=== PATIENT | female | born 1950 | race Caucasian/White ===

== ENCOUNTER 2018-03-28 06:28 | Day surgery (SDC) | payer MEDICARE, BC ==
[2018-03-28] MEDS ORDERED: Bupivacaine 0.5% 50 ML MDV ONE (06:59)
[2018-03-28] MEDS ORDERED: ceFAZolin 2 GM in Premix Bag 1 BAG IV ONE (07:00)
[2018-03-28] MEDS ORDERED: Lactated Ringers 1,000 ML IV SCH (07:00)
[2018-03-28] MEDS ORDERED: Propofol 200 MG/20 ML SDV ONE (07:29)
[2018-03-28] MEDS ORDERED: Midazolam 1 MG/ML 2 ML SDV ONE (07:29)
[2018-03-28] MEDS ORDERED: fentaNYL 100 MCG/2 ML SDV ONE (07:29)
--- NOTE | 2018-04-04 09:56 | OR ---
DATE OF PROCEDURE: 03/28/2018 PREOPERATIVE DIAGNOSIS: Left carpal tunnel. POSTOPERATIVE DIAGNOSIS: Left carpal tunnel. PROCEDURE PERFORMED: Release of left transverse carpal ligament. ESTIMATED BLOOD LOSS: Minimum. COMPLICATIONS: No complication. INDICATIONS: Jordana is a 67-year-old. This was diagnosed in 2014, she had moderate to severe bilateral carpal tunnel. She waited, but this got worse for the last year, quite significant in the last 6 months, tingling, burning sensation daily basis, not only at nighttime, but in the daytime seems to alter significantly her daily activities. We decided initially to proceed with a left carpal tunnel. We had discussed bilateral carpal tunnel release, but during surgery in the morning she said she would like to start with the left side, but I believe, this is a respectable demand. I have discussed with the patient the possible risks, benefits, alternatives, and complications of surgery. The nature of the surgery was explained. All questions were answered and I had informed consent. DESCRIPTION OF PROCEDURE: The patient was taken to the OR. I did my markings at the left wrist. She did receive antibiotics preop. The BRAIDING OPERATOR proceeded with slight IV sedation. The patient was put on her back and tourniquet was applied on the left upper extremity in proximity. Sterile prep and dressing were done in the usual manner on the left wrist. Time- out was taken to identify the correct surgical site to make sure all instrumentation were present in the room. I did local block Marcaine 0.25 plain subcutaneous tissue down to the transverse carpal ligament of her left wrist. The arm was elevated, tourniquet was raised to 250 mmHg. An incision was done with the scalpel starting at the wrist crease going ulnar to the thenar muscle belly about 3 cm and dissection was carried down to the subcutaneous tissue down to the transverse carpal ligament. A slight opening is done proximally with Kathy scissors, making sure not to violate the deep structures and a groove adapter was passed underneath the transverse carpal ligament and a gradual release is done. The nerve shows slight inflammation but was intact. After the surgery was done, the site was washed with saline. The skin was closed with nylon 3-0 simple sutures and compressing dressing was applied. Tourniquet was released. Blood loss was minimum. There was no complication. The patient tolerated well the operation and she was sent to recovery room in good condition. Jean-Claude Smith MD /[id number]
== END 2018-03-28 09:40 | disposition home or self-care (01) ==
LOC: JP.SDS 06:28
PROVIDERS: ATTEND Orthopaedic Surgery
DX: G56.03 Carpal tunnel syndrome, bilateral upper limbs (principal); E03.9 Hypothyroidism, unspecified; I10 Essential (primary) hypertension; E66.9 Obesity, unspecified; Z68.43 Body mass index [BMI] 50.0-59.9, adult; Z79.2 Long term (current) use of antibiotics; Z79.899 Other long term (current) drug therapy; Z88.8 Allergy status to other drugs, medicaments and biological substances
CPT/HCPCS: 64721; J0690; J2250; J2704; J3010; J7120

== ENCOUNTER 2018-08-01 06:00 | Day surgery (SDC) | payer MEDICARE, BC ==
[2018-08-01] MEDS ORDERED: ceFAZolin 2 GM in Sodium Chloride 0.9% 50 ML IV ONE (06:30)
[2018-08-01] MEDS ORDERED: Lactated Ringers 1,000 ML IV SCH (06:30)
[2018-08-01] MEDS ORDERED: Bupivacaine 0.5% 30 ML SDV ONE (07:09)
[2018-08-01] MEDS ORDERED: Propofol 200 MG/20 ML SDV ONE (07:19)
[2018-08-01] MEDS ORDERED: fentaNYL 100 MCG/2 ML SDV ONE (07:19)
[2018-08-01] MEDS ORDERED: Midazolam 1 MG/ML 2 ML SDV ONE (07:19)
[2018-08-01] MEDS ORDERED: Ketorolac 60 MG/2 ML SDV ONE (08:12)
--- NOTE | 2018-08-01 09:27 | OR ---
DATE OF PROCEDURE: 08/01/2018 PREOPERATIVE DIAGNOSIS: Right carpal tunnel. POSTOPERATIVE DIAGNOSIS: Right carpal tunnel. PROCEDURE PERFORMED: Release of right transverse carpal ligament. BLOOD LOSS: Minimal. COMPLICATIONS: No complication. INDICATIONS: Jordana has been having some numbness and tingling sensation just for the last few years. She had an EMG done in 2014 showing [id number] carpal tunnel. Since it was persisting quite significantly for the last six months to nine months, it was decided to proceed with surgery starting on the right side. I had discussed with the patient the possible risks, benefits, alternatives, and complications of surgery. The nature of the surgery was explained, all questions were answered, and I had informed consent. DESCRIPTION OF PROCEDURE: The patient was taken into the OR. I did my markings beforehand at the right wrist, and she did receive antibiotics preoperatively. The DOORMAKER proceeded with slight IV sedation. The patient was put on her back. A tourniquet was applied at the right upper extremity proximity. Sterile prep and dressing was done in the usual manner on the right wrist. Time-out was taken to identify the correct surgical site and to make sure all instrumentation were present in the room. I did a local block of Marcaine 0.25% plain to the subcutaneous tissue of the right wrist. The arm was elevated. Tourniquet was raised to 250 mmHg. An incision was done starting at the wrist crease with the scalpel and going ulnar to the thenar muscle belly about 3 cm. Dissection was carried down to the subcutaneous tissue and down to the transverse carpal ligament. A slight opening was done proximal with [place] scissors, making sure not to violate the deep structures. A groove adapter was passed and a complete release was done. The ligament was quite thick. There was some inflammation of the nerve, but the nerve was intact. The whole site was washed with saline. The skin was closed with nylon 3-0 simple sutures. A compressing dressing was applied. Tourniquet was released. Blood loss was minimal. There was no complication. The patient tolerated well the operation. She was sent to the recovery room in a good condition. Jean-Claude Smith MD /[id number]
== END 2018-08-01 09:10 | disposition home or self-care (01) ==
LOC: JP.SDS 06:00
PROVIDERS: ATTEND Orthopaedic Surgery
DX: G56.01 Carpal tunnel syndrome, right upper limb (principal); E03.9 Hypothyroidism, unspecified; M17.10 Unilateral primary osteoarthritis, unspecified knee; E66.9 Obesity, unspecified; Z68.43 Body mass index [BMI] 50.0-59.9, adult; Z79.899 Other long term (current) drug therapy; Z88.8 Allergy status to other drugs, medicaments and biological substances
CPT/HCPCS: 64721; J0690; J1885; J2250; J2704; J3010; J3490; J7050; J7120

== ENCOUNTER 2019-02-26 00:29 | Inpatient (IN) | payer BC, MEDICARE ==
--- NOTE | 2019-02-26 01:12 | EDM.PDOC ---
ED HPI GENERAL MEDICAL PROBLEM - General Chief Complaint: Gastrointestinal Problem Stated Complaint: ABD PAIN Time Seen by Provider: 02/26/19 01:05 Source of Information: Reports: Patient History Limitations: Reports: No Limitations - History of Present Illness INITIAL COMMENTS - FREE TEXT/NARRATIVE: 68-year-old female with lower abdominal pain for the past 3 days. She thought was getting slightly better this afternoon but it's worse tonight. Some chills, bowels are slower but she did have a small bowel movement this evening. No urinary symptoms. No previous similar pain, she has had an appendectomy and ovarian cyst procedure years ago. Denies nausea or vomiting. Onset: Gradual Duration: Day(s): (3 days) Associated Symptoms: Reports: Fever/Chills, Loss of Appetite, Malaise Lower Abdominal Pain Score (Numeric/FACES): 8 - Related Data Allergies Allergy/AdvReac Type Severity Reaction Status Date / Time lisinopril AdvReac Cough Verified 02/26/19 03:40 Home Meds: Home Meds Acetaminophen [Tylenol Arthritis] 650 mg PO TID PRN 03/27/18 [History] Allopurinol [Zyloprim] 300 mg PO DAILY 03/27/18 [History] Amoxicillin 2,000 mg PO ONETIME 03/27/18 [History] Cholecalciferol (Vitamin D3) [D3 Dots] 2,000 unit PO DAILY 03/27/18 [History] Furosemide 40 mg PO DAILY 03/27/18 [History] Levothyroxine Sodium [Synthroid] 25 mcg PO ASDIRECTED 03/27/18 [History] Losartan Potassium [Cozaar] 100 mg PO DAILY 03/27/18 [History] Magnesium Oxide [Magnesium] 500 mg PO DAILY 03/27/18 [History] [place]-3/DHA/Epa/Fish Oil [[place]-3 Fish Oil 1,000 MG Sfgl] 1 cap PO DAILY [History] Past Medical History HEENT History: Reports: None, Impaired Vision Cardiovascular History: Reports: High Cholesterol, Hypertension TAILMAN History: Reports: , Spontaneous Musculoskeletal History: Reports: Arthritis, Back Pain, Chronic Neurological History: Reports: None Endocrine/Metabolic History: Reports: Hypothyroidism, Obesity/BMI 30+, Vitamin D Deficiency, Other (See Below) Other Endocrine/Metabolic History: para thyroid removed - Infectious Disease History Infectious Disease History: Reports: Chicken Pox, Measles - Past Surgical History Cardiovascular Surgical History: Reports: None GI Surgical History: Reports: Appendectomy, Colonoscopy Female Surgical History: Reports: Section Endocrine Surgical History: Reports: None Neurological Surgical History: Reports: Other (See Below) Other Neurological Surgeries/Procedures: back surgery for spinal stenosis Musculoskeletal Surgical History: Reports: Hip Replacement Social & Family History - Family History Family Medical History: Noncontributory - Tobacco Use Smoking Status *Q: Never Smoker - Caffeine Use Caffeine Use: Reports: Coffee - Recreational Drug Use Recreational Drug Use: No ED ROS GENERAL - Review of Systems Review Of Systems: See Below Constitutional: Reports: Chills, Malaise HEENT: Reports: No Symptoms Respiratory: Reports: No Symptoms Cardiovascular: Reports: No Symptoms GI/Abdominal: Reports: Abdominal Pain : Reports: No Symptoms Skin: Reports: No Symptoms Neurological: Reports: No Symptoms ED EXAM, GI/ABD - Physical Exam Exam: See Below Exam Limited By: No Limitations General Appearance: Alert, No Apparent Distress Eyes: Bilateral: Normal Appearance (No jaundice) Respiratory/Chest: No Respiratory Distress, Lungs Clear Cardiovascular: Regular Rate, Rhythm GI/Abdominal Exam: Normal Bowel Sounds, Soft, Tender (Very tender with rebound tenderness in the suprapubic and left abdomen ) Extremities: Pedal Edema (Symmetric significant pedal edema) Neurological: Alert, Oriented Psychiatric: Normal Affect, Normal Mood Course - Vital Signs Last Recorded V/S: Last Vital Signs Temp 98.8 F 02/26/19 03:29 Pulse 70 02/26/19 04:22 Resp 18 02/26/19 04:22 BP 179/82 H 02/26/19 03:29 Pulse Ox 89 L 02/26/19 04:22 - Orders/Labs/Meds Orders: Active Orders 24 hr Category Date Time Status CULTURE URINE [RM] Stat Lab 02/26/19 02:44 Received Medication Orders Acetaminophen (Tylenol) 650 mg PO Q4H PRN PRN Reason: Pain (Mild 1-3)/fever Albuterol (Proventil Neb Soln) 2.5 mg NEB Q4H PRN PRN Reason: Shortness Of Breath/wheezing Allopurinol (Zyloprim) 300 mg PO DAILY VIJAY Bisacodyl (Dulcolax) 5 mg PO DAILY PRN PRN Reason: Constipation Docusate Sodium (Colace) 100 mg PO BID PRN PRN Reason: Constipation Furosemide (Lasix) 40 mg PO DAILY [facility] Ampicillin Sodium/Sulbactam (Sodium 3 gm/ Sodium Chloride) 100 mls @ 200 mls/ hr IV Q6H [facility] Sodium Chloride (Normal Saline) 1,000 mls @ 125 mls/hr IV ASDIRECTED VIJAY Last Admin: 02/26/19 04:09 Dose: 125 mls/hr Levothyroxine Sodium (Levothyroxine) 25 mcg PO ACBREAKFAST [facility] Losartan Potassium (Cozaar) 100 mg PO DAILY [facility] Melatonin (Melatonin) 6 mg PO BEDTIME PRN PRN Reason: Insomnia Ondansetron HCl (Zofran Odt) 4 mg PO Q6H PRN PRN Reason: Nausea able to take PO Ondansetron HCl (Zofran) 4 mg IV Q4H PRN PRN Reason: Nausea/Vomiting Oxycodone HCl (Oxycodone) 5 mg PO Q4H PRN PRN Reason: Pain (moderate 4-6) Last Admin: 02/26/19 04:26 Dose: 5 mg Pantoprazole Sodium (Protonix Iv) 40 mg IVPUSH ACBREAKFAST [facility] Labs: Laboratory Tests 02/26/19 02/26/19 02/26/19 Range/Units 01:09 01:23 01:23 WBC 25.1 H (4.5-11.0) K/uL RBC 5.48 (3.30-5.50) M/uL Hgb 16.1 H (12.0-15.0) g/dL Hct 49.5 H (36.0-48.0) % MCV 90 (80-98) fL MCH 29 (27-31) pg MCHC 33 (32-36) % Plt Count 218 (150-400) K/uL Neut % (Auto) 83 H (36-66) % Lymph % (Auto) 8 L (24-44) % Cloud % (Auto) 9 H (2-6) % Eos % (Auto) 0 L (2-4) % Baso % (Auto) 0 (0-1) % Sodium 133 L (140-148) mmol/L Potassium 4.0 (3.6-5.2) mmol/L Chloride 97 L (100-108) mmol/L Carbon Dioxide 27 (21-32) mmol/L Anion Gap 13.0 (5.0-14.0) mmol/L BUN 28 H (7-18) mg/dL Creatinine 1.0 (0.6-1.0) mg/dL Est Cr Clr Drug Dosing 39.50 mL/min Estimated GFR (MDRD) 55 L (>60) Glucose 139 H (74-106) mg/dL Calcium 9.2 (8.5-10.1) mg/dL AST (15-37) U/L ALT (12-78) U/L Alkaline Phosphatase (46-116) U/L Amylase (25-115) U/L Lipase (73-393) U/L Urine Color Yellow Urine Appearance Cloudy Urine pH 5.0 (4.5-8.0) Ur Specific [place] 1.025 (1.008-1.030) Urine Protein 30 H (NEGATIVE) mg/dL Urine Glucose (UA) Normal (NEGATIVE) mg/dL Urine Ketones 50 H (NEGATIVE) mg/dL Urine Occult Blood Moderate (NEGATIVE) Urine Nitrite Negative (NEGATIVE) Urine Bilirubin Negative (NEGATIVE) Urine Urobilinogen Normal (NORMAL) mg/dL Ur Leukocyte Esterase Large (NEGATIVE) Urine RBC 5-10 H (0-5) Urine WBC 20-30 H (0-5) Ur Epithelial Cells Many Amorphous Sediment Moderate Urine Bacteria Many Urine Mucus Not seen 02/26/19 02/26/19 Range/Units 02:07 02:09 WBC (4.5-11.0) K/uL RBC (3.30-5.50) M/uL Hgb (12.0-15.0) g/dL Hct (36.0-48.0) % MCV (80-98) fL MCH (27-31) pg MCHC (32-36) % Plt Count (150-400) K/uL Neut % (Auto) (36-66) % Lymph % (Auto) (24-44) % Cloud % (Auto) (2-6) % Eos % (Auto) (2-4) % Baso % (Auto) (0-1) % Sodium (140-148) mmol/L Potassium (3.6-5.2) mmol/L Chloride (100-108) mmol/L Carbon Dioxide (21-32) mmol/L Anion Gap (5.0-14.0) mmol/L BUN (7-18) mg/dL Creatinine (0.6-1.0) mg/dL Est Cr Clr Drug Dosing mL/min Estimated GFR (MDRD) (>60) Glucose (74-106) mg/dL Calcium (8.5-10.1) mg/dL AST 17 (15-37) U/L ALT 25 (12-78) U/L Alkaline Phosphatase 100 (46-116) U/L Amylase 110 (25-115) U/L Lipase 293 (73-393) U/L Urine Color Urine Appearance Urine pH (4.5-8.0) Ur Specific [place] (1.008-1.030) Urine Protein (NEGATIVE) mg/dL Urine Glucose (UA) (NEGATIVE) mg/dL Urine Ketones (NEGATIVE) mg/dL Urine Occult Blood (NEGATIVE) Urine Nitrite (NEGATIVE) Urine Bilirubin (NEGATIVE) Urine Urobilinogen (NORMAL) mg/dL Ur Leukocyte Esterase (NEGATIVE) Urine RBC (0-5) Urine WBC (0-5) Ur Epithelial Cells Amorphous Sediment Urine Bacteria Urine Mucus Meds: Medications Generic Name Dose Route Start Last Admin Trade Name Freq PRN Reason Stop Dose Admin Acetaminophen 650 mg 02/26/19 03:29 Tylenol PO Q4H PRN Pain (Mild 1-3)/fever Albuterol 2.5 mg 02/26/19 03:29 Proventil Neb Soln NEB Q4H PRN Shortness Of Breath/wheezing Allopurinol 300 mg 02/26/19 09:00 Zyloprim PO DAILY [facility] Bisacodyl 5 mg 02/26/19 03:29 Dulcolax PO DAILY PRN Constipation Docusate Sodium 100 mg 02/26/19 03:29 Colace PO BID PRN Constipation Furosemide 40 mg 02/26/19 09:00 Lasix PO DAILY [facility] Ampicillin Sodium/Sulbactam 100 mls @ 200 mls/hr 02/26/19 08:00 Sodium 3 gm/ Sodium Chloride IV Q6H [facility] Sodium Chloride 1,000 mls @ 125 mls/hr 02/26/19 03:29 02/26/19 04:09 Normal Saline IV 125 mls/hr ASDIRECTED VIJAY Administration Levothyroxine Sodium 25 mcg 02/26/19 07:30 Levothyroxine PO ACBREAKFAST [facility] Losartan Potassium 100 mg 02/26/19 09:00 Cozaar PO DAILY [facility] Melatonin 6 mg 02/26/19 03:29 Melatonin PO BEDTIME PRN Insomnia Ondansetron HCl 4 mg 02/26/19 03:29 Zofran Odt PO Q6H PRN Nausea able to take PO Ondansetron HCl 4 mg 02/26/19 03:29 Zofran IV Q4H PRN Nausea/Vomiting Oxycodone HCl 5 mg 02/26/19 03:29 02/26/19 04:26 Oxycodone PO 5 mg Q4H PRN Administration Pain (moderate 4-6) Pantoprazole Sodium 40 mg 02/26/19 07:30 Protonix Iv IVPUSH ACBREAKFAST VIJAY Discontinued Medications Generic Name Dose Route Start Last Admin Trade Name Freq PRN Reason Stop Dose Admin Fentanyl 50 mcg 02/26/19 02:25 02/26/19 02:33 Sublimaze IVPUSH 02/26/19 02:26 50 mcg ONETIME ONE Administration Ampicillin Sodium/Sulbactam 100 mls @ 200 mls/hr 02/26/19 01:37 02/26/19 01: 53 Sodium 3 gm/ Sodium Chloride IV 02/26/19 02:06 200 mls/hr ONETIME ONE Administration Sodium Chloride 1,000 mls @ 1,000 mls/hr 02/26/19 01:45 02/26/19 01:53 Normal Saline IV 1,000 mls/hr ASDIRECTED VIJAY Administration Levothyroxine Sodium 25,000 mcg 02/26/19 03:29 Levothyroxine PO ASDIRECTED VIJAY Ondansetron HCl 4 mg 02/26/19 02:25 02/26/19 02:30 Zofran IVPUSH 02/26/19 02:26 4 mg ONETIME ONE Administration - Re-Assessments/Exams Free Text/Narrative Re-Assessment/Exam: 02/26/19 01:12 CBC and BMP were obtained as well as a UA by clean catch. CT the abdomen and pelvis without contrast was ordered. Diverticulitis is expected. 02/26/19 02:08 White count returned just 25,000, CT scan shows inflammation around the pancreatic head. Amylase and lipase were added. 02/26/19 02:20 Amylase and lipase are normal. 3 g of Unasyn was given if this may be inflammation from diverticulitis of the transverse colon. Patient will need admission for hydration, pain control, and possibly gallbladder ultrasound or other further evaluation in the morning. Departure - Departure Time of Disposition: 03:35 Disposition: Admitted As Inpatient 64 Condition: Fair Clinical Impression: Abdominal pain - Discharge Information
[2019-02-26] MEDS ORDERED: Ampicillin/Sulbactam Na 3 GM in Sodium Chloride 0.9% 100 ML IV ONE (01:37)
[2019-02-26] MEDS ORDERED: Sodium Chloride 0.9% 1,000 ML IV SCH (01:45)
--- NOTE | 2019-02-26 02:04 | CRLCT ---
INDICATION: Lower abdominal pain. TECHNIQUE: 3 mm noncontrast axial imaging has been performed through the abdomen and pelvis. Sagittal and coronal reconstructions have been obtained. FINDINGS: The lung bases are free of infiltrate. The noncontrast liver is unremarkable. The gallbladder is mildly prominent. Gallstone is noted. Abnormal inflammatory change within the head of the pancreas is identified most compatible with acute pancreatitis. Some stranding of the fat is noted. This is adjacent to the duodenum. No significant peripancreatic fluid is seen. The body and tail demonstrate no significant inflammatory change. No obvious common bile duct stone is seen. No significant dilatation of common bile duct is seen. The noncontrast spleen and bilateral adrenal glands are within normal limits. The kidneys demonstrate no hydronephrosis bilaterally. No significant retroperitoneal lymphadenopathy is seen. The uterus is in the midline. There is some beam hardening artifact due to a right hip arthroplasty. No evidence for bowel obstruction. Retained fluid within the right colon is noted. Some scattered fluid and gas within nondistended small bowel loops are noted. No free air is seen. No intra-abdominal or pelvic abscess is seen. IMPRESSION: 1. Inflammatory changes centered over the head of the pancreas most compatible with acute pancreatitis. No significant fluid is seen. 2. There is a small gallstone identified. No inflammatory change of the gallbladder is seen. 3. Fluid and gas-filled small and large bowel is identified. This is greatest in the right colon. No evidence for high-grade bowel obstruction. Dictated by Noe Degroot MD @ 02/26/2019 2:03:34 AM Please note that all CT scans at this facility use dose modulation, iterative reconstruction, and/or weight-based dosing when appropriate to reduce radiation dose to as low as reasonably achievable. Dictated by: Noe Degroot MD @ 02/26/2019 02:03:43 (Electronically Signed)
[2019-02-26] MEDS ORDERED: fentaNYL 100 MCG/2 ML SDV IVPUSH ONE (02:25)
[2019-02-26] MEDS ORDERED: Ondansetron 4 MG/2 ML SDV IVPUSH ONE (02:25)
--- NOTE | 2019-02-26 03:17 | PCM.HP ---
H&P History of Present Illness - General Date of Service: 02/26/19 Admit Problem/Dx: Admission Diagnosis/Problem Admission Diagnosis/Problem Abdominal pain Source of Information: Patient, Family (Guerita) History Limitations: Reports: No Limitations - History of Present Illness Initial Comments - Free Text/Narative: Chief Complaint: Abdominal pain for 3 days - History of Present Illness 68-year-old female with lower abdominal pain for the past 3 days. She thought was getting slightly better this afternoon but it's worse tonight. Some chills, bowels are slower but she did have a small bowel movement this evening. No urinary symptoms. No previous similar pain, she has had an appendectomy and ovarian cyst procedure years ago. Denies nausea or vomiting. Onset: Gradual Duration: Day(s): (3 days) Associated Symptoms: Reports: Fever/Chills, Loss of Appetite, Malaise Pain Score: 8 ER Evaluation CBC and BMP were obtained as well as a UA by clean catch. CT the abdomen and pelvis without contrast was ordered. Diverticulitis is expected. 02/26/19 02:08 White count returned just 25,000, CT scan shows inflammation around the pancreatic head. Amylase and lipase were added. single gallstone noted 02/26/19 02:20 Amylase and lipase are normal. 3 g of Unasyn was given if this may be inflammation from diverticulitis of the transverse colon. Patient will need admission for hydration, pain control, and possibly gallbladder ultrasound or other further evaluation in the morning. Onset of Symptoms: Reports: Gradual Symptom Onset Date: 02/23/19 Duration of Symptoms: Reports: Day(s): Location: Reports: Abdomen Quality: Reports: Sharp, Stabbing Severity: Mild (rate pain at 8) Worsens with: Reports: None Associated Symptoms: Reports: Fever/Chills, Loss of Appetite, Nausea/Vomiting ( dry heaves all day on Tuesday), Weakness Lower Abdominal Pain Score (Numeric/FACES): 8 - Related Data Allergies/Adverse Reactions: Allergies Allergy/AdvReac Type Severity Reaction Status Date / Time lisinopril AdvReac Cough Verified 02/26/19 03:40 Home Medications: Home Meds Acetaminophen [Tylenol Arthritis] 650 mg PO TID PRN 03/27/18 [History] Allopurinol [Zyloprim] 300 mg PO DAILY 03/27/18 [History] Amoxicillin 2,000 mg PO ONETIME 03/27/18 [History] Cholecalciferol (Vitamin D3) [D3 Dots] 2,000 unit PO DAILY 03/27/18 [History] Furosemide 40 mg PO DAILY 03/27/18 [History] Levothyroxine Sodium [Synthroid] 25 mg PO ASDIRECTED 03/27/18 [History] Losartan Potassium [Cozaar] 100 mg PO DAILY 03/27/18 [History] Magnesium Oxide [Magnesium] 500 mg PO DAILY 03/27/18 [History] [place]-3/DHA/Epa/Fish Oil [[place]-3 Fish Oil 1,000 MG Sfgl] 1 cap PO DAILY [History] Past Medical History HEENT History: Reports: None, Impaired Vision Cardiovascular History: Reports: High Cholesterol, Hypertension TIRE MAN History: Reports: , Spontaneous Musculoskeletal History: Reports: Arthritis, Back Pain, Chronic Neurological History: Reports: None Endocrine/Metabolic History: Reports: Hypothyroidism, Obesity/BMI 30+, Vitamin D Deficiency, Other (See Below) Other Endocrine/Metabolic History: para thyroid removed - Infectious Disease History Infectious Disease History: Reports: Chicken Pox, Measles - Past Surgical History Cardiovascular Surgical History: Reports: None GI Surgical History: Reports: Appendectomy, Colonoscopy Female Surgical History: Reports: Section Endocrine Surgical History: Reports: None Neurological Surgical History: Reports: Other (See Below) Other Neurological Surgeries/Procedures: back surgery for spinal stenosis Musculoskeletal Surgical History: Reports: Hip Replacement Social & Family History - Family History Family Medical History: Noncontributory - Tobacco Use Smoking Status *Q: Never Smoker - Caffeine Use Caffeine Use: Reports: Coffee - Recreational Drug Use Recreational Drug Use: No - Living Situation & Occupation Living situation: Reports: , with Family (retired [employer] 20 years, [place] 47 years to [place], 9 children, lives in [place], [place].) Occupation: Retired H&P Review of Systems - Review of Systems: Review Of Systems: See Below General: Reports: Fever, Chills, Malaise, Weakness, Decreased Appetite HEENT: Reports: No Symptoms Pulmonary: Reports: No Symptoms Cardiovascular: Reports: No Symptoms Gastrointestinal: Reports: Abdominal Pain, Decreased Appetite, Nausea, Vomiting (dry heaves) Genitourinary: Reports: No Symptoms Musculoskeletal: Reports: Other (severe bilateral leg edema. evaluated at [facility], no intervention) Skin: Reports: No Symptoms Psychiatric: Reports: No Symptoms Neurological: Reports: No Symptoms Hematologic/Lymphatic: Reports: No Symptoms Immunologic: Reports: No Symptoms Exam - Exam Exam: See Below - Vital Signs Vital Signs: Last Vital Signs Temp 37.5 C 02/26/19 01:56 Pulse 70 02/26/19 02:41 Resp 18 02/26/19 02:41 BP 167/74 H 02/26/19 02:41 Pulse Ox 93 L 02/26/19 02:41 Weight: 123.7 kg - Exam Quality Assessment: Supplemental Oxygen General: Alert, Oriented, 4 HEENT: PERRLA, Conjunctiva Clear, EACs Clear, EOMI, Hearing Intact, Mucosa Moist & [place], Nares Patent, Normal Nasal Septum, Posterior Pharynx Clear, TMs Clear, Other (natural teeth) Neck: Supple, Trachea Midline, 2 Lungs: Clear to Auscultation, Normal Respiratory Effort Cardiovascular: Regular Rate, Regular Rhythm GI/Abdominal Exam: Normal Bowel Sounds, Tender (generalized, increase pain RUQ, Epigastric and low pelvis.) (Female) Exam: Deferred Rectal (Female) Exam: Deferred Back Exam: Normal Inspection Extremities: Other (bilateral lymphedema 4+ chronic) Skin: Warm, Dry, Intact Neurological: Strength Equal Bilateral, Normal Speech Neuro Extensive - Mental Status: Alert, Oriented x3, Normal Mood/Affect, Normal Cognition Neuro Extensive - Motor, Sensory, Reflexes: CN II-XII Intact Psychiatric: Alert, Normal Affect, Normal Mood - Patient Data Lab Results Last 24 hrs: Laboratory Results - last 24 hr 02/26/19 02/26/19 02/26/19 Range/Units 01:09 01:23 01:23 WBC 25.1 H (4.5-11.0) K/uL RBC 5.48 (3.30-5.50) M/uL Hgb 16.1 H (12.0-15.0) g/dL Hct 49.5 H (36.0-48.0) % MCV 90 (80-98) fL MCH 29 (27-31) pg MCHC 33 (32-36) % Plt Count 218 (150-400) K/uL Neut % (Auto) 83 H (36-66) % Lymph % (Auto) 8 L (24-44) % [place] % (Auto) 9 H (2-6) % Eos % (Auto) 0 L (2-4) % Baso % (Auto) 0 (0-1) % Sodium 133 L (140-148) mmol/L Potassium 4.0 (3.6-5.2) mmol/L Chloride 97 L (100-108) mmol/L Carbon Dioxide 27 (21-32) mmol/L Anion Gap 13.0 (5.0-14.0) mmol/L BUN 28 H (7-18) mg/dL Creatinine 1.0 (0.6-1.0) mg/dL Est Cr Clr Drug Dosing 39.50 mL/min Estimated GFR (MDRD) 55 L (>60) Glucose 139 H (74-106) mg/dL Calcium 9.2 (8.5-10.1) mg/dL AST (15-37) U/L ALT (12-78) U/L Alkaline Phosphatase (46-116) U/L Amylase (25-115) U/L Lipase (73-393) U/L Urine Color Yellow Urine Appearance Cloudy Urine pH 5.0 (4.5-8.0) Ur Specific [place] 1.025 (1.008-1.030) Urine Protein 30 H (NEGATIVE) mg/dL Urine Glucose (UA) Normal (NEGATIVE) mg/dL Urine Ketones 50 H (NEGATIVE) mg/dL Urine Occult Blood Moderate (NEGATIVE) Urine Nitrite Negative (NEGATIVE) Urine Bilirubin Negative (NEGATIVE) Urine Urobilinogen Normal (NORMAL) mg/dL Ur Leukocyte Esterase Large (NEGATIVE) Urine RBC 5-10 H (0-5) Urine WBC 20-30 H (0-5) Ur Epithelial Cells Many Amorphous Sediment Moderate Urine Bacteria Many Urine Mucus Not seen 02/26/19 02/26/19 Range/Units 02:07 02:09 WBC (4.5-11.0) K/uL RBC (3.30-5.50) M/uL Hgb (12.0-15.0) g/dL Hct (36.0-48.0) % MCV (80-98) fL MCH (27-31) pg MCHC (32-36) % Plt Count (150-400) K/uL Neut % (Auto) (36-66) % Lymph % (Auto) (24-44) % [place] % (Auto) (2-6) % Eos % (Auto) (2-4) % Baso % (Auto) (0-1) % Sodium (140-148) mmol/L Potassium (3.6-5.2) mmol/L Chloride (100-108) mmol/L Carbon Dioxide (21-32) mmol/L Anion Gap (5.0-14.0) mmol/L BUN (7-18) mg/dL Creatinine (0.6-1.0) mg/dL Est Cr Clr Drug Dosing mL/min Estimated GFR (MDRD) (>60) Glucose (74-106) mg/dL Calcium (8.5-10.1) mg/dL AST 17 (15-37) U/L ALT 25 (12-78) U/L Alkaline Phosphatase 100 (46-116) U/L Amylase 110 (25-115) U/L Lipase 293 (73-393) U/L Urine Color Urine Appearance Urine pH (4.5-8.0) Ur Specific [place] (1.008-1.030) Urine Protein (NEGATIVE) mg/dL Urine Glucose (UA) (NEGATIVE) mg/dL Urine Ketones (NEGATIVE) mg/dL Urine Occult Blood (NEGATIVE) Urine Nitrite (NEGATIVE) Urine Bilirubin (NEGATIVE) Urine Urobilinogen (NORMAL) mg/dL Ur Leukocyte Esterase (NEGATIVE) Urine RBC (0-5) Urine WBC (0-5) Ur Epithelial Cells Amorphous Sediment Urine Bacteria Urine Mucus Result Diagrams: 02/26/19 01:23 02/26/19 01:23 - Problem List (1) Abdominal pain SNOMED Code(s): 36289123 ICD Code: R10.9 - UNSPECIFIED ABDOMINAL PAIN Status: Acute Priority: High Current Visit: Yes (2) Gallstone SNOMED Code(s): 021094946 ICD Code: K80.20 - CALCULUS OF GALLBLADDER W/O CHOLECYSTITIS W/O OBSTRUCTION Status: Acute Priority: High Current Visit: Yes Qualifiers: Biliary obstruction: without biliary obstruction (3) Hypertension SNOMED Code(s): 23384291 ICD Code: I10 - ESSENTIAL (PRIMARY) HYPERTENSION Status: Acute Priority: Low Current Visit: Yes Qualifiers: Hypertension type: unspecified Qualified Code(s): I10 - Essential (primary ) hypertension Problem List Initiated/Reviewed/Updated: Yes Orders Last 24hrs: Active Orders 24 hr Category Date Time Status Patient Status Manage Transfer [TRANSFER] Routine ADT 02/26/19 02:55 Active CULTURE URINE [RM] Stat Lab 02/26/19 02:44 Received Sodium Chloride 0.9% [Normal Saline] 1,000 ml Med 02/26/19 01:45 Active IV ASDIRECTED Resuscitation Status Routine Resus Stat 02/26/19 02:57 Ordered Medication Orders Sodium Chloride (Normal Saline) 1,000 mls @ 1,000 mls/hr IV ASDIRECTED VIJAY Last Admin: 02/26/19 01:53 Dose: 1,000 mls/hr Assessment/Plan Comment:: ASSESSMENT AND PLAN - History of Present Illness 68-year-old female with lower abdominal pain for the past 3 days. She thought was getting slightly better this afternoon but it's worse tonight. Some chills, bowels are slower but she did have a small bowel movement this evening. No urinary symptoms. No previous similar pain, she has had an appendectomy and ovarian cyst procedure years ago. Denies nausea or vomiting. Also has severe bilateral leg lymphedema, which has been evaluated by [facility], no treatment recommended. ER Evaluation CBC and BMP were obtained as well as a UA by clean catch. CT the abdomen and pelvis without contrast was ordered. Diverticulitis is expected. 02/26/19 02:08 White count returned just 25,000, CT scan shows inflammation around the pancreatic head. Amylase and lipase were added. single gallstone noted 02/26/19 02:20 Amylase and lipase are normal. 3 g of Unasyn was given if this may be inflammation from diverticulitis of the transverse colon. Patient will need admission for hydration, pain control, and possibly gallbladder ultrasound or other further evaluation in the morning. Abdominal pain -CT reports acute pancreatitis,with a normal lipase and amylase, likely secondary to diverticulitis, although this was not described on CT scan report. White blood cell count is elevated 25.1. -Nothing by mouth -IV fluids for hydration Normal Saline rate to 125 mL/h -Pain and nausea medication as needed -IV Unasyn 3 gram every 6 hours, first dose given in ER. -Ultrasound Abdominal complete in a.m. Hypertension -continue home medications MAINTENANCE ISSUES -DVT prophylaxis; SCD -GI prophylaxis; IV Protonix -Chavarria catheter; not indicated -Nutrition; nothing by mouth -Nicotine dependence; not required -consult to Spiritual for daily prayers CODE STATUS-FULL CODE ADMISSION STATUS-patient will be admitted to inpatient status, expect at least a 2 night hospital stay for evaluation and management of problems as outlined above. At the time of this admission I do not reasonably expected evaluation and management of this problem will require more than a 96 hour hospital stay. DISPOSITION-anticipate discharge to home after the hospital stay. PRIMARY CARE PROVIDER-Dr. Arana HOSPITALIST: Dr. Jamison Ibanez
[2019-02-26] MEDS ORDERED: Albuterol 0.083% 2.5 MG/3 ML Neb Soln NEB PRN (03:29)
[2019-02-26] MEDS ORDERED: Levothyroxine 25 MCG Tab PO SCH (03:29)
[2019-02-26] MEDS ORDERED: Ondansetron 4 MG/2 ML SDV IV PRN (03:29)
[2019-02-26] MEDS ORDERED: Docusate Sodium 100 MG Cap PO PRN (03:29)
[2019-02-26] MEDS ORDERED: Bisacodyl 5 MG Tab PO PRN (03:29)
[2019-02-26] MEDS: Sodium Chloride 0.9% 1,000 ML IV SCH ×2 (04:09→14:07)
[2019-02-26] MEDS: oxyCODONE 5 MG Tab PO PRN ×2 (04:26→13:56)
[2019-02-26] MEDS: Acetaminophen 325 MG Tab PO PRN (07:22)
[2019-02-26] MEDS ORDERED: Ampicillin/Sulbactam Na 3 GM in Sodium Chloride 0.9% 100 ML IV SCH (08:00)
--- NOTE | 2019-02-26 08:14 | CRLUS ---
INDICATION: Abdominal pain. CT exam demonstrated pancreatic inflammation COMPARISON: CT abdomen pelvis dated 02/26/2019 TECHNIQUE: 2D silva-scale imaging and color Doppler analysis was performed of the abdomen. FINDINGS: The patient`s liver is of normal size and has uniform echogenicity. The pancreatic body appears normal. The pancreatic head and tail were obscured. There is no evidence of ascites. There is a normal appearance of the hepatic IVC and proximal abdominal aorta. Small stones and sludge are noted within the gallbladder lumen. The reel winder stated the patient was not focally tender over the gallbladder during the exam. There is no evidence of edema within the gallbladder wall or pericholecystic fluid. The gallbladder wall measures 3 mm in thickness. The common bile duct is of normal size and measures 5.7 mm in diameter at the level of the faheem hepatis. The right kidney measures 11.2 cm in length and the left kidney measures 11 cm. There is no evidence of a calculus or hydronephrosis within either kidney. IMPRESSION: Cholelithiasis and biliary sludge. No evidence of acute inflammation within the gallbladder wall or bile duct obstruction. Dictated by Dada Owens MD @ 02/26/2019 8:12:22 AM Read by: Dada Owens MD @ 02/26/2019 08:12:28 RD/Dictated by: Dada Owens MD @ 02/27/2019 3:14:00 PM (Electronically Signed)
[2019-02-26] MEDS: Pantoprazole 40 MG Vial IVPUSH SCH (08:29)
[2019-02-26] MEDS: Levothyroxine 25 MCG Tab PO SCH (08:41)
[2019-02-26] MEDS: Losartan 50 MG Tab PO SCH (08:53)
[2019-02-26] MEDS: Furosemide 40 MG Tab PO SCH (08:54)
[2019-02-26] MEDS: Allopurinol 300 MG Tab PO SCH (08:55)
[2019-02-26] MEDS: Ampicillin/Sulbactam Na 3 GM in Sodium Chloride 0.9% 100 ML IV SCH ×3 (09:14→20:29)
--- NOTE | 2019-02-26 10:47 | PCM.PN ---
- General Info Date of Service: 02/26/19 Subjective Update: Ms. Hood is a 68-year-old woman admitted through the emergency department early this morning with abdominal pain, nausea and vomiting. Pain and been present for a period of about 3 days, very intense and associated with nausea and vomiting. Pain mainly located in the cosmo-umbilical area, with some radiation to the back. CT scan of abdomen and pelvis showing evidence of inflammation at the head of the pancreas, lipase and amylase levels were within normal range. Follow-up labs this morning show improvement in white blood cell count 22,000, lipase level remains normal, bilirubin mildly elevated at 1.5. Abdominal ultrasound obtained this morning shows sludge and stones within the gallbladder but no evidence of bladder wall thickening or ductal dilatation. Pain has improved since admission, but not totally resolved. Functional Status: Reports: Pain Controlled, Urinating - Review of Systems General: Reports: Weakness. Denies: Fever, Chills Pulmonary: Reports: No Symptoms Cardiovascular: Reports: No Symptoms Gastrointestinal: Reports: Abdominal Pain, Nausea, Vomiting. Denies: Diarrhea, Difficulty Swallowing, Hematochezia, Melena - Patient Data Vitals - Most Recent: Last Vital Signs Temp 98.4 F 02/26/19 08:00 Pulse 73 02/26/19 08:00 Resp 20 02/26/19 08:00 BP 143/58 H 02/26/19 08:53 Pulse Ox 93 L 02/26/19 08:00 Weight - Most Recent: 272 lb 11.389 oz I&O - Last 24 Hours: Intake & Output 02/25/19 02/26/19 02/26/19 22:59 06:59 14:59 Intake Total 328 100 Output Total 125 200 Balance 203 -100 Lab Results Last 24 Hours: Laboratory Results - last 24 hr 02/26/19 02/26/19 02/26/19 Range/Units 01:09 01:23 01:23 WBC 25.1 H (4.5-11.0) K/uL RBC 5.48 (3.30-5.50) M/uL Hgb 16.1 H (12.0-15.0) g/dL Hct 49.5 H (36.0-48.0) % MCV 90 (80-98) fL MCH 29 (27-31) pg MCHC 33 (32-36) % Plt Count 218 (150-400) K/uL Neut % (Auto) 83 H (36-66) % Lymph % (Auto) 8 L (24-44) % [place] % (Auto) 9 H (2-6) % Eos % (Auto) 0 L (2-4) % Baso % (Auto) 0 (0-1) % Sodium 133 L (140-148) mmol/L Potassium 4.0 (3.6-5.2) mmol/L Chloride 97 L (100-108) mmol/L Carbon Dioxide 27 (21-32) mmol/L Anion Gap 13.0 (5.0-14.0) mmol/L BUN 28 H (7-18) mg/dL Creatinine 1.0 (0.6-1.0) mg/dL Est Cr Clr Drug Dosing 39.50 mL/min Estimated GFR (MDRD) 55 L (>60) Glucose 139 H (74-106) mg/dL Calcium 9.2 (8.5-10.1) mg/dL Total Bilirubin (0.2-1.0) mg/dL AST (15-37) U/L ALT (12-78) U/L Alkaline Phosphatase (46-116) U/L Total Protein (6.4-8.2) g/dL Albumin (3.4-5.0) g/dL Globulin (2.3-3.5) g/dL Albumin/Globulin Ratio (1.2-2.2) Amylase (25-115) U/L Lipase (73-393) U/L Urine Color Yellow Urine Appearance Cloudy Urine pH 5.0 (4.5-8.0) Ur Specific [place] 1.025 (1.008-1.030) Urine Protein 30 H (NEGATIVE) mg/dL Urine Glucose (UA) Normal (NEGATIVE) mg/dL Urine Ketones 50 H (NEGATIVE) mg/dL Urine Occult Blood Moderate (NEGATIVE) Urine Nitrite Negative (NEGATIVE) Urine Bilirubin Negative (NEGATIVE) Urine Urobilinogen Normal (NORMAL) mg/dL Ur Leukocyte Esterase Large (NEGATIVE) Urine RBC 5-10 H (0-5) Urine WBC 20-30 H (0-5) Ur Epithelial Cells Many Amorphous Sediment Moderate Urine Bacteria Many Urine Mucus Not seen 02/26/19 02/26/19 02/26/19 Range/Units 02:07 02:09 09:30 WBC (4.5-11.0) K/uL RBC (3.30-5.50) M/uL Hgb (12.0-15.0) g/dL Hct (36.0-48.0) % MCV (80-98) fL MCH (27-31) pg MCHC (32-36) % Plt Count (150-400) K/uL Neut % (Auto) (36-66) % Lymph % (Auto) (24-44) % [place] % (Auto) (2-6) % Eos % (Auto) (2-4) % Baso % (Auto) (0-1) % Sodium (140-148) mmol/L Potassium (3.6-5.2) mmol/L Chloride (100-108) mmol/L Carbon Dioxide (21-32) mmol/L Anion Gap (5.0-14.0) mmol/L BUN (7-18) mg/dL Creatinine (0.6-1.0) mg/dL Est Cr Clr Drug Dosing mL/min Estimated GFR (MDRD) (>60) Glucose (74-106) mg/dL Calcium (8.5-10.1) mg/dL Total Bilirubin (0.2-1.0) mg/dL AST 17 (15-37) U/L ALT 25 (12-78) U/L Alkaline Phosphatase 100 (46-116) U/L Total Protein (6.4-8.2) g/dL Albumin (3.4-5.0) g/dL Globulin (2.3-3.5) g/dL Albumin/Globulin Ratio (1.2-2.2) Amylase 110 (25-115) U/L Lipase 293 197 (73-393) U/L Urine Color Urine Appearance Urine pH (4.5-8.0) Ur Specific [place] (1.008-1.030) Urine Protein (NEGATIVE) mg/dL Urine Glucose (UA) (NEGATIVE) mg/dL Urine Ketones (NEGATIVE) mg/dL Urine Occult Blood (NEGATIVE) Urine Nitrite (NEGATIVE) Urine Bilirubin (NEGATIVE) Urine Urobilinogen (NORMAL) mg/dL Ur Leukocyte Esterase (NEGATIVE) Urine RBC (0-5) Urine WBC (0-5) Ur Epithelial Cells Amorphous Sediment Urine Bacteria Urine Mucus 02/26/19 02/26/19 Range/Units 09:30 09:30 WBC 22.7 H (4.5-11.0) K/uL RBC 4.88 (3.30-5.50) M/uL Hgb 14.5 (12.0-15.0) g/dL Hct 44.6 (36.0-48.0) % MCV 91 (80-98) fL MCH 30 (27-31) pg MCHC 33 (32-36) % Plt Count 176 (150-400) K/uL Neut % (Auto) 83 H (36-66) % Lymph % (Auto) 7 L (24-44) % [place] % (Auto) 10 H (2-6) % Eos % (Auto) 0 L (2-4) % Baso % (Auto) 0 (0-1) % Sodium 135 L (140-148) mmol/L Potassium 3.9 (3.6-5.2) mmol/L Chloride 102 (100-108) mmol/L Carbon Dioxide 28 (21-32) mmol/L Anion Gap 8.9 (5.0-14.0) mmol/L BUN 20 H (7-18) mg/dL Creatinine 0.8 (0.6-1.0) mg/dL Est Cr Clr Drug Dosing 51.30 mL/min Estimated GFR (MDRD) > 60 (>60) Glucose 109 H (74-106) mg/dL Calcium 8.9 (8.5-10.1) mg/dL Total Bilirubin 1.6 H (0.2-1.0) mg/dL AST 14 L (15-37) U/L ALT 19 (12-78) U/L Alkaline Phosphatase 85 (46-116) U/L Total Protein 6.0 L (6.4-8.2) g/dL Albumin 2.6 L (3.4-5.0) g/dL Globulin 3.4 (2.3-3.5) g/dL Albumin/Globulin Ratio 0.8 L (1.2-2.2) Amylase (25-115) U/L Lipase (73-393) U/L Urine Color Urine Appearance Urine pH (4.5-8.0) Ur Specific [place] (1.008-1.030) Urine Protein (NEGATIVE) mg/dL Urine Glucose (UA) (NEGATIVE) mg/dL Urine Ketones (NEGATIVE) mg/dL Urine Occult Blood (NEGATIVE) Urine Nitrite (NEGATIVE) Urine Bilirubin (NEGATIVE) Urine Urobilinogen (NORMAL) mg/dL Ur Leukocyte Esterase (NEGATIVE) Urine RBC (0-5) Urine WBC (0-5) Ur Epithelial Cells Amorphous Sediment Urine Bacteria Urine Mucus Med Orders - Current: Current Medications Acetaminophen (Tylenol) 650 mg PO Q4H PRN PRN Reason: Pain (Mild 1-3)/fever Last Admin: 02/26/19 07:22 Dose: 650 mg Albuterol (Proventil Neb Soln) 2.5 mg NEB Q4H PRN PRN Reason: Shortness Of Breath/wheezing Allopurinol (Zyloprim) 300 mg PO DAILY [facility] Last Admin: 02/26/19 08:55 Dose: 300 mg Bisacodyl (Dulcolax) 5 mg PO DAILY PRN PRN Reason: Constipation Docusate Sodium (Colace) 100 mg PO BID PRN PRN Reason: Constipation Furosemide (Lasix) 40 mg PO DAILY [facility] Last Admin: 02/26/19 08:54 Dose: 40 mg Sodium Chloride (Normal Saline) 1,000 mls @ 125 mls/hr IV ASDIRECTED [facility] Last Admin: 02/26/19 04:09 Dose: 125 mls/hr Ampicillin Sodium/Sulbactam (Sodium 3 gm/ Sodium Chloride) 100 mls @ 200 mls/ hr IV Q6H [facility] Last Admin: 02/26/19 09:14 Dose: 200 mls/hr Levothyroxine Sodium (Levothyroxine) 25 mcg PO ACBREAKFAST [facility] Last Admin: 02/26/19 08:41 Dose: 25 mcg Losartan Potassium (Cozaar) 100 mg PO DAILY [facility] Last Admin: 02/26/19 08:53 Dose: 100 mg Melatonin (Melatonin) 6 mg PO BEDTIME PRN PRN Reason: Insomnia Ondansetron HCl (Zofran Odt) 4 mg PO Q6H PRN PRN Reason: Nausea able to take PO Ondansetron HCl (Zofran) 4 mg IV Q4H PRN PRN Reason: Nausea/Vomiting Oxycodone HCl (Oxycodone) 5 mg PO Q4H PRN PRN Reason: Pain (moderate 4-6) Last Admin: 02/26/19 04:26 Dose: 5 mg Pantoprazole Sodium (Protonix Iv) 40 mg IVPUSH ACBREAKFAST [facility] Last Admin: 02/26/19 08:29 Dose: 40 mg Discontinued Medications Fentanyl (Sublimaze) 50 mcg IVPUSH ONETIME ONE Stop: 02/26/19 02:26 Last Admin: 02/26/19 02:33 Dose: 50 mcg Ampicillin Sodium/Sulbactam (Sodium 3 gm/ Sodium Chloride) 100 mls @ 200 mls/ hr IV ONETIME ONE Stop: 02/26/19 02:06 Last Admin: 02/26/19 01:53 Dose: 200 mls/hr Sodium Chloride (Normal Saline) 1,000 mls @ 1,000 mls/hr IV ASDIRECTED [facility] Last Admin: 02/26/19 01:53 Dose: 1,000 mls/hr Levothyroxine Sodium (Levothyroxine) 25,000 mcg PO ASDIRECTED [facility] Ondansetron HCl (Zofran) 4 mg IVPUSH ONETIME ONE Stop: 02/26/19 02:26 Last Admin: 02/26/19 02:30 Dose: 4 mg - Exam Quality Assessment: DVT Prophylaxis General: Alert, Oriented, Cooperative, Mild Distress Lungs: Clear to Auscultation, Normal Respiratory Effort Cardiovascular: Regular Rate, Regular Rhythm, No Murmurs GI/Abdominal Exam: Soft, No Organomegaly, Tender. No: Distended, Guarding, Rigid, Rebound Extremities: Non-Tender, No Pedal Edema - Problem List Review Problem List Initiated/Reviewed/Updated: Yes - My Orders Last 24 Hours: My Active Orders 02/26/19 10:17 Cholangiopancreatography [MR] Stat 02/27/19 05:00 CBC WITH AUTO DIFF [HEME] Timed COMPREHENSIVE METABOLIC PN,CMP [CHEM] Timed LIPASE [CHEM] Timed - Plan Plan:: ASSESSMENT AND PLAN Abdominal pain -CT reports acute pancreatitis,with a normal lipase and amylase, ultrasound shows sludge within the gallbladder as well as stones, no evidence of gallbladder wall thickening. Bilirubin mildly elevated, lipase level remains within normal range. An improved since admission but not totally resolved. -Nothing by mouth -IV fluids for hydration Normal Saline rate to 125 mL/h -Pain and nausea medication as needed -IV Unasyn 3 gram every 6 hours, first dose given in ER. -MRCP today -Consider HIDA study on Tuesday if MRCP is unremarkable Hypertension -continue home medications MAINTENANCE ISSUES -DVT prophylaxis; SCD -GI prophylaxis; IV Protonix -Chavarria catheter; not indicated -Nutrition; nothing by mouth -Nicotine dependence; not required CODE STATUS-FULL CODE ADMISSION STATUS-patient will be admitted to inpatient status, expect at least a 2 night hospital stay for evaluation and management of problems as outlined above. At the time of this admission I do not reasonably expected evaluation and management of this problem will require more than a 96 hour hospital stay. DISPOSITION-anticipate discharge to home after the hospital stay. PRIMARY CARE PROVIDER-Dr. Arana
--- NOTE | 2019-02-26 13:44 | CRLMR ---
INDICATION: Pancreatitis. COMPARISON: CT scan of the abdomen and pelvis and abdominal ultrasound dated 26 February 2019. TECHNIQUE: MRCP with heavily T2 weighted 2D and 3D MRCP images. Axial T1 in- and out of phase and T2 weighted images also performed. No gadolinium administered. FINDINGS: No significant fatty infiltration of the liver. No focal abnormalities identified in the visualized portions of the liver, spleen, adrenal glands, and kidneys. No hydronephrosis. Mild edema around the head of the pancreas. Fatty infiltration of the pancreas. The pancreas is otherwise unremarkable. No intra or extrahepatic bile duct dilation with the common bile duct measuring 5 mm. No filling defects in the biliary system. Normal size of the main pancreatic duct. IMPRESSION: 1. No bile duct dilation. No choledocholithiasis. Normal size of the main pancreatic duct. 2. Mild edema around the head of the pancreas likely representing acute pancreatitis. Dictated by Peng Oneal MD @ 02/26/2019 1:42:13 PM Dictated by: Peng Oenal MD @ 02/26/2019 13:42:24 (Electronically Signed)
[2019-02-26] MEDS: Ondansetron 4 MG Tab.DIS PO PRN (20:34)
[2019-02-26] MEDS: Melatonin 3 MG Tab PO PRN (21:49)
[2019-02-27] MEDS: Ampicillin/Sulbactam Na 3 GM in Sodium Chloride 0.9% 100 ML IV SCH ×4 (02:41→21:15)
[2019-02-27] MEDS: Levothyroxine 25 MCG Tab PO SCH (07:37)
[2019-02-27] MEDS: Pantoprazole 40 MG Vial IVPUSH SCH (07:38)
[2019-02-27] MEDS: Ondansetron 4 MG Tab.DIS PO PRN (07:42)
[2019-02-27] MEDS: Losartan 50 MG Tab PO SCH (08:37)
[2019-02-27] MEDS: Allopurinol 300 MG Tab PO SCH (08:38)
[2019-02-27] MEDS: Furosemide 40 MG Tab PO SCH (08:38)
--- NOTE | 2019-02-27 09:51 | PCM.PN ---
- General Info Date of Service: 02/27/19 Subjective Update: Ms. Hood is felt improved since yesterday, abdominal pain has resolved, she continues to experience intermittent episodes of nausea. MRCP showed inflammation of the pancreas but no evidence of ductal stones or obstruction. Vital signs have been stable and she has remained afebrile, white blood cell count remained significantly elevated. Functional Status: Reports: Pain Controlled, Tolerating Diet, Ambulating, Urinating - Review of Systems General: Reports: Weakness. Denies: Fever, Chills Pulmonary: Reports: No Symptoms Cardiovascular: Reports: No Symptoms Gastrointestinal: Reports: Nausea. Denies: Abdominal Pain, Constipation, Diarrhea, Difficulty Swallowing, Hematochezia, Melena, Vomiting Genitourinary: Reports: No Symptoms - Patient Data Vitals - Most Recent: Last Vital Signs Temp 98.6 F 02/27/19 08:00 Pulse 82 02/27/19 08:00 Resp 18 02/27/19 08:00 BP 141/61 H 02/27/19 08:37 Pulse Ox 92 L 02/27/19 04:00 Weight - Most Recent: 272 lb 11.389 oz I&O - Last 24 Hours: Intake & Output 02/26/19 02/27/19 02/27/19 22:59 06:59 14:59 Intake Total 1253 360 Output Total 200 150 Balance 1053 -150 360 Lab Results Last 24 Hours: Laboratory Results - last 24 hr 02/26/19 02/26/19 02/27/19 Range/Units 09:30 09:30 04:45 WBC 19.1 H (4.5-11.0) K/uL RBC 4.62 (3.30-5.50) M/uL Hgb 13.7 (12.0-15.0) g/dL Hct 43.2 (36.0-48.0) % MCV 94 (80-98) fL MCH 30 (27-31) pg MCHC 32 (32-36) % Plt Count 142 L (150-400) K/uL Neut % (Auto) 83 H (36-66) % Lymph % (Auto) 8 L (24-44) % [place] % (Auto) 8 H (2-6) % Eos % (Auto) 1 L (2-4) % Baso % (Auto) 0 (0-1) % Sodium 135 L (140-148) mmol/L Potassium 3.9 (3.6-5.2) mmol/L Chloride 102 (100-108) mmol/L Carbon Dioxide 28 (21-32) mmol/L Anion Gap 8.9 (5.0-14.0) mmol/L BUN 20 H (7-18) mg/dL Creatinine 0.8 (0.6-1.0) mg/dL Est Cr Clr Drug Dosing 51.30 mL/min Estimated GFR (MDRD) > 60 (>60) Glucose 109 H (74-106) mg/dL Calcium 8.9 (8.5-10.1) mg/dL Total Bilirubin 1.6 H (0.2-1.0) mg/dL AST 14 L (15-37) U/L ALT 19 (12-78) U/L Alkaline Phosphatase 85 (46-116) U/L Total Protein 6.0 L (6.4-8.2) g/dL Albumin 2.6 L (3.4-5.0) g/dL Globulin 3.4 (2.3-3.5) g/dL Albumin/Globulin Ratio 0.8 L (1.2-2.2) Lipase 197 (73-393) U/L 02/27/19 Range/Units 04:45 WBC (4.5-11.0) K/uL RBC (3.30-5.50) M/uL Hgb (12.0-15.0) g/dL Hct (36.0-48.0) % MCV (80-98) fL MCH (27-31) pg MCHC (32-36) % Plt Count (150-400) K/uL Neut % (Auto) (36-66) % Lymph % (Auto) (24-44) % [place] % (Auto) (2-6) % Eos % (Auto) (2-4) % Baso % (Auto) (0-1) % Sodium 138 L (140-148) mmol/L Potassium 4.0 (3.6-5.2) mmol/L Chloride 103 (100-108) mmol/L Carbon Dioxide 31 (21-32) mmol/L Anion Gap 8.0 (5.0-14.0) mmol/L BUN 16 (7-18) mg/dL Creatinine 0.9 (0.6-1.0) mg/dL Est Cr Clr Drug Dosing 45.60 mL/min Estimated GFR (MDRD) > 60 (>60) Glucose 107 H (74-106) mg/dL Calcium 8.8 (8.5-10.1) mg/dL Total Bilirubin 1.2 H (0.2-1.0) mg/dL AST 14 L (15-37) U/L ALT 20 (12-78) U/L Alkaline Phosphatase 90 (46-116) U/L Total Protein 5.9 L (6.4-8.2) g/dL Albumin 2.3 L (3.4-5.0) g/dL Globulin 3.6 H (2.3-3.5) g/dL Albumin/Globulin Ratio 0.6 L (1.2-2.2) Lipase 111 (73-393) U/L Jono Results Last 24 Hours: Microbiology 02/26/19 02:44 Urine Culture - Preliminary Urine, Clean Catch MIXED PACHECO DAY 1 Med Orders - Current: Current Medications Acetaminophen (Tylenol) 650 mg PO Q4H PRN PRN Reason: Pain (Mild 1-3)/fever Last Admin: 02/26/19 07:22 Dose: 650 mg Albuterol (Proventil Neb Soln) 2.5 mg NEB Q4H PRN PRN Reason: Shortness Of Breath/wheezing Allopurinol (Zyloprim) 300 mg PO DAILY [facility] Last Admin: 02/27/19 08:38 Dose: 300 mg Bisacodyl (Dulcolax) 5 mg PO DAILY PRN PRN Reason: Constipation Docusate Sodium (Colace) 100 mg PO BID PRN PRN Reason: Constipation Furosemide (Lasix) 40 mg PO DAILY [facility] Last Admin: 02/27/19 08:38 Dose: 40 mg Ampicillin Sodium/Sulbactam (Sodium 3 gm/ Sodium Chloride) 100 mls @ 200 mls/ hr IV Q6H [facility] Last Admin: 02/27/19 08:38 Dose: 200 mls/hr Levothyroxine Sodium (Levothyroxine) 25 mcg PO ACBREAKFAST [facility] Last Admin: 02/27/19 07:37 Dose: 25 mcg Losartan Potassium (Cozaar) 100 mg PO DAILY [facility] Last Admin: 02/27/19 08:37 Dose: 100 mg Melatonin (Melatonin) 6 mg PO BEDTIME PRN PRN Reason: Insomnia Last Admin: 02/26/19 21:49 Dose: 6 mg Ondansetron HCl (Zofran Odt) 4 mg PO Q6H PRN PRN Reason: Nausea able to take PO Last Admin: 02/27/19 07:42 Dose: 4 mg Ondansetron HCl (Zofran) 4 mg IV Q4H PRN PRN Reason: Nausea/Vomiting Oxycodone HCl (Oxycodone) 5 mg PO Q4H PRN PRN Reason: Pain (moderate 4-6) Last Admin: 02/26/19 13:56 Dose: 5 mg Pantoprazole Sodium (Protonix Iv) 40 mg IVPUSH ACBREAKFAST [facility] Last Admin: 02/27/19 07:38 Dose: 40 mg Discontinued Medications Fentanyl (Sublimaze) 50 mcg IVPUSH ONETIME ONE Stop: 02/26/19 02:26 Last Admin: 02/26/19 02:33 Dose: 50 mcg Ampicillin Sodium/Sulbactam (Sodium 3 gm/ Sodium Chloride) 100 mls @ 200 mls/ hr IV ONETIME ONE Stop: 02/26/19 02:06 Last Admin: 02/26/19 01:53 Dose: 200 mls/hr Sodium Chloride (Normal Saline) 1,000 mls @ 1,000 mls/hr IV ASDIRECTED [facility] Last Admin: 02/26/19 01:53 Dose: 1,000 mls/hr Sodium Chloride (Normal Saline) 1,000 mls @ 125 mls/hr IV ASDIRECTED [facility] Last Admin: 02/26/19 14:07 Dose: 125 mls/hr Levothyroxine Sodium (Levothyroxine) 25,000 mcg PO ASDIRECTED [facility] Ondansetron HCl (Zofran) 4 mg IVPUSH ONETIME ONE Stop: 02/26/19 02:26 Last Admin: 02/26/19 02:30 Dose: 4 mg - Exam General: Alert, Oriented, Cooperative, Mild Distress Lungs: Clear to Auscultation, Normal Respiratory Effort Cardiovascular: Regular Rate, Regular Rhythm, No Murmurs GI/Abdominal Exam: Soft, No Organomegaly, No Distention, Tender. No: Guarding, Rigid, Rebound Extremities: Non-Tender, No Pedal Edema - Problem List Review Problem List Initiated/Reviewed/Updated: Yes - My Orders Last 24 Hours: My Active Orders 02/26/19 Lunch Clear Liquid Diet [DIET] 02/28/19 05:00 CBC WITH AUTO DIFF [HEME] Timed COMPREHENSIVE METABOLIC PN,CMP [CHEM] Timed 02/28/19 08:00 Cholescintigraphy w Pharm Int [NM] Routine - Plan Plan:: ASSESSMENT AND PLAN Abdominal pain -CT reports acute pancreatitis,with a normal lipase and amylase, ultrasound shows sludge within the gallbladder as well as stones, no evidence of gallbladder wall thickening. Bilirubin improved but still modestly elevated, lipase still normal, white blood cell count improved but still elevated. Tolerated a clear liquid diet throughout the day yesterday. MRCP showed inflammation at the head of the pancreas but no other significant abnormalities. -Regular diet -Saline lock -Pain and nausea medication as needed -IV Unasyn 3 gram every 6 hours, first dose given in ER. -CCK stimulated HIDA scan in a.m. Hypertension -continue home medications MAINTENANCE ISSUES -DVT prophylaxis; SCD -GI prophylaxis; IV Protonix -Chavarria catheter; not indicated -Nutrition; nothing by mouth -Nicotine dependence; not required CODE STATUS-FULL CODE ADMISSION STATUS-patient will be admitted to inpatient status, expect at least a 2 night hospital stay for evaluation and management of problems as outlined above. At the time of this admission I do not reasonably expected evaluation and management of this problem will require more than a 96 hour hospital stay. DISPOSITION-anticipate discharge to home after the hospital stay. PRIMARY CARE PROVIDER-Dr. Arana
[2019-02-27] MEDS: Melatonin 3 MG Tab PO PRN (21:17)
[2019-02-28] MEDS: Ampicillin/Sulbactam Na 3 GM in Sodium Chloride 0.9% 100 ML IV SCH ×4 (03:35→20:52)
[2019-02-28] MEDS: Levothyroxine 25 MCG Tab PO SCH (07:22)
[2019-02-28] MEDS: Pantoprazole 40 MG Vial IVPUSH SCH (07:22)
--- NOTE | 2019-02-28 10:01 | CRLNM ---
INDICATION: Abdominal pain, elevated bilirubin level. TECHNIQUE: 5.5 millicuries of technetium-99m labeled Mebrofenin has been given intravenously. Images have been performed to approximately 20 minutes. Patient received 2.5 mcg of IV Kinevac and 30 minutes of additional imaging have been performed. FINDINGS: Uptake by the liver is normal. The extrahepatic bile duct is identified at 15 minutes and small bowel activity identified at 19 minutes. The gallbladder begins to fill at approximately 20 minutes. Patient has been given CCK and there is a good response. The calculated gallbladder ejection fraction is 72 percent. Increasing small bowel activity is noted after CCK. IMPRESSION: Hepatobiliary scan is within normal limits. The cystic and common bile ducts are patent. Uptake by liver is normal. The calculated gallbladder ejection fraction is normal at 72 percent. Dictated by Noe Degroot MD @ Feb 28 2019 9:55AM Signed by Dr. Noe Degroot @ Feb 28 2019 10:00AM
[2019-02-28] MEDS: Allopurinol 300 MG Tab PO SCH (10:04)
[2019-02-28] MEDS: Furosemide 40 MG Tab PO SCH (10:04)
[2019-02-28] MEDS: Losartan 50 MG Tab PO SCH (10:04)
--- NOTE | 2019-02-28 10:40 | PCM.PN ---
- General Info Date of Service: 02/28/19 Subjective Update: Ms. Hood has been stable since yesterday, abdominal pain has essentially resolved , she continues to experience intermittent nausea with decreased appetite. Blood cell count is improved definitely to 12,400. CCK stimulated HIDA obtained this morning is within normal range, ejection fraction of 72% and no symptoms with use of CCK. Functional Status: Reports: Pain Controlled, Urinating - Review of Systems General: Reports: No Symptoms Pulmonary: Reports: No Symptoms Cardiovascular: Reports: No Symptoms Gastrointestinal: Reports: Nausea. Denies: Abdominal Pain, Difficulty Swallowing, Hematochezia, Melena, Vomiting - Patient Data Vitals - Most Recent: Last Vital Signs Temp 97.3 F 02/28/19 06:59 Pulse 71 02/28/19 06:59 Resp 18 02/28/19 06:59 BP 147/86 H 02/28/19 10:04 Pulse Ox 94 L 02/28/19 06:59 Weight - Most Recent: 272 lb 11.389 oz I&O - Last 24 Hours: Intake & Output 02/27/19 02/28/19 02/28/19 22:59 06:59 14:59 Intake Total 740 340 Output Total 700 225 300 Balance 40 115 -300 Lab Results Last 24 Hours: Laboratory Results - last 24 hr 02/28/19 02/28/19 Range/Units 04:42 04:42 WBC 12.4 H (4.5-11.0) K/uL RBC 4.51 (3.30-5.50) M/uL Hgb 13.5 (12.0-15.0) g/dL Hct 42.3 (36.0-48.0) % MCV 94 (80-98) fL MCH 30 (27-31) pg MCHC 32 (32-36) % Plt Count 158 (150-400) K/uL Neut % (Auto) 76 H (36-66) % Lymph % (Auto) 13 L (24-44) % [place] % (Auto) 10 H (2-6) % Eos % (Auto) 1 L (2-4) % Baso % (Auto) 0 (0-1) % Sodium 140 (140-148) mmol/L Potassium 3.8 (3.6-5.2) mmol/L Chloride 102 (100-108) mmol/L Carbon Dioxide 29 (21-32) mmol/L Anion Gap 9.0 (5.0-14.0) mmol/L BUN 30 H D (7-18) mg/dL Creatinine 1.1 H (0.6-1.0) mg/dL Est Cr Clr Drug Dosing 37.31 mL/min Estimated GFR (MDRD) 49 L (>60) Glucose 108 H (74-106) mg/dL Calcium 8.6 (8.5-10.1) mg/dL Total Bilirubin 0.7 (0.2-1.0) mg/dL AST 32 D (15-37) U/L ALT 43 D (12-78) U/L Alkaline Phosphatase 115 (46-116) U/L Total Protein 5.9 L (6.4-8.2) g/dL Albumin 2.3 L (3.4-5.0) g/dL Globulin 3.6 H (2.3-3.5) g/dL Albumin/Globulin Ratio 0.6 L (1.2-2.2) Jono Results Last 24 Hours: Microbiology 02/26/19 02:44 Urine Culture - Final Urine, Clean Catch MIXED PACHECO DAY 2 Med Orders - Current: Current Medications Acetaminophen (Tylenol) 650 mg PO Q4H PRN PRN Reason: Pain (Mild 1-3)/fever Last Admin: 02/26/19 07:22 Dose: 650 mg Albuterol (Proventil Neb Soln) 2.5 mg NEB Q4H PRN PRN Reason: Shortness Of Breath/wheezing Allopurinol (Zyloprim) 300 mg PO DAILY [facility] Last Admin: 02/28/19 10:04 Dose: 300 mg Bisacodyl (Dulcolax) 5 mg PO DAILY PRN PRN Reason: Constipation Docusate Sodium (Colace) 100 mg PO BID PRN PRN Reason: Constipation Last Admin: 02/27/19 21:16 Dose: 100 mg Furosemide (Lasix) 40 mg PO DAILY [facility] Last Admin: 02/28/19 10:04 Dose: 40 mg Ampicillin Sodium/Sulbactam (Sodium 3 gm/ Sodium Chloride) 100 mls @ 200 mls/ hr IV Q6H [facility] Last Admin: 02/28/19 10:10 Dose: 200 mls/hr Lactobacillus Rhamnosus (Culturelle) 1 cap PO BID [facility] Levothyroxine Sodium (Levothyroxine) 25 mcg PO ACBREAKFAST [facility] Last Admin: 02/28/19 07:22 Dose: 25 mcg Losartan Potassium (Cozaar) 100 mg PO DAILY [facility] Last Admin: 02/28/19 10:04 Dose: 100 mg Melatonin (Melatonin) 6 mg PO BEDTIME PRN PRN Reason: Insomnia Last Admin: 02/27/19 21:17 Dose: 6 mg Ondansetron HCl (Zofran Odt) 4 mg PO Q6H PRN PRN Reason: Nausea able to take PO Last Admin: 02/27/19 07:42 Dose: 4 mg Ondansetron HCl (Zofran) 4 mg IV Q4H PRN PRN Reason: Nausea/Vomiting Oxycodone HCl (Oxycodone) 5 mg PO Q4H PRN PRN Reason: Pain (moderate 4-6) Last Admin: 02/26/19 13:56 Dose: 5 mg Pantoprazole Sodium (Protonix Iv) 40 mg IVPUSH ACBREAKFAST [facility] Last Admin: 02/28/19 07:22 Dose: 40 mg Discontinued Medications Fentanyl (Sublimaze) 50 mcg IVPUSH ONETIME ONE Stop: 02/26/19 02:26 Last Admin: 02/26/19 02:33 Dose: 50 mcg Ampicillin Sodium/Sulbactam (Sodium 3 gm/ Sodium Chloride) 100 mls @ 200 mls/ hr IV ONETIME ONE Stop: 02/26/19 02:06 Last Admin: 02/26/19 01:53 Dose: 200 mls/hr Sodium Chloride (Normal Saline) 1,000 mls @ 1,000 mls/hr IV ASDIRECTED [facility] Last Admin: 02/26/19 01:53 Dose: 1,000 mls/hr Sodium Chloride (Normal Saline) 1,000 mls @ 125 mls/hr IV ASDIRECTED [facility] Last Admin: 02/26/19 14:07 Dose: 125 mls/hr Levothyroxine Sodium (Levothyroxine) 25,000 mcg PO ASDIRECTED [facility] Ondansetron HCl (Zofran) 4 mg IVPUSH ONETIME ONE Stop: 02/26/19 02:26 Last Admin: 02/26/19 02:30 Dose: 4 mg - Exam General: Alert, Oriented, Cooperative, Mild Distress Lungs: Clear to Auscultation, Normal Respiratory Effort Cardiovascular: Regular Rate, Regular Rhythm, No Murmurs GI/Abdominal Exam: Soft, Non-Tender, No Organomegaly, No Distention Extremities: Non-Tender, No Pedal Edema - Problem List Review Problem List Initiated/Reviewed/Updated: Yes - My Orders Last 24 Hours: My Active Orders 02/27/19 10:32 Patient Status [ADT] Routine 02/28/19 10:00 Lactobacillus Rhamnosus GG [Culturelle] 1 cap PO BID 02/28/19 Breakfast Regular Diet [DIET] 03/01/19 05:00 BASIC METABOLIC PANEL,BMP [CHEM] Timed CBC WITH AUTO DIFF [HEME] Timed - Plan Plan:: ASSESSMENT AND PLAN Acute pancreatitis -likely secondary to a passed common duct stone. CCK stimulated HIDA scan unremarkable -Regular diet -Saline lock -Pain and nausea medication as needed -IV Unasyn 3 gram every 6 hours, first dose given in ER. -CCK stimulated HIDA scan in a.m. Hypertension -continue home medications MAINTENANCE ISSUES -DVT prophylaxis; SCD -GI prophylaxis; not indicated -Chavarria catheter; not indicated -Nutrition; nothing by mouth -Nicotine dependence; not required CODE STATUS-FULL CODE ADMISSION STATUS-patient will be admitted to inpatient status, expect at least a 2 night hospital stay for evaluation and management of problems as outlined above. At the time of this admission I do not reasonably expected evaluation and management of this problem will require more than a 96 hour hospital stay. DISPOSITION-anticipate discharge to home tomorrow PRIMARY CARE PROVIDER-Dr. Arana
[2019-02-28] MEDS: Lactobacillus Rhamnosus GG (Probiotic) Cap PO SCH ×2 (12:37→20:52)
[2019-03-01] MEDS: Ampicillin/Sulbactam Na 3 GM in Sodium Chloride 0.9% 100 ML IV SCH ×2 (02:40→08:31)
[2019-03-01] MEDS: Levothyroxine 25 MCG Tab PO SCH (07:32)
[2019-03-01] MEDS: Furosemide 40 MG Tab PO SCH (08:23)
[2019-03-01] MEDS: Lactobacillus Rhamnosus GG (Probiotic) Cap PO SCH ×2 (08:23→21:47)
[2019-03-01] MEDS: Allopurinol 300 MG Tab PO SCH (08:23)
[2019-03-01] MEDS: Losartan 50 MG Tab PO SCH (08:24)
[2019-03-01] MEDS ORDERED: Potassium Chloride 20 MEQ Tab.ER PO ONE (09:00)
[2019-03-01] MEDS ORDERED: Ondansetron 4 MG Tab.DIS PO PRN (10:46)
--- NOTE | 2019-03-01 10:51 | PCM.PN ---
- General Info Date of Service: 03/01/19 Subjective Update: Ms. Hood is not feeling as well this morning, mild to moderate epigastric pain and nausea. Vital signs have been stable and she has remained afebrile. White blood cell count has normalized. Appetite modestly improved and there have been no associated symptoms with eating. Functional Status: Reports: Tolerating Diet, Ambulating, Urinating - Review of Systems General: Reports: Weakness. Denies: Fever, Chills Pulmonary: Reports: No Symptoms Cardiovascular: Reports: No Symptoms Gastrointestinal: Reports: Abdominal Pain, Decreased Appetite, Diarrhea, Nausea , Vomiting. Denies: Constipation, Difficulty Swallowing - Patient Data Vitals - Most Recent: Last Vital Signs Temp 97.4 F 03/01/19 07:00 Pulse 53 L 03/01/19 07:00 Resp 16 03/01/19 07:00 BP 158/87 H 03/01/19 08:24 Pulse Ox 94 L 03/01/19 07:00 Weight - Most Recent: 272 lb 11.389 oz I&O - Last 24 Hours: Intake & Output 02/28/19 03/01/19 03/01/19 22:59 06:59 14:59 Intake Total 300 100 840 Output Total 600 300 400 Balance -300 -200 440 Lab Results Last 24 Hours: Laboratory Results - last 24 hr 03/01/19 03/01/19 Range/Units 05:00 05:00 WBC 9.6 (4.5-11.0) K/uL RBC 4.58 (3.30-5.50) M/uL Hgb 13.6 (12.0-15.0) g/dL Hct 42.9 (36.0-48.0) % MCV 94 (80-98) fL MCH 30 (27-31) pg MCHC 32 (32-36) % Plt Count 165 (150-400) K/uL Neut % (Auto) 71 H (36-66) % Lymph % (Auto) 18 L (24-44) % [place] % (Auto) 9 H (2-6) % Eos % (Auto) 2 (2-4) % Baso % (Auto) 0 (0-1) % Sodium 142 (140-148) mmol/L Potassium 3.5 L (3.6-5.2) mmol/L Chloride 105 (100-108) mmol/L Carbon Dioxide 29 (21-32) mmol/L Anion Gap 11.5 (5.0-14.0) mmol/L BUN 26 H (7-18) mg/dL Creatinine 0.9 (0.6-1.0) mg/dL Est Cr Clr Drug Dosing 45.60 mL/min Estimated GFR (MDRD) > 60 (>60) Glucose 104 (74-106) mg/dL Calcium 8.6 (8.5-10.1) mg/dL Med Orders - Current: Current Medications Acetaminophen (Tylenol) 650 mg PO Q4H PRN PRN Reason: Pain (Mild 1-3)/fever Last Admin: 02/26/19 07:22 Dose: 650 mg Albuterol (Proventil Neb Soln) 2.5 mg NEB Q4H PRN PRN Reason: Shortness Of Breath/wheezing Allopurinol (Zyloprim) 300 mg PO DAILY [facility] Last Admin: 03/01/19 08:23 Dose: 300 mg Amoxicillin/Clavulanate Potassium (Augmentin 875 Mg/125 Mg) 1 tab PO Q12HR [facility] Bisacodyl (Dulcolax) 5 mg PO DAILY PRN PRN Reason: Constipation Docusate Sodium (Colace) 100 mg PO BID PRN PRN Reason: Constipation Last Admin: 02/27/19 21:16 Dose: 100 mg Furosemide (Lasix) 40 mg PO DAILY [facility] Last Admin: 03/01/19 08:23 Dose: 40 mg Lactobacillus Rhamnosus (Culturelle) 1 cap PO BID [facility] Last Admin: 03/01/19 08:23 Dose: 1 cap Levothyroxine Sodium (Levothyroxine) 25 mcg PO ACBREAKFAST [facility] Last Admin: 03/01/19 07:32 Dose: 25 mcg Losartan Potassium (Cozaar) 100 mg PO DAILY [facility] Last Admin: 03/01/19 08:24 Dose: 100 mg Melatonin (Melatonin) 6 mg PO BEDTIME PRN PRN Reason: Insomnia Last Admin: 02/27/19 21:17 Dose: 6 mg Ondansetron HCl (Zofran Odt) 4 mg PO Q6H PRN PRN Reason: Nausea able to take PO Last Admin: 02/27/19 07:42 Dose: 4 mg Ondansetron HCl (Zofran Odt) 4 mg PO Q4H PRN PRN Reason: Nausea/Vomiting Oxycodone HCl (Oxycodone) 5 mg PO Q4H PRN PRN Reason: Pain (moderate 4-6) Last Admin: 02/26/19 13:56 Dose: 5 mg Pantoprazole Sodium (Protonix) 40 mg PO BIDAC [facility] Discontinued Medications Fentanyl (Sublimaze) 50 mcg IVPUSH ONETIME ONE Stop: 02/26/19 02:26 Last Admin: 02/26/19 02:33 Dose: 50 mcg Ampicillin Sodium/Sulbactam (Sodium 3 gm/ Sodium Chloride) 100 mls @ 200 mls/ hr IV ONETIME ONE Stop: 02/26/19 02:06 Last Admin: 02/26/19 01:53 Dose: 200 mls/hr Sodium Chloride (Normal Saline) 1,000 mls @ 1,000 mls/hr IV ASDIRECTED ON [facility] Last Admin: 02/26/19 01:53 Dose: 1,000 mls/hr Sodium Chloride (Normal Saline) 1,000 mls @ 125 mls/hr IV ASDIRECTED [facility] Last Admin: 02/26/19 14:07 Dose: 125 mls/hr Ampicillin Sodium/Sulbactam (Sodium 3 gm/ Sodium Chloride) 100 mls @ 200 mls/ hr IV Q6H [facility] Last Admin: 03/01/19 08:31 Dose: 200 mls/hr Levothyroxine Sodium (Levothyroxine) 25,000 mcg PO ASDIRECTED ON [facility] Ondansetron HCl (Zofran) 4 mg IVPUSH ONETIME ONE Stop: 02/26/19 02:26 Last Admin: 02/26/19 02:30 Dose: 4 mg Ondansetron HCl (Zofran) 4 mg IV Q4H PRN PRN Reason: Nausea/Vomiting Last Admin: 03/01/19 08:30 Dose: 4 mg Pantoprazole Sodium (Protonix Iv) 40 mg IVPUSH ACBREAKFAST ON [facility] Last Admin: 02/28/19 07:22 Dose: 40 mg Potassium Chloride (Klor-Con M20) 40 meq PO ONETIME ONE Stop: 03/01/19 09:01 Last Admin: 03/01/19 09:00 Dose: 40 meq - Exam Quality Assessment: DVT Prophylaxis General: Alert, Oriented, Cooperative, Mild Distress Lungs: Clear to Auscultation, Normal Respiratory Effort Cardiovascular: Regular Rate, Regular Rhythm, No Murmurs GI/Abdominal Exam: Soft, No Organomegaly, Tender. No: Distended, Guarding, Rigid, Rebound Extremities: Non-Tender, No Pedal Edema - Problem List Review Problem List Initiated/Reviewed/Updated: Yes - My Orders Last 24 Hours: My Active Orders 02/28/19 10:00 Lactobacillus Rhamnosus GG [Culturelle] 1 cap PO BID 03/01/19 10:45 POTASSIUM,K [CHEM] Timed 03/01/19 10:46 Ondansetron [Zofran ODT] 4 mg PO Q4H PRN Pantoprazole [ProTONIX] 40 mg PO BIDAC 03/01/19 11:00 Amoxicillin/Clavulanate K [Augmentin 875 MG/125 MG] 1 tab PO Q12HR - Plan Plan:: ASSESSMENT AND PLAN Acute pancreatitis -likely secondary to a passed common duct stone. Evaluation has otherwise been unremarkable, white blood cell count now normalized. She has experienced some recurrent epigastric pain this morning associated with nausea -Regular diet -Saline lock -Pain and nausea medication as needed -Augmentin 875 mg by mouth every 12 hours -Protonix 40 mg by mouth twice a day -Zofran ODT 4 mg every 4 hours as needed for nausea Hypertension -continue home medications MAINTENANCE ISSUES -DVT prophylaxis; SCD -GI prophylaxis; not indicated -Chavarria catheter; not indicated -Nutrition; nothing by mouth -Nicotine dependence; not required CODE STATUS-FULL CODE ADMISSION STATUS-patient will be admitted to inpatient status, expect at least a 2 night hospital stay for evaluation and management of problems as outlined above. At the time of this admission I do not reasonably expected evaluation and management of this problem will require more than a 96 hour hospital stay. DISPOSITION-anticipate discharge to home tomorrow PRIMARY CARE PROVIDER-Dr. Arana
[2019-03-01] MEDS: Pantoprazole 40 MG Tab.CR PO SCH ×2 (12:10→16:19)
[2019-03-01] MEDS: Amoxicillin/Clavulanate K 875-125 MG Tab PO SCH ×2 (12:10→21:47)
[2019-03-01] MEDS: Acetaminophen 325 MG Tab PO PRN (12:15)
[2019-03-02] MEDS: Levothyroxine 25 MCG Tab PO SCH (07:44)
[2019-03-02] MEDS: Pantoprazole 40 MG Tab.CR PO SCH (07:44)
[2019-03-02] MEDS: Allopurinol 300 MG Tab PO SCH (09:59)
[2019-03-02] MEDS: Losartan 50 MG Tab PO SCH (09:59)
[2019-03-02] MEDS: Lactobacillus Rhamnosus GG (Probiotic) Cap PO SCH (09:59)
[2019-03-02] MEDS: Furosemide 40 MG Tab PO SCH (09:59)
[2019-03-02] MEDS: Amoxicillin/Clavulanate K 875-125 MG Tab PO SCH (10:03)
--- NOTE | 2019-03-02 12:34 | PCM.DCSUM1 ---
Discharge Summary - Hospital Course Brief History: Ms. Hood is a 68-year-old woman who is admitted through the emergency department with abdominal pain, nausea, vomiting secondary to pancreatitis. - Discharge Data Discharge Date: 03/02/19 Discharge Disposition: Home, Self-Care 01 Condition: Fair - Discharge Diagnosis/Problem(s) (1) Pancreatitis due to common bile duct stone SNOMED Code(s): 02413948 ICD Code: K85.90 - ACUTE PANCREATITIS WITHOUT NECROSIS OR INFECTION, UNSP; K80.50 - CALCULUS OF BILE DUCT W/O CHOLANGITIS OR CHOLECYST W/O OBST Status: Acute Current Visit: Yes (2) Abdominal pain SNOMED Code(s): 74218546 ICD Code: R10.9 - UNSPECIFIED ABDOMINAL PAIN Status: Acute Priority: High Current Visit: Yes (3) Hypertension SNOMED Code(s): 95971388 ICD Code: I10 - ESSENTIAL (PRIMARY) HYPERTENSION Status: Chronic Priority : Low Current Visit: No Qualifiers: Hypertension type: unspecified Qualified Code(s): I10 - Essential (primary ) hypertension - Patient Summary/Data Consults: Consultations 02/26/19 03:29 Spiritual Care Follow Up [CONS] Routine Hospital Course: Ms. Hood is a 68-year-old female with lower abdominal pain for 3 days prior to admission. She thought was getting slightly better this afternoon but it became worse on the evening of admission. Some chills, bowels are slower but she did have a small bowel movement this evening. No urinary symptoms. No previous similar pain, she has had an appendectomy and ovarian cyst procedure years ago. Denies nausea or vomiting. Evaluation in the emergency department included elevation in white blood cell count, normal lipase level. CT scan of the abdomen and pelvis showed evidence of inflammation around the head of the pancreas. On admission she was given IV fluids for hydration as well as medication as needed for pain and nausea. Because of temperature elevation and elevation white blood cell count she was started on IV antibiotic therapy with Unasyn. Following morning ultrasound was obtained which showed sludge and stones within the gallbladder but no evidence of gallbladder wall thickening or ductal dilatation. Liver tests were repeated, bilirubin was found to be elevated at 1.6. MRCP was obtained and again showed evidence of inflammation at the head of the pancreas but no evidence of ductal dilatation or obstruction. Following day a CCK stimulated HIDA scan was obtained and showed normal gallbladder function with an ejection fraction about 70%. There was no reproduction of symptoms with use of cholecystokinin. White blood cell count gradually normalized and her symptoms gradually improved. At the time of discharge she was no longer experiencing abdominal pain nausea or vomiting. Was felt likely that she had passed a common duct stone that was responsible for the elevated bilirubin level as well as pancreatitis. Activity will be as tolerated and she will remain on a soft low residue diet over the next week. Follow-up appointment will be scheduled with her primary care provider within one week. - Patient Instructions Diet: GI Soft/Low Residue/Low Fiber Activity: As Tolerated - Discharge Plan *PRESCRIPTION DRUG MONITORING PROGRAM REVIEWED*: Not Applicable *COPY OF PRESCRIPTION DRUG MONITORING REPORT IN PATIENT WILLIE: Not Applicable Prescriptions/Med Rec: Amoxicillin/Clavulanate K [Augmentin 875-125 MG] 1 tab PO BID #10 tablet Lactobacillus Rhamnosus GG [Culturelle] 1 cap PO BID #60 cap Pantoprazole [ProTONIX] 40 mg PO DAILY #30 tab.cr Home Medications: Home Meds Acetaminophen [Tylenol Arthritis] 650 mg PO TID PRN 03/27/18 [History] Allopurinol [Zyloprim] 300 mg PO DAILY 03/27/18 [History] Amoxicillin 2,000 mg PO ONETIME 03/27/18 [History] Cholecalciferol (Vitamin D3) [D3 Dots] 2,000 unit PO DAILY 03/27/18 [History] Furosemide 40 mg PO DAILY 03/27/18 [History] Levothyroxine Sodium [Synthroid] 25 mcg PO ASDIRECTED 03/27/18 [History] Losartan Potassium [Cozaar] 100 mg PO DAILY 03/27/18 [History] Magnesium Oxide [Magnesium] 500 mg PO DAILY 03/27/18 [History] [place]-3/DHA/Epa/Fish Oil [[place]-3 Fish Oil 1,000 MG Sfgl] 1 cap PO DAILY [History] Amoxicillin/Clavulanate K [Augmentin 875-125 MG] 1 tab PO BID #10 tablet [Rx] Lactobacillus Rhamnosus GG [Culturelle] 1 cap PO BID #60 cap 03/02/19 [Rx] Pantoprazole [ProTONIX] 40 mg PO DAILY #30 tab.cr 03/02/19 [Rx] Referrals: Mery Arana PA [Primary Care Provider] - 03/12/19 11:30 am (Please arrive 15 minutes early to register for appointment.) - Discharge Summary/Plan Comment DC Time >30 min.: No - Patient Data Vitals - Most Recent: Last Vital Signs Temp 97.4 F 03/02/19 09:48 Pulse 50 L 03/02/19 03:00 Resp 16 03/02/19 09:48 BP 136/59 L 03/02/19 09:59 Pulse Ox 96 03/02/19 09:48 Weight - Most Recent: 272 lb 11.389 oz I&O - Last 24 hours: Intake & Output 03/01/19 03/02/19 03/02/19 22:59 06:59 14:59 Intake Total 600 300 Output Total 950 0 Balance -350 300 Med Orders - Current: Current Medications Acetaminophen (Tylenol) 650 mg PO Q4H PRN PRN Reason: Pain (Mild 1-3)/fever Last Admin: 03/01/19 12:15 Dose: 650 mg Albuterol (Proventil Neb Soln) 2.5 mg NEB Q4H PRN PRN Reason: Shortness Of Breath/wheezing Allopurinol (Zyloprim) 300 mg PO DAILY [facility] Last Admin: 03/02/19 09:59 Dose: 300 mg Amoxicillin/Clavulanate Potassium (Augmentin 875 Mg/125 Mg) 1 tab PO BID [facility] Last Admin: 03/02/19 10:03 Dose: 1 tab Bisacodyl (Dulcolax) 5 mg PO DAILY PRN PRN Reason: Constipation Docusate Sodium (Colace) 100 mg PO BID PRN PRN Reason: Constipation Last Admin: 02/27/19 21:16 Dose: 100 mg Furosemide (Lasix) 40 mg PO DAILY [facility] Last Admin: 03/02/19 09:59 Dose: 40 mg Lactobacillus Rhamnosus (Culturelle) 1 cap PO BID [facility] Last Admin: 03/02/19 09:59 Dose: 1 cap Levothyroxine Sodium (Levothyroxine) 25 mcg PO ACBREAKFAST [facility] Last Admin: 03/02/19 07:44 Dose: 25 mcg Losartan Potassium (Cozaar) 100 mg PO DAILY [facility] Last Admin: 03/02/19 09:59 Dose: 100 mg Melatonin (Melatonin) 6 mg PO BEDTIME PRN PRN Reason: Insomnia Last Admin: 02/27/19 21:17 Dose: 6 mg Ondansetron HCl (Zofran Odt) 4 mg PO Q4H PRN PRN Reason: Nausea/Vomiting Oxycodone HCl (Oxycodone) 5 mg PO Q4H PRN PRN Reason: Pain (moderate 4-6) Last Admin: 02/26/19 13:56 Dose: 5 mg Pantoprazole Sodium (Protonix) 40 mg PO BIDAC [facility] Last Admin: 03/02/19 07:44 Dose: 40 mg Discontinued Medications Fentanyl (Sublimaze) 50 mcg IVPUSH ONETIME ONE Stop: 02/26/19 02:26 Last Admin: 02/26/19 02:33 Dose: 50 mcg Ampicillin Sodium/Sulbactam (Sodium 3 gm/ Sodium Chloride) 100 mls @ 200 mls/ hr IV ONETIME ONE Stop: 02/26/19 02:06 Last Admin: 02/26/19 01:53 Dose: 200 mls/hr Sodium Chloride (Normal Saline) 1,000 mls @ 1,000 [facility]ls[facility] Last Admin: 02/26/19 01:53 Dose: 1,000 mls/hr Sodium Chloride (Normal Saline) 1,000 mls @ 125 mls/hr [facility] Last Admin: 02/26/19 14:07 Dose: 125 mls/hr Ampicillin Sodium/Sulbactam (Sodium 3 gm/ Sodium Chloride) 100 mls @ 200 mls/ hr IV Q6H [facility] Last Admin: 03/01/19 08:31 Dose: 200 mls/hr Levothyroxine Sodium (Levothyroxine) 25,000 mcg [facility] Ondansetron HCl (Zofran) 4 mg IVPUSH ONETIME ONE Stop: 02/26/19 02:26 Last Admin: 02/26/19 02:30 Dose: 4 mg Ondansetron HCl (Zofran Odt) 4 mg PO Q6H PRN PRN Reason: Nausea able to take PO Last Admin: 02/27/19 07:42 Dose: 4 mg Ondansetron HCl (Zofran) 4 mg IV Q4H PRN PRN Reason: Nausea/Vomiting Last Admin: 03/01/19 08:30 Dose: 4 mg Pantoprazole Sodium (Protonix Iv) 40 mg IVPUSH ACBREAKFAST [facility] Last Admin: 02/28/19 07:22 Dose: 40 mg Potassium Chloride (Klor-Con M20) 40 meq PO ONETIME ONE Stop: 03/01/19 09:01 Last Admin: 03/01/19 09:00 Dose: 40 meq - Exam General: Reports: Alert, Oriented, Cooperative, No Acute Distress Lungs: Reports: Clear to Auscultation, Normal Respiratory Effort Cardiovascular: Reports: Regular Rate, Regular Rhythm, No Murmurs GI/Abdominal Exam: Soft, Non-Tender, No Organomegaly, No Distention
== END 2019-03-02 13:53 | disposition home or self-care (01) | DRG 440 ==
LOC: JP.ED 00:29 → JP.ICU 02:55 → JP.MS 02-27 10:30
PROVIDERS: ADMIT Internal Medicine; ATTEND Hospitalist
DX: K85.90 Acute pancreatitis without necrosis or infection, unspecified (principal); K80.50 Calculus of bile duct without cholangitis or cholecystitis without obstruction; I10 Essential (primary) hypertension; E03.9 Hypothyroidism, unspecified; I89.0 Lymphedema, not elsewhere classified; R10.30 Lower abdominal pain, unspecified; E78.00 Pure hypercholesterolemia, unspecified; M19.90 Unspecified osteoarthritis, unspecified site; M54.9 Dorsalgia, unspecified; G89.29 Other chronic pain; E55.9 Vitamin D deficiency, unspecified; H54.7 Unspecified visual loss; Z88.8 Allergy status to other drugs, medicaments and biological substances; Z96.649 Presence of unspecified artificial hip joint
CPT/HCPCS: 36415; 74176; 80048; 81001; 82150; 83690; 84075; 84450; 84460; 85025; 87086; 96365; 96375; 99285; J0295; J2405; J3010; J7030 ×2; 74181; 76700; 78227; 80053; 84132; 96376; A9270-GY; C9113

== ENCOUNTER 2019-04-01 18:37 | Inpatient (IN) | payer MEDICARE ==
[2019-04-01] MEDS ORDERED: fentaNYL 100 MCG/2 ML SDV IVPUSH ONE ×2 (19:24→21:42)
[2019-04-01] MEDS: Lactated Ringers 1,000 ML IV SCH ×3 (19:58→23:29)
--- NOTE | 2019-04-01 20:11 | EDM.PDOC ---
ED HPI GENERAL MEDICAL PROBLEM - General Chief Complaint: Abdominal Pain Stated Complaint: ABN PAIN Time Seen by Provider: 04/01/19 19:30 Source of Information: Reports: Patient History Limitations: Reports: No Limitations - History of Present Illness INITIAL COMMENTS - FREE TEXT/NARRATIVE: 68-year-old female with upper abdominal pain, nausea and vomiting for the past 2 days very similar to symptoms she had a month ago when she was hospitalized for 5 days with pancreatitis. A very thorough evaluation was done at that time, and despite having normal levels of amylase and lipase she had CT evidence of pancreatitis, a normal HIDA scan, and a normal MRCP. She had been feeling better except for some mild pain with eating but over the last 2 days the pain has been significant. No fevers or chills. Very little radiation of pain to her back. She has been on antibiotics for C. difficile, has 2 doses of metronidazole left. Onset: Gradual (worse over the past 2 days) Location: Reports: Abdomen (upper abdomen/epigastric area) Associated Symptoms: Reports: Loss of Appetite, Malaise, Nausea/Vomiting. Denies: Chest Pain, Shortness of Breath mid line abdomen Pain Score (Numeric/FACES): 3 - Related Data Allergies Allergy/AdvReac Type Severity Reaction Status Date / Time lisinopril AdvReac Cough Verified 04/01/19 19:04 Home Meds: Home Meds Acetaminophen [Tylenol Arthritis] 650 mg PO TID PRN 03/27/18 [History] Allopurinol [Zyloprim] 300 mg PO DAILY 03/27/18 [History] Cholecalciferol (Vitamin D3) [D3 Dots] 2,000 unit PO DAILY 03/27/18 [History] Furosemide 40 mg PO DAILY 03/27/18 [History] Levothyroxine Sodium [Synthroid] 25 mcg PO ASDIRECTED 03/27/18 [History] Losartan Potassium [Cozaar] 100 mg PO DAILY 03/27/18 [History] [place]-3/DHA/Epa/Fish Oil [[place]-3 Fish Oil 1,000 MG Sfgl] 1 cap PO DAILY [History] Lactobacillus Rhamnosus GG [Culturelle] 1 cap PO BID #60 cap 03/02/19 [Rx] metroNIDAZOLE [Metronidazole] 1 tab PO DAILY 04/01/19 [History] Levothyroxine Sodium [Synthroid] 37.5 mcg PO ASDIRECTED 04/02/19 [History] Past Medical History HEENT History: Reports: None, Impaired Vision Cardiovascular History: Reports: High Cholesterol, Hypertension Gastrointestinal History: Reports: Pancreatitis GAME MANAGER History: Reports: , Spontaneous Musculoskeletal History: Reports: Arthritis, Back Pain, Chronic Neurological History: Reports: None Endocrine/Metabolic History: Reports: Hypothyroidism, Obesity/BMI 30+, Vitamin D Deficiency, Other (See Below) Other Endocrine/Metabolic History: para thyroid removed - Infectious Disease History Infectious Disease History: Reports: Chicken Pox, Measles - Past Surgical History Cardiovascular Surgical History: Reports: None GI Surgical History: Reports: Appendectomy, Colonoscopy Female Surgical History: Reports: Section Endocrine Surgical History: Reports: None Neurological Surgical History: Reports: Other (See Below) Other Neurological Surgeries/Procedures: back surgery for spinal stenosis Musculoskeletal Surgical History: Reports: Hip Replacement Social & Family History - Family History Family Medical History: Noncontributory - Tobacco Use Smoking Status *Q: Never Smoker - Caffeine Use Caffeine Use: Reports: Coffee Other Caffeine Use: 1 cup day - Living Situation & Occupation Living situation: Reports: , with Family (retired Home [employer] 20 years, [employer] 47 years to [place], 9 children, lives in [place], [place].) Occupation: Retired ED ROS GENERAL - Review of Systems Review Of Systems: See Below Constitutional: Reports: Chills, Malaise. Denies: Fever HEENT: Reports: No Symptoms Respiratory: Denies: Shortness of Breath Cardiovascular: Denies: Chest Pain GI/Abdominal: Reports: Abdominal Pain, Diarrhea (diarrhea is improving, being treated for C. difficile), Nausea, Vomiting : Reports: No Symptoms Skin: Reports: No Symptoms Neurological: Denies: Headache Psychiatric: Reports: No Symptoms ED EXAM, GI/ABD - Physical Exam Exam: See Below Exam Limited By: No Limitations General Appearance: Alert, No Apparent Distress (looks uncomfortable but not distressed) Eyes: Bilateral: Normal Appearance (no jaundice) Head: Atraumatic Respiratory/Chest: No Respiratory Distress, Lungs Clear Cardiovascular: Regular Rate, Rhythm GI/Abdominal Exam: Soft, Tender (tender over the epigastric area with mild guarding, some tenderness to palpation in the left and right upper quadrant as well) Neurological: Alert, Oriented Psychiatric: Normal Affect, Normal Mood Skin Exam: Warm, Dry Course - Vital Signs Last Recorded V/S: Last Vital Signs Temp 98.9 F 04/02/19 15:00 Pulse 63 04/02/19 15:00 Resp 18 04/02/19 15:00 BP 157/69 H 04/02/19 15:00 Pulse Ox 98 04/02/19 15:00 - Orders/Labs/Meds Orders: Medication Orders Acetaminophen (Tylenol) 650 mg PO Q4H PRN PRN Reason: Pain/Fever Albuterol (Proventil Neb Soln) 2.5 mg NEB Q4H PRN PRN Reason: Shortness Of Breath/wheezing Allopurinol (Zyloprim) 300 mg PO DAILY [facility] Last Admin: 04/02/19 08:26 Dose: 300 mg Ropivacaine 60 ml/Dexamethasone 8 mg/Epinephrine HCl 0.4 mg/ Sodium Chloride 17.6 ml 0 ml NERVRT ASDIRECTED [facility] Furosemide (Lasix) 40 mg PO DAILY [facility] Last Admin: 04/02/19 08:25 Dose: 40 mg Hydromorphone HCl (Dilaudid Materials Technician 15 Mg In Ns 30 Ml) 0 mg IV ASDIRECTED PRN; Protocol PRN Reason: Pain Last Admin: 04/01/19 23:26 Dose: 15 mg Cefoxitin Sodium 2 gm/ Sodium (Chloride) 50 mls @ 100 mls/hr IV ONCALL ONE Stop: 04/03/19 08:59 Lactobacillus Rhamnosus (Culturelle) 1 cap PO BID [facility] Last Admin: 04/02/19 08:26 Dose: 1 cap Levothyroxine Sodium (Levothyroxine) 25 mcg PO [id number] [facility] Last Admin: 04/02/19 08:25 Dose: 25 mcg Levothyroxine Sodium (Levothyroxine) 37.5 mcg PO [id number] [facility] Losartan Potassium (Cozaar) 100 mg PO DAILY [facility] Last Admin: 04/02/19 08:26 Dose: 100 mg Naloxone HCl (Narcan) 0.4 mg IVPUSH Q2M PRN PRN Reason: Respiratory Distress Ondansetron HCl (Zofran) 4 mg IV Q4H PRN PRN Reason: Nausea/Vomiting Oxycodone HCl (Oxycodone) 5 mg PO Q4H PRN PRN Reason: Pain (moderate 4-6) Last Admin: 04/02/19 14:00 Dose: 5 mg Pantoprazole Sodium (Protonix Iv) 40 mg IVPUSH DAILY [facility] Last Admin: 04/02/19 08:27 Dose: 40 mg Labs: Laboratory Tests 04/01/19 04/01/19 Range/Units 19:39 19:39 WBC 15.2 H (4.5-11.0) K/uL RBC 4.59 (3.30-5.50) M/uL Hgb 13.8 (12.0-15.0) g/dL Hct 42.0 (36.0-48.0) % MCV 92 (80-98) fL MCH 30 (27-31) pg MCHC 33 (32-36) % Plt Count 158 (150-400) K/uL Neut % (Auto) 80 H (36-66) % Lymph % (Auto) 10 L (24-44) % [place] % (Auto) 9 H (2-6) % Eos % (Auto) 1 L (2-4) % Baso % (Auto) 0 (0-1) % Sodium 141 (140-148) mmol/L Potassium 4.5 (3.6-5.2) mmol/L Chloride 103 (100-108) mmol/L Carbon Dioxide 28 (21-32) mmol/L Anion Gap 10.2 (5.0-14.0) mmol/L BUN 17 (7-18) mg/dL Creatinine 0.8 (0.6-1.0) mg/dL Est Cr Clr Drug Dosing 50.56 mL/min Estimated GFR (MDRD) > 60 (>60) Glucose 123 H (74-106) mg/dL Calcium 9.0 (8.5-10.1) mg/dL Total Bilirubin 1.0 (0.2-1.0) mg/dL AST 22 (15-37) U/L ALT 27 (12-78) U/L Alkaline Phosphatase 85 (46-116) U/L Total Protein 6.5 (6.4-8.2) g/dL Albumin 3.2 L (3.4-5.0) g/dL Globulin 3.3 (2.3-3.5) g/dL Albumin/Globulin Ratio 1.0 L (1.2-2.2) Amylase 53 D (25-115) U/L Lipase 216 (73-393) U/L Meds: Medications Generic Name Dose Route Start Last Admin Trade Name Freq PRN Reason Stop Dose Admin Acetaminophen 650 mg 04/02/19 10:55 Tylenol PO Q4H PRN Pain/Fever Albuterol 2.5 mg 04/01/19 23:14 Proventil Neb Soln NEB Q4H PRN Shortness Of Breath/wheezing Allopurinol 300 mg 04/02/19 09:00 04/02/19 08:26 Zyloprim PO 300 mg DAILY [facility] Administration Ropivacaine 60 ml/ 0 ml 04/03/19 08:30 Dexamethasone 8 mg/ NERVRT Epinephrine HCl 0.4 mg/ Sodium ASDIRECTED [facility] Chloride 17.6 ml Furosemide 40 mg 04/02/19 09:00 04/02/19 08:25 Lasix PO 40 mg DAILY [facility] Administration Hydromorphone HCl 0 mg 04/01/19 23:14 04/01/19 23:26 Dilaudid Materials Technician 15 Mg In Ns 30 Ml IV 15 mg ASDIRECTED PRN Administration Pain Protocol Cefoxitin Sodium 2 gm/ Sodium 50 mls @ 100 mls/hr 04/03/19 08:30 Chloride IV 04/03/19 08:59 ONCALL ONE Lactobacillus Rhamnosus 1 cap 04/02/19 09:00 04/02/19 08:26 Culturelle PO 1 cap BID [facility] Administration Levothyroxine Sodium 25 mcg 04/02/19 07:30 04/02/19 08:25 Levothyroxine PO 25 mcg MoWeFr@0730 [facility] Administration Levothyroxine Sodium 37.5 mcg 04/03/19 07:30 Levothyroxine PO [id number] [facility] Losartan Potassium 100 mg 04/02/19 09:00 04/02/19 08:26 Cozaar PO 100 mg DAILY [facility] Administration Naloxone HCl 0.4 mg 04/01/19 23:14 Narcan IVPUSH Q2M PRN Respiratory Distress Ondansetron HCl 4 mg 04/01/19 23:14 Zofran IV Q4H PRN Nausea/Vomiting Oxycodone HCl 5 mg 04/02/19 10:55 04/02/19 14:00 Oxycodone PO 5 mg Q4H PRN Administration Pain (moderate 4-6) Pantoprazole Sodium 40 mg 04/02/19 09:00 04/02/19 08:27 Protonix Iv IVPUSH 40 mg DAILY [facility] Administration Discontinued Medications Generic Name Dose Route Start Last Admin Trade Name [place] PRN Reason Stop Dose Admin Acetaminophen 1,000 mg 04/02/19 07:30 04/02/19 14:50 Tylenol Extra Strength PO 04/02/19 07:31 Not Given PREPRO ONE Fentanyl 50 mcg 04/01/19 19:24 04/01/19 19:59 Sublimaze IVPUSH 04/01/19 19:25 50 mcg ONETIME ONE Administration Fentanyl 50 mcg 04/01/19 21:42 04/01/19 21:49 Sublimaze IVPUSH 04/01/19 21:43 50 mcg ONETIME ONE Administration Lactated Ringer's 1,000 mls @ 1,000 mls/hr 04/01/19 19:30 04/01/19 20:58 Ringers, Lactated IV Infused ASDIRECTED [facility] Infusion Sodium Chloride 100 mls @ 3.5 mls/sec 04/01/19 20:33 04/01/19 20:45 Normal Saline IV 04/01/19 20:34 3.5 mls/sec ONETIME ONE Administration Lactated Ringer's 1,000 mls @ 125 mls/hr 04/01/19 23:14 04/02/19 07:19 Ringers, Lactated IV 125 mls/hr ASDIRECTED [facility]AY Administration Iopamidol 150 ml 04/01/19 20:45 04/01/19 20:45 Isovue-300 (61%) IV 150 ml . DIRECTED VIJAY Administration Sodium Chloride 10 ml 04/01/19 20:33 04/01/19 20:45 Saline Flush FLUSH 04/01/19 20:34 10 ml ONETIME ONE Administration - Re-Assessments/Exams Free Text/Narrative Re-Assessment/Exam: 04/01/19 20:18 An IV was started, the patient was hydrated with lactated Ringer's and given 50 g of IV fentanyl. This did help her pain. CBC, CMP, amylase and lipase were obtained which were all normal except for a white count of 15,000. Her records were reviewed including her normal appearing workup from one month ago. Her only positive finding on her last hospitalization was inflammatory changes around the pancreas on CT, I decided to repeat this with IV contrast today. This was ordered. 04/01/19 21:45 CT scan again showed inflammatory changes around the pancreatic head. It actually appears improved over previous levels. Her pain was consistent enough however needing another dose of IV fentanyl. I discussed her situation with the hospitalist service, it was recommended she be admitted for pain control and hydration tonight and further evaluation with a gallbladder ultrasound and discussion with surgery tomorrow. Patient was agreeable with this plan. Departure - Departure Time of Disposition: 23:11 Disposition: Admitted As Inpatient 64 Condition: Fair Clinical Impression: Pancreatitis, acute Qualifiers: Pancreatitis type: idiopathic Acute pancreatitis complication: no infection or necrosis Qualified Code(s): K85.00 - Idiopathic acute pancreatitis without necrosis or infection Abdominal pain Qualifiers: Abdominal location: upper abdomen, unspecified Qualified Code(s): R10.10 - Upper abdominal pain, unspecified - Discharge Information
[2019-04-01] MEDS ORDERED: Sodium Chloride 0.9% 10 ML Syringe FLUSH ONE (20:33)
[2019-04-01] MEDS ORDERED: Sodium Chloride 0.9% 100 ML IV ONE (20:33)
[2019-04-01] MEDS ORDERED: Iopamidol 612 MG/ML 150 ML Bottle IV SCH (20:45)
--- NOTE | 2019-04-01 21:28 | CRLCT ---
HISTORY: Upper abdominal pain. COMPARISON: 02/26/2018. FINDINGS: Mild interstitial thickening in the lung bases. The liver, spleen, adrenal glands and kidneys are within normal. Probable tiny renal cysts. Mild fat stranding and edema about the head of the pancreas which appears slightly edematous, appears improved from the previous study. No evidence for pseudocyst. No biliary dilation. The bowel is normal in caliber. No lymphadenopathy or ascites. Right hip arthroplasty. Degenerative changes in the spine. IMPRESSION: Changes of mild pancreatitis of the head of the pancreas appear improved. Please note that all CT scans at this facility use dose modulation, iterative reconstruction, and/or weight-based dosing when appropriate to reduce radiation dose to as low as reasonably achievable. Dictated by Eboni Mooney MD @ Apr 01 2019 9:23PM Signed by Dr. Eboni Mooney @ Apr 01 2019 9:28PM
--- NOTE | 2019-04-01 23:01 | PCM.HP ---
H&P History of Present Illness - General Date of Service: 04/01/19 Admit Problem/Dx: Admission Diagnosis/Problem Admission Diagnosis/Problem Abdominal pain Source of Information: Patient History Limitations: Reports: No Limitations - History of Present Illness Onset of Symptoms: Reports: Today, Gradual (intermittent abdominal since February) Location: Reports: Abdomen (epigastric radiates to right upper quadrant) Quality: Reports: Same as Previous Episode Severity: Severe (rates pain at 8 or 9) Improves with: Reports: None Worsens with: Reports: Eating Associated Symptoms: Reports: Fever/Chills (felt chills, no fever), Loss of Appetite (ate yogart and broth today, which caused abdominal pain, nausea and vomiting.), Nausea/Vomiting - Related Data Allergies/Adverse Reactions: Allergies Allergy/AdvReac Type Severity Reaction Status Date / Time lisinopril AdvReac Cough Verified 04/01/19 19:04 Home Medications: Home Meds Acetaminophen [Tylenol Arthritis] 650 mg PO TID PRN 03/27/18 [History] Allopurinol [Zyloprim] 300 mg PO DAILY 03/27/18 [History] Cholecalciferol (Vitamin D3) [D3 Dots] 2,000 unit PO DAILY 03/27/18 [History] Furosemide 40 mg PO DAILY 03/27/18 [History] Levothyroxine Sodium [Synthroid] 25 mcg PO ASDIRECTED 03/27/18 [History] Losartan Potassium [Cozaar] 100 mg PO DAILY 03/27/18 [History] Vale-3/DHA/Epa/Fish Oil [Vale-3 Fish Oil 1,000 MG Sfgl] 1 cap PO DAILY [History] Lactobacillus Rhamnosus GG [Culturelle] 1 cap PO BID #60 cap 03/02/19 [Rx] metroNIDAZOLE [Metronidazole] 1 tab PO DAILY 04/01/19 [History] Past Medical History HEENT History: Reports: None, Impaired Vision Cardiovascular History: Reports: High Cholesterol, Hypertension Gastrointestinal History: Reports: Pancreatitis [employer]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: , Spontaneous Musculoskeletal History: Reports: Arthritis, Back Pain, Chronic Neurological History: Reports: None Endocrine/Metabolic History: Reports: Hypothyroidism, Obesity/BMI 30+, Vitamin D Deficiency, Other (See Below) Other Endocrine/Metabolic History: para thyroid removed - Infectious Disease History Infectious Disease History: Reports: Chicken Pox, Measles - Past Surgical History Cardiovascular Surgical History: Reports: None GI Surgical History: Reports: Appendectomy, Colonoscopy Female Surgical History: Reports: Section Endocrine Surgical History: Reports: None Neurological Surgical History: Reports: Other (See Below) Other Neurological Surgeries/Procedures: back surgery for spinal stenosis Musculoskeletal Surgical History: Reports: Hip Replacement Social & Family History - Family History Family Medical History: Noncontributory - Tobacco Use Smoking Status *Q: Never Smoker - Caffeine Use Caffeine Use: Reports: Coffee Other Caffeine Use: 1 cup day - Living Situation & Occupation Living situation: Reports: , with Family (retired [employer] [address], [place] [employer] 47 years to Catrachita, 9 children, lives in [place], [place].) Occupation: Retired H&P Review of Systems - Review of Systems: Review Of Systems: See Below General: Reports: Chills, Malaise, Weight Gain (8 pound 7 ounce wt gain since 02/26/2019) HEENT: Reports: Glasses Pulmonary: Reports: No Symptoms Cardiovascular: Reports: No Symptoms, Edema (severe bilateral leg edema. has been evaluated by [facility] for this.) Gastrointestinal: Reports: Abdominal Pain, Decreased Appetite, Nausea, Vomiting , Other (recent C Diff. had 2 pills left. diarrhea has resolved. 2 soft formed stool today.) Genitourinary: Reports: No Symptoms Musculoskeletal: Reports: Other (arthritis in legs, generalized aches and pains in joints) Skin: Reports: Dryness, Bruising Psychiatric: Reports: No Symptoms Neurological: Reports: No Symptoms Hematologic/Lymphatic: Reports: No Symptoms Immunologic: Reports: No Symptoms Exam - Exam Exam: See Below - Vital Signs Vital Signs: Last Vital Signs Temp 37.4 C 04/01/19 18:56 Pulse 73 04/01/19 21:56 Resp 16 04/01/19 21:56 BP 182/84 H 04/01/19 21:56 Pulse Ox 92 L 04/01/19 21:56 Weight: 128.094 kg - Exam Quality Assessment: DVT Prophylaxis General: Alert, Oriented, 4 HEENT: PERRLA, Hearing Intact, Mucosa Moist & [place], Nares Patent, Normal Nasal Septum, Posterior Pharynx Clear, Conjunctiva Clear, EOMI, EACs Clear, TMs Clear Neck: Supple, Trachea Midline, 2 Lungs: Clear to Auscultation Cardiovascular: Regular Rate, Regular Rhythm GI/Abdominal Exam: Normal Bowel Sounds, Tender (epigastric radiates to right upper quadrant) (Female) Exam: Deferred Rectal (Female) Exam: Deferred Extremities: Slow Capillary Refill, Other (severe lymphedema from groin to toes. ) Skin: Warm, Dry, Intact Neurological: Strength Equal Bilateral Neuro Extensive - Mental Status: Alert, Oriented x3, Normal Mood/Affect Psychiatric: Alert, Normal Affect, Normal Mood - Patient Data Lab Results Last 24 hrs: Laboratory Results - last 24 hr 04/01/19 04/01/19 Range/Units 19:39 19:39 WBC 15.2 H (4.5-11.0) K/uL RBC 4.59 (3.30-5.50) M/uL Hgb 13.8 (12.0-15.0) g/dL Hct 42.0 (36.0-48.0) % MCV 92 (80-98) fL MCH 30 (27-31) pg MCHC 33 (32-36) % Plt Count 158 (150-400) K/uL Neut % (Auto) 80 H (36-66) % Lymph % (Auto) 10 L (24-44) % [place] % (Auto) 9 H (2-6) % Eos % (Auto) 1 L (2-4) % Baso % (Auto) 0 (0-1) % Sodium 141 (140-148) mmol/L Potassium 4.5 (3.6-5.2) mmol/L Chloride 103 (100-108) mmol/L Carbon Dioxide 28 (21-32) mmol/L Anion Gap 10.2 (5.0-14.0) mmol/L BUN 17 (7-18) mg/dL Creatinine 0.8 (0.6-1.0) mg/dL Est Cr Clr Drug Dosing 50.56 mL/min Estimated GFR (MDRD) > 60 (>60) Glucose 123 H (74-106) mg/dL Calcium 9.0 (8.5-10.1) mg/dL Total Bilirubin 1.0 (0.2-1.0) mg/dL AST 22 (15-37) U/L ALT 27 (12-78) U/L Alkaline Phosphatase 85 (46-116) U/L Total Protein 6.5 (6.4-8.2) g/dL Albumin 3.2 L (3.4-5.0) g/dL Globulin 3.3 (2.3-3.5) g/dL Albumin/Globulin Ratio 1.0 L (1.2-2.2) Amylase 53 D (25-115) U/L Lipase 216 (73-393) U/L Result Diagrams: 04/01/19 19:39 04/01/19 19:39 - Problem List (1) Abdominal pain SNOMED Code(s): 31421544 ICD Code: R10.9 - UNSPECIFIED ABDOMINAL PAIN Status: Acute Current Visit : Yes Qualifiers: Abdominal location: upper abdomen, unspecified Qualified Code(s): R10.10 - Upper abdominal pain, unspecified (2) Lymphedema of both lower extremities SNOMED Code(s): 51761469335677268 ICD Code: I89.0 - LYMPHEDEMA, NOT ELSEWHERE CLASSIFIED Status: Acute Priority: High Current Visit: Yes (3) Hypertension SNOMED Code(s): 73948779 ICD Code: I10 - ESSENTIAL (PRIMARY) HYPERTENSION Status: Chronic Priority : Medium Current Visit: No Qualifiers: Hypertension type: essential hypertension Qualified Code(s): I10 - Essential (primary) hypertension Problem List Initiated/Reviewed/Updated: Yes Orders Last 24hrs: Active Orders 24 hr Category Date Time Status Patient Status Manage Transfer [TRANSFER] Routine ADT 04/01/19 22:23 Ordered Lactated Ringers [Ringers, Lactated] 1,000 ml Med 04/01/19 19:30 Active IV ASDIRECTED Resuscitation Status Routine Resus Stat 04/01/19 22:24 Ordered Medication Orders Lactated Ringer's (Ringers, Lactated) 1,000 mls @ 1,000 mls/hr IV ASDIRECTED VIJAY Last Admin: 04/01/19 19:58 Dose: 1,000 mls/hr Assessment/Plan Comment:: ASSESSMENT / PLAN This lady arrived by EMS complaining of upper abdominal pain for 48 hours, today she was having nausea with dry heaves. She describes the pain as severe epigastric pain rates at 8 or 9 on scale of 10. One month ago was admitted to hospital for pancreatitis. She has intermittent abdominal pain since last admission. She had MRCP, gallbladder ultrasound, H. scan with last admission. ER evaluation; CBC WBC 15.2 chemistries. Lipase 216, Amylase 53. Abdomen pelvis CT show changes of mild pancreatitis of the head of the pancreas appear improved. We'll plan to admit to hospital for further care and evaluation. Abdominal Pain, history of pancreatitis -Nothing by mouth -IV fluids Lactated Ringers 125 mL per hour for hydration -Anti-medic therapy as needed -Dilaudid DRAPERY HANGER for pain control -abdominal U/S limited; gallbladder in am -Repeat lipase level in a.m., cbc Lymphedema of lower legs -SCD -referral to OT HTN -continue medication advise to notify nurses of any chest pain or other symptoms Maintenance issues -Orders home meds: hold -Nutrition: Nothing by mouth -Chavarria catheter not indicated at this time -DVT: SCD -PPI: IV Protonix 40mg once a day -consult Spiritual CODE STATUS: FULL CODE Admission status: Admit to [address] [place] [address] Admission justification. This patient will be admitted for inpatient services and is medically appropriate meeting medical necessity for inpatient admission as outlined in my documentation. I reasonably expect the patient will require inpatient services that span. Time over 2 midnights. I reasonably expect this patient to be discharged or transferred within 96 hours after admission to the critical access hospital. Disposition; home Primary care provider: Hospitalist: Dr. Sommers
[2019-04-01] MEDS ORDERED: Ondansetron 4 MG/2 ML SDV IV PRN (23:14)
[2019-04-01] MEDS ORDERED: Albuterol 0.083% 2.5 MG/3 ML Neb Soln NEB PRN (23:14)
[2019-04-01] MEDS ORDERED: Naloxone 0.4 MG/ML SDV IVPUSH PRN (23:14)
[2019-04-01] MEDS ORDERED: HYDROmorphone/Normal Saline 15 MG/30 ML PCA IV PRN (23:14)
[2019-04-01] MEDS ORDERED: Levothyroxine 25 MCG Tab PO SCH (23:14)
[2019-04-02] MEDS: Lactated Ringers 1,000 ML IV SCH (07:19)
[2019-04-02] MEDS ORDERED: Acetaminophen 500 MG Tab PO ONE (07:30)
--- NOTE | 2019-04-02 08:13 | CRLUS ---
INDICATION: ABD PAIN , GALLBLADDER HISTORY: Abdominal pain. COMPARISON: CT of the abdomen and pelvis 04/01/2019. Ultrasound of the abdomen 02/26/2019. CT of the abdomen and pelvis 02/26/2019. TECHNIQUE: Ultrasound of the abdomen limited. FINDINGS: No peripancreatic fluid collections or mass by ultrasound. No pancreatic duct dilation. The abdominal aorta is normal in caliber. There is no solid hepatic mass. No dilation of intrahepatic biliary radicals. No perihepatic ascites. The liver measures 15.6 cm in length. Echogenic foci in the gallbladder lumen are likely related to calculi. No secondary signs for cholecystitis. Cholesterol polyps are a less likely consideration. The right kidney measures 10.9 cm in length. No hydronephrosis or solid mass. Main portal vein is patent, with normal flow direction into the liver. Common bile duct measures up to 5 mm at the faheem hepatis. There is no abdominal ascites. IMPRESSION: 1. Cholelithiasis without evidence for cholecystitis. 2. No sonographic Guillen sign. 3. Normal caliber biliary tree. Dictated by Robi Grullon MD @ 04/02/2019 8:12:54 AM Dictated by: Robi Grullon MD @ 04/02/2019 08:12:59 (Electronically Signed)
[2019-04-02] MEDS: Furosemide 40 MG Tab PO SCH (08:25)
[2019-04-02] MEDS: Levothyroxine 25 MCG Tab PO SCH (08:25)
[2019-04-02] MEDS: Losartan 50 MG Tab PO SCH (08:26)
[2019-04-02] MEDS: Allopurinol 300 MG Tab PO SCH (08:26)
[2019-04-02] MEDS: Lactobacillus Rhamnosus GG (Probiotic) Cap PO SCH ×2 (08:26→21:46)
[2019-04-02] MEDS: Pantoprazole 40 MG Vial IVPUSH SCH (08:27)
[2019-04-02] MEDS ORDERED: Acetaminophen 325 MG Tab PO PRN (10:55)
--- NOTE | 2019-04-02 10:56 | PCM.PN ---
- General Info Date of Service: 04/02/19 Subjective Update: there were no acute events overnight following admission. She continues to report mild pain in the upper abdomen that radiates to the right shoulder blade and back area. She did not have any fevers overnight. No complaints of nausea today. Ultrasound of the right upper quadrant showed cholelithiasis and sludge but no acute cholecystitis. Lipase level has remained normal. Functional Status: Reports: Pain Controlled - Review of Systems General: Denies: Fever Gastrointestinal: Reports: Abdominal Pain - Patient Data Vitals - Most Recent: Last Vital Signs Temp 37.4 C 04/02/19 10:22 Pulse 61 04/02/19 10:22 Resp 16 04/02/19 10:22 BP 155/67 H 04/02/19 10:22 Pulse Ox 95 04/02/19 10:22 Weight - Most Recent: 129.274 kg I&O - Last 24 Hours: Intake & Output 04/01/19 04/02/19 04/02/19 22:59 06:59 14:59 Intake Total 779 Output Total 475 675 Balance 304 -675 Lab Results Last 24 Hours: Laboratory Results - last 24 hr 04/01/19 04/01/19 04/02/19 Range/Units 19:39 19:39 04:30 WBC 15.2 H 12.6 H (4.5-11.0) K/uL RBC 4.59 4.04 (3.30-5.50) M/uL Hgb 13.8 12.5 (12.0-15.0) g/dL Hct 42.0 36.7 (36.0-48.0) % MCV 92 91 (80-98) fL MCH 30 31 (27-31) pg MCHC 33 34 (32-36) % Plt Count 158 (150-400) K/uL Neut % (Auto) 80 H 76 H (36-66) % Lymph % (Auto) 10 L 14 L (24-44) % [place] % (Auto) 9 H 9 H (2-6) % Eos % (Auto) 1 L 1 L (2-4) % Baso % (Auto) 0 1 (0-1) % Sodium 141 (140-148) mmol/L Potassium 4.5 (3.6-5.2) mmol/L Chloride 103 (100-108) mmol/L Carbon Dioxide 28 (21-32) mmol/L Anion Gap 10.2 (5.0-14.0) mmol/L BUN 17 (7-18) mg/dL Creatinine 0.8 (0.6-1.0) mg/dL Est Cr Clr Drug Dosing 50.56 mL/min Estimated GFR (MDRD) > 60 (>60) Glucose 123 H (74-106) mg/dL Calcium 9.0 (8.5-10.1) mg/dL Total Bilirubin 1.0 (0.2-1.0) mg/dL AST 22 (15-37) U/L ALT 27 (12-78) U/L Alkaline Phosphatase 85 (46-116) U/L Total Protein 6.5 (6.4-8.2) g/dL Albumin 3.2 L (3.4-5.0) g/dL Globulin 3.3 (2.3-3.5) g/dL Albumin/Globulin Ratio 1.0 L (1.2-2.2) Amylase 53 D (25-115) U/L Lipase 216 (73-393) U/L 04/02/19 Range/Units 04:30 WBC (4.5-11.0) K/uL RBC (3.30-5.50) M/uL Hgb (12.0-15.0) g/dL Hct (36.0-48.0) % MCV (80-98) fL MCH (27-31) pg MCHC (32-36) % Plt Count (150-400) K/uL Neut % (Auto) (36-66) % Lymph % (Auto) (24-44) % [place] % (Auto) (2-6) % Eos % (Auto) (2-4) % Baso % (Auto) (0-1) % Sodium 140 (140-148) mmol/L Potassium 4.3 (3.6-5.2) mmol/L Chloride 104 (100-108) mmol/L Carbon Dioxide 25 (21-32) mmol/L Anion Gap 10.8 (5.0-14.0) mmol/L BUN 13 (7-18) mg/dL Creatinine 0.6 (0.6-1.0) mg/dL Est Cr Clr Drug Dosing 67.42 mL/min Estimated GFR (MDRD) > 60 (>60) Glucose 110 H (74-106) mg/dL Calcium 8.6 (8.5-10.1) mg/dL Total Bilirubin (0.2-1.0) mg/dL AST (15-37) U/L ALT (12-78) U/L Alkaline Phosphatase (46-116) U/L Total Protein (6.4-8.2) g/dL Albumin (3.4-5.0) g/dL Globulin (2.3-3.5) g/dL Albumin/Globulin Ratio (1.2-2.2) Amylase (25-115) U/L Lipase 111 (73-393) U/L Med Orders - Current: Current Medications Albuterol (Proventil Neb Soln) 2.5 mg NEB Q4H PRN PRN Reason: Shortness Of Breath/wheezing Allopurinol (Zyloprim) 300 mg PO DAILY [facility] Last Admin: 04/02/19 08:26 Dose: 300 mg Furosemide (Lasix) 40 mg PO DAILY [facility] Last Admin: 04/02/19 08:25 Dose: 40 mg Hydromorphone HCl (Dilaudid Care Services Manager 15 Mg In Ns 30 Ml) 0 mg IV ASDIRECTED PRN; Protocol PRN Reason: Pain Last Admin: 04/01/19 23:26 Dose: 15 mg Lactobacillus Rhamnosus (Culturelle) 1 cap PO BID [facility] Last Admin: 04/02/19 08:26 Dose: 1 cap Levothyroxine Sodium (Levothyroxine) 25 mcg PO MoWeFr@0730 [facility] Last Admin: 04/02/19 08:25 Dose: 25 mcg Levothyroxine Sodium (Levothyroxine) 37.5 mcg PO SuTuThSa@0730 [facility] Losartan Potassium (Cozaar) 100 mg PO DAILY [facility] Last Admin: 04/02/19 08:26 Dose: 100 mg Naloxone HCl (Narcan) 0.4 mg IVPUSH Q2M PRN PRN Reason: Respiratory Distress Ondansetron HCl (Zofran) 4 mg IV Q4H PRN PRN Reason: Nausea/Vomiting Pantoprazole Sodium (Protonix Iv) 40 mg IVPUSH DAILY [facility] Last Admin: 04/02/19 08:27 Dose: 40 mg Discontinued Medications Fentanyl (Sublimaze) 50 mcg IVPUSH ONETIME ONE Stop: 04/01/19 19:25 Last Admin: 04/01/19 19:59 Dose: 50 mcg Fentanyl (Sublimaze) 50 mcg IVPUSH ONETIME ONE Stop: 04/01/19 21:43 Last Admin: 04/01/19 21:49 Dose: 50 mcg Lactated Ringer's (Ringers, Lactated) 1,000 mls @ 1,000 mls/hr IV ASDIRECTED [facility] Last Infusion: 04/01/19 20:58 Dose: Infused Sodium Chloride (Normal Saline) 100 mls @ 3.5 mls/sec IV ONETIME ONE Stop: 04/01/19 20:34 Last Admin: 04/01/19 20:45 Dose: 3.5 mls/sec Lactated Ringer's (Ringers, Lactated) 1,000 mls @ 125 mls/hr IV ASDIRECTED [facility] Last Admin: 04/02/19 07:19 Dose: 125 mls/hr Iopamidol (Isovue-300 (61%)) 150 ml IV . DIRECTED [facility] Last Admin: 04/01/19 20:45 Dose: 150 ml Sodium Chloride (Saline Flush) 10 ml FLUSH ONETIME ONE Stop: 04/01/19 20:34 Last Admin: 04/01/19 20:45 Dose: 10 ml - Exam Quality Assessment: No: Supplemental Oxygen General: Alert, Oriented, Cooperative, No Acute Distress Lungs: Normal Respiratory Effort GI/Abdominal Exam: Soft, No Distention Skin: Warm, Dry Psy/Mental Status: Alert, Normal Affect - Problem List Review Problem List Initiated/Reviewed/Updated: Yes - My Orders Last 24 Hours: My Active Orders 04/02/19 10:54 Notify Provider Consults [RC] ASDIRECTED Consult to Physician [CONS] Routine 04/02/19 10:55 Acetaminophen [Tylenol] 650 mg PO Q4H PRN oxyCODONE 5 mg PO Q4H PRN 04/02/19 Dinner NPO After Midnight [Nothing per Oral After Midnight Diet] [DIET] 04/02/19 Lunch Clear Liquid Diet [DIET] 04/03/19 05:00 CBC W/O DIFF,HEMOGRAM [HEME] Timed (1) COMPREHENSIVE METABOLIC PN,CMP [CHEM] Timed - Plan Plan:: ASSESSMENT / PLAN Biliary colic - suspected source for recurrent and somewhat persistent pain. She does have cholelithiasis as well as sludge. No other obvious explanation for her pain. Lipase level is normal. Hepatic enzymes were normal yesterday. CT scan showed only very mild swelling of the head of the pancreas. -clear liquids -saline lock IV -pain control -repeat labs in the morning -Surgical consultation to consider cholecystectomy Lymphedema of lower legs - chronic and stable -SCD -referral to OT HTN -continue medication Maintenance issues -Nutrition: clear liquids today, nothing by mouth after midnight -Chavarria catheter not indicated at this time -DVT: SCD -PPI: IV Protonix 40mg once a day -consult Spiritual Disposition - I would anticipate discharge home after the hospital stay Jamison Ibanez M.D.
[2019-04-02] MEDS: oxyCODONE 5 MG Tab PO PRN ×2 (14:00→21:46)
[2019-04-03] MEDS ORDERED: Potassium Chloride 20 MEQ in Premix Bag 1 BAG IV ONE (06:43)
[2019-04-03] MEDS ORDERED: Bupivacaine 0.5%/EPINEPHrine 1:200,000 50 ML MDV ONE (06:58)
[2019-04-03] MEDS ORDERED: fentaNYL 250 MCG/5 ML SDV ONE (07:12)
[2019-04-03] MEDS ORDERED: Dexamethasone 4 MG/ML SDV ONE (07:12)
[2019-04-03] MEDS ORDERED: Succinylcholine 200 MG/10 ML MDV ONE (07:12)
[2019-04-03] MEDS ORDERED: Neostigmine Methylsulfate 1 MG/ML 5 ML Syringe ONE (07:12)
[2019-04-03] MEDS ORDERED: Ondansetron 4 MG/2 ML SDV ONE (07:12)
[2019-04-03] MEDS ORDERED: Rocuronium 50 MG/5 ML Vial ONE (07:12)
[2019-04-03] MEDS ORDERED: Propofol 200 MG/20 ML SDV ONE (07:12)
[2019-04-03] MEDS ORDERED: Glycopyrrolate 0.2 MG/ML 5 ML MDV ONE (07:12)
[2019-04-03] MEDS ORDERED: Levothyroxine 25 MCG Tab PO SCH (07:30)
--- NOTE | 2019-04-03 07:34 | PCM.PN ---
- General Info Date of Service: 04/03/19 Admission Dx/Problem (Free Text): Jordana Hood is a 68 year old female who was admitted to the hospital on 04/01/19 for abdominal pain. She will be having a cholecystectomy today, 04/03/2019, by Redd White MD for probable subacute cholecystitis. She reports last night was good and her pain was well controlled. She denies any current abdominal pain. Functional Status: Reports: Pain Controlled - Review of Systems General: Reports: No Symptoms HEENT: Reports: No Symptoms Pulmonary: Reports: No Symptoms Cardiovascular: Reports: No Symptoms Gastrointestinal: Reports: Other (mild abdominal pain last evening, but denies pain during the night) Genitourinary: Reports: No Symptoms Musculoskeletal: Reports: No Symptoms Skin: Reports: No Symptoms Neurological: Reports: No Symptoms Psychiatric: Reports: No Symptoms - Patient Data Vitals - Most Recent: Last Vital Signs Temp 36.6 C 04/03/19 03:00 Pulse 71 04/03/19 03:00 Resp 16 04/03/19 03:00 BP 141/63 H 04/03/19 03:00 Pulse Ox 91 L 04/03/19 03:00 Weight - Most Recent: 129.274 kg I&O - Last 24 Hours: Intake & Output 04/02/19 04/03/19 04/03/19 22:59 06:59 14:59 Intake Total 480 237 Output Total 350 800 Balance 130 -563 Lab Results Last 24 Hours: Laboratory Results - last 24 hr 04/03/19 04/03/19 Range/Units 06:07 06:07 WBC 9.9 (4.5-11.0) K/uL RBC 4.14 (3.30-5.50) M/uL Hgb 12.5 (12.0-15.0) g/dL Hct 38.5 (36.0-48.0) % MCV 93 (80-98) fL MCH 30 (27-31) pg MCHC 33 (32-36) % Plt Count 137 L (150-400) K/uL Sodium 140 (140-148) mmol/L Potassium 3.3 L (3.6-5.2) mmol/L Chloride 103 (100-108) mmol/L Carbon Dioxide 28 (21-32) mmol/L Anion Gap 12.3 (5.0-14.0) mmol/L BUN 8 (7-18) mg/dL Creatinine 0.7 (0.6-1.0) mg/dL Est Cr Clr Drug Dosing 57.56 mL/min Estimated GFR (MDRD) > 60 (>60) Glucose 94 (74-106) mg/dL Calcium 8.6 (8.5-10.1) mg/dL Total Bilirubin 1.2 H (0.2-1.0) mg/dL AST 16 (15-37) U/L ALT 19 (12-78) U/L Alkaline Phosphatase 67 (46-116) U/L Total Protein 5.8 L (6.4-8.2) g/dL Albumin 2.6 L (3.4-5.0) g/dL Globulin 3.2 (2.3-3.5) g/dL Albumin/Globulin Ratio 0.8 L (1.2-2.2) Med Orders - Current: Current Medications Acetaminophen (Tylenol) 650 mg PO Q4H PRN PRN Reason: Pain/Fever Albuterol (Proventil Neb Soln) 2.5 mg NEB Q4H PRN PRN Reason: Shortness Of Breath/wheezing Allopurinol (Zyloprim) 300 mg PO DAILY [facility] Last Admin: 04/02/19 08:26 Dose: 300 mg Ropivacaine 60 ml/Dexamethasone 8 mg/Epinephrine HCl 0.4 mg/ Sodium Chloride 17.6 ml 0 ml NERVRT ASDIRECTED [facility] Furosemide (Lasix) 40 mg PO DAILY [facility] Last Admin: 04/02/19 08:25 Dose: 40 mg Hydromorphone HCl (Dilaudid Lathe Set Up Person 15 Mg In Ns 30 Ml) 0 mg IV ASDIRECTED PRN; Protocol PRN Reason: Pain Last Admin: 04/01/19 23:26 Dose: 15 mg Cefoxitin Sodium 2 gm/ Sodium (Chloride) 50 mls @ 100 mls/hr IV ONCALL ONE Stop: 04/03/19 08:59 Potassium Chloride 20 meq/Lidocaine HCl 2 ml/ Sodium Chloride 112 mls @ 56 mls/ hr IV ONETIME ONE Stop: 04/03/19 09:44 Lactobacillus Rhamnosus (Culturelle) 1 cap PO BID [facility] Last Admin: 04/02/19 21:46 Dose: 1 cap Levothyroxine Sodium (Levothyroxine) 25 mcg PO MoWeFr@0730 [facility] Last Admin: 04/02/19 08:25 Dose: 25 mcg Levothyroxine Sodium (Levothyroxine) 37.5 mcg PO SuTuThSa@0730 [facility] Losartan Potassium (Cozaar) 100 mg PO DAILY [facility] Last Admin: 04/02/19 08:26 Dose: 100 mg Naloxone HCl (Narcan) 0.4 mg IVPUSH Q2M PRN PRN Reason: Respiratory Distress Ondansetron HCl (Zofran) 4 mg IV Q4H PRN PRN Reason: Nausea/Vomiting Oxycodone HCl (Oxycodone) 5 mg PO Q4H PRN PRN Reason: Pain (moderate 4-6) Last Admin: 04/02/19 21:46 Dose: 5 mg Pantoprazole Sodium (Protonix Iv) 40 mg IVPUSH DAILY [facility] Last Admin: 04/02/19 08:27 Dose: 40 mg Discontinued Medications Acetaminophen (Tylenol Extra Strength) 1,000 mg PO PREPRO ONE Stop: 04/02/19 07:31 Last Admin: 04/02/19 14:50 Dose: Not Given Bupivacaine HCl/Epinephrine Bitart (Marcaine 0.5%/Epinephrine 1:200,000) Confirm Administered Dose 50 ml .ROUTE .STK-MED ONE Stop: 04/03/19 06:59 Dexamethasone (Dexamethasone) Confirm Administered Dose 4 mg .ROUTE .STK-MED ONE Stop: 04/03/19 07:13 Fentanyl (Sublimaze) 50 mcg IVPUSH ONETIME ONE Stop: 04/01/19 19:25 Last Admin: 04/01/19 19:59 Dose: 50 mcg Fentanyl (Sublimaze) 50 mcg IVPUSH ONETIME ONE Stop: 04/01/19 21:43 Last Admin: 04/01/19 21:49 Dose: 50 mcg Fentanyl (Sublimaze) Confirm Administered Dose 250 mcg .ROUTE .STK-MED ONE Stop: 04/03/19 07:13 Glycopyrrolate (Robinul) Confirm Administered Dose 1 mg .ROUTE .STK-MED ONE Stop: 04/03/19 07:13 Lactated Ringer's (Ringers, Lactated) 1,000 mls @ 1,000 mls/hr IV ASDIRECTED [facility] Last Infusion: 04/01/19 20:58 Dose: Infused Sodium Chloride (Normal Saline) 100 mls @ 3.5 mls/sec IV ONETIME ONE Stop: 04/01/19 20:34 Last Admin: 04/01/19 20:45 Dose: 3.5 mls/sec Lactated Ringer's (Ringers, Lactated) 1,000 mls @ 125 mls/hr IV ASDIRECTED [facility] Last Admin: 04/02/19 07:19 Dose: 125 mls/hr Iopamidol (Isovue-300 (61%)) 150 ml IV . DIRECTED [facility] Last Admin: 04/01/19 20:45 Dose: 150 ml Neostigmine Methylsulfate (Neostigmine) Confirm Administered Dose 5 mg .ROUTE .STK-MED ONE Stop: 04/03/19 07:13 Ondansetron HCl (Zofran) Confirm Administered Dose 4 mg .ROUTE .STK-MED ONE Stop: 04/03/19 07:13 Propofol (Diprivan 20 Ml) Confirm Administered Dose 200 mg .ROUTE .STK-MED ONE Stop: 04/03/19 07:13 Rocuronium [place] (Zemuron) Confirm Administered Dose 50 mg .ROUTE .STK-MED ONE Stop: 04/03/19 07:13 Sodium Chloride (Saline Flush) 10 ml FLUSH ONETIME ONE Stop: 04/01/19 20:34 Last Admin: 04/01/19 20:45 Dose: 10 ml Succinylcholine Chloride (Quelicin) Confirm Administered Dose 200 mg .ROUTE .STK -MED ONE Stop: 04/03/19 07:13 - Exam General: Alert, Oriented Neck: Supple Lungs: Clear to Auscultation, Normal Respiratory Effort Cardiovascular: Regular Rate, Regular Rhythm GI/Abdominal Exam: Normal Bowel Sounds Skin: Warm, Dry, Intact Neurological: No New Focal Deficit Psy/Mental Status: Alert, Normal Affect - Problem List Review Problem List Initiated/Reviewed/Updated: Yes - Assessment Assessment:: 1. Subacute cholecystis with cholelithiasis 2. Laparoscopic cholecystectomy on 04/03/2019 by surgeon, Redd White MD 3. Hypokalemia - Plan Plan:: 1. Continue current orders 2. Administer Potassium Chloride, 20 milliequivalents now 3. Will recheck as needed 2. Laparoscopic cholecystectomy on 04/03/2019 by surgeon, Redd White MD
[2019-04-03] MEDS: Allopurinol 300 MG Tab PO SCH ×2 (07:43→09:21)
[2019-04-03] MEDS: Losartan 50 MG Tab PO SCH ×2 (07:43→09:21)
[2019-04-03] MEDS ORDERED: Potassium Chloride 20 MEQ, Lidocaine 1% 2 ML in Sodium Chloride 0.9% 100 ML IV ONE (07:45)
[2019-04-03] MEDS ORDERED: Acetaminophen 500 MG Tab PO ONE (08:15)
[2019-04-03] MEDS ORDERED: Ropivacaine 60 ML, Dexamethasone 8 MG, EPINEPHrine 0.4 MG, Sodium Chloride 0.9% 17.6 ML NERVRT SCH ×4 (08:30)
[2019-04-03] MEDS: cefOXitin 2 GM in Sodium Chloride 0.9% 50 ML IV ONE ×2 (08:59→11:57)
[2019-04-03] MEDS ORDERED: Lactated Ringers 1,000 ML ONE (09:32)
[2019-04-03] MEDS ORDERED: Albuterol 0.083% 2.5 MG/3 ML Neb Soln NEB PRN (11:52)
[2019-04-03] MEDS: Dextrose 5%-Lactated Ringers 1,000 ML IV SCH ×2 (11:56→23:09)
[2019-04-03] MEDS ORDERED: HYDROmorphone 1 MG/ML Syringe IV PRN (12:58)
[2019-04-03] MEDS ORDERED: HYDROmorphone 0.5 MG/0.5 ML Syringe IVPUSH PRN (12:58)
[2019-04-03] MEDS: Furosemide 40 MG Tab PO SCH (13:10)
[2019-04-03] MEDS: Pantoprazole 40 MG Vial IVPUSH SCH (13:10)
[2019-04-03] MEDS: Lactobacillus Rhamnosus GG (Probiotic) Cap PO SCH ×2 (14:07→20:49)
--- NOTE | 2019-04-03 14:27 | PCM.PN ---
- General Info Date of Service: 04/03/19 Subjective Update: There were no acute events overnight. She is now status post laparoscopic cholecystectomy and drainage of pericholecystic fluid as well as an incarcerated incisional hernia repair. Pain is well-controlled at this time. She did not have any fevers overnight. No nausea or vomiting. No shortness of breath. Functional Status: Reports: Pain Controlled - Patient Data Vitals - Most Recent: Last Vital Signs Temp 35.9 C 04/03/19 13:30 Pulse 60 04/03/19 13:30 Resp 18 04/03/19 13:30 BP 153/75 H 04/03/19 13:30 Pulse Ox 93 L 04/03/19 14:12 Weight - Most Recent: 129.274 kg I&O - Last 24 Hours: Intake & Output 04/02/19 04/03/19 04/03/19 22:59 06:59 14:59 Intake Total 480 237 550 Output Total 350 800 800 Balance 130 -563 -250 Lab Results Last 24 Hours: Laboratory Results - last 24 hr 04/03/19 04/03/19 Range/Units 06:07 06:07 WBC 9.9 (4.5-11.0) K/uL RBC 4.14 (3.30-5.50) M/uL Hgb 12.5 (12.0-15.0) g/dL Hct 38.5 (36.0-48.0) % MCV 93 (80-98) fL MCH 30 (27-31) pg MCHC 33 (32-36) % Plt Count 137 L (150-400) K/uL Sodium 140 (140-148) mmol/L Potassium 3.3 L (3.6-5.2) mmol/L Chloride 103 (100-108) mmol/L Carbon Dioxide 28 (21-32) mmol/L Anion Gap 12.3 (5.0-14.0) mmol/L BUN 8 (7-18) mg/dL Creatinine 0.7 (0.6-1.0) mg/dL Est Cr Clr Drug Dosing 57.56 mL/min Estimated GFR (MDRD) > 60 (>60) Glucose 94 (74-106) mg/dL Calcium 8.6 (8.5-10.1) mg/dL Total Bilirubin 1.2 H (0.2-1.0) mg/dL AST 16 (15-37) U/L ALT 19 (12-78) U/L Alkaline Phosphatase 67 (46-116) U/L Total Protein 5.8 L (6.4-8.2) g/dL Albumin 2.6 L (3.4-5.0) g/dL Globulin 3.2 (2.3-3.5) g/dL Albumin/Globulin Ratio 0.8 L (1.2-2.2) Jono Results Last 24 Hours: Microbiology 04/03/19 10:53 Gram Stain - Final Gallbladder Med Orders - Current: Current Medications Albuterol (Proventil Neb Soln) 2.5 mg NEB QIDRT VIJAY Albuterol (Proventil Neb Soln) 2.5 mg NEB ASDIRECTED PRN PRN Reason: Shortness of Breath Allopurinol (Zyloprim) 300 mg PO DAILY [facility] Last Admin: 04/03/19 09:21 Dose: Not Given Furosemide (Lasix) 40 mg PO DAILY [facility] Last Admin: 04/03/19 13:10 Dose: 40 mg Hydromorphone HCl (Dilaudid Cloud Administrator 15 Mg In Ns 30 Ml) 0 mg IV ASDIRECTED PRN; Protocol PRN Reason: Pain Last Admin: 04/01/19 23:26 Dose: 15 mg Hydromorphone HCl (Dilaudid) 0.5 mg IVPUSH Q2H PRN PRN Reason: MODERATE PAIN Hydromorphone HCl (Dilaudid) 1 mg IV Q2H PRN PRN Reason: SEVERE PAIN Dextrose/Lactated Ringer's (Dextrose 5%-Lactated Ringers) 1,000 mls @ 100 mls/ hr IV ASDIRECTED [facility] Last Admin: 04/03/19 11:56 Dose: 100 mls/hr Cefoxitin Sodium 2 gm/ Sodium (Chloride) 50 mls @ 100 mls/hr IV Q6H [facility] Lactobacillus Rhamnosus (Culturelle) 1 cap PO BID [facility] Levothyroxine Sodium (Levothyroxine) 25 mcg PO [email or web address] [facility] Last Admin: 04/02/19 08:25 Dose: 25 mcg Levothyroxine Sodium (Levothyroxine) 37.5 mcg PO [email or web address] [facility] Last Admin: 04/03/19 13:09 Dose: 37.5 mcg Losartan Potassium (Cozaar) 100 mg PO DAILY [facility] Last Admin: 04/03/19 09:21 Dose: Not Given Naloxone HCl (Narcan) 0.4 mg IVPUSH Q2M PRN PRN Reason: Respiratory Distress Ondansetron HCl (Zofran) 4 mg IV Q4H PRN PRN Reason: Nausea/Vomiting Oxycodone/Acetaminophen (Percocet 325-5 Mg) 1 tab PO Q3H PRN PRN Reason: PAIN Pantoprazole Sodium (Protonix Iv) 40 mg IVPUSH DAILY [facility] Last Admin: 04/03/19 13:10 Dose: 40 mg Discontinued Medications Acetaminophen (Tylenol) 650 mg PO Q4H PRN PRN Reason: Pain/Fever Acetaminophen (Tylenol Extra Strength) 1,000 mg PO PREPRO ONE Stop: 04/02/19 07:31 Last Admin: 04/02/19 14:50 Dose: Not Given Acetaminophen (Tylenol Extra Strength) 1,000 mg PO PREPRO ONE Stop: 04/03/19 08:16 Last Admin: 04/03/19 08:15 Dose: 1,000 mg Albuterol (Proventil Neb Soln) 2.5 mg NEB Q4H PRN PRN Reason: Shortness Of Breath/wheezing Bupivacaine HCl/Epinephrine Bitart (Marcaine 0.5%/Epinephrine 1:200,000) Confirm Administered Dose 50 ml .ROUTE .STK-MED ONE Stop: 04/03/19 06:59 Last Admin: 04/03/19 10:56 Dose: 20 ml Ropivacaine 60 ml/Dexamethasone 8 mg/Epinephrine HCl 0.4 mg/ Sodium Chloride 17.6 ml 0 ml NERVRT ASDIRECTED [facility] Last Admin: 04/03/19 09:00 Dose: 80 syringe Dexamethasone (Dexamethasone) Confirm Administered Dose 4 mg .ROUTE .STK-MED ONE Stop: 04/03/19 07:13 Fentanyl (Sublimaze) 50 mcg IVPUSH ONETIME ONE Stop: 04/01/19 19:25 Last Admin: 04/01/19 19:59 Dose: 50 mcg Fentanyl (Sublimaze) 50 mcg IVPUSH ONETIME ONE Stop: 04/01/19 21:43 Last Admin: 04/01/19 21:49 Dose: 50 mcg Fentanyl (Sublimaze) Confirm Administered Dose 250 mcg .ROUTE .STK-MED ONE Stop: 04/03/19 07:13 Glycopyrrolate (Robinul) Confirm Administered Dose 1 mg [facility] ONE Stop: 04/03/19 07:13 Lactated Ringer's (Ringers, Lactated) 1,000 mls @ 1,000 mls/hr IV ASDIRECTED [facility] Last Infusion: 04/01/19 20:58 Dose: Infused Sodium Chloride (Normal Saline) 100 mls @ 3.5 mls/sec IV ONETIME ONE Stop: 04/01/19 20:34 Last Admin: 04/01/19 20:45 Dose: 3.5 mls/sec Lactated Ringer's (Ringers, Lactated) 1,000 mls @ 125 mls/hr IV ASDIRECTED [facility] Last Admin: 04/02/19 07:19 Dose: 125 mls/hr Cefoxitin Sodium 2 gm/ Sodium (Chloride) 50 mls @ 100 mls/hr IV ONCALL ONE Stop: 04/03/19 08:59 Last Admin: 04/03/19 11:57 Dose: Not Given Potassium Chloride 20 meq/Lidocaine HCl 2 ml/ Sodium Chloride 112 mls @ 56 mls/ hr IV ONETIME ONE Stop: 04/03/19 09:44 Last Admin: 04/03/19 08:04 Dose: 56 mls/hr Lactated Ringer's (Ringers, Lactated) Confirm Administered Dose 1,000 mls @ as directed .ROUTE .[facility] ONE Stop: 04/03/19 09:33 Iopamidol (Isovue-300 (61%)) 150 ml IV . DIRECTED [facility] Last Admin: 04/01/19 20:45 Dose: 150 ml Lactobacillus Rhamnosus (Culturelle) 1 cap PO BID [facility] Last Admin: 04/03/19 14:07 Dose: Not Given Neostigmine Methylsulfate (Neostigmine) Confirm Administered Dose 5 mg .[facility]TE [facility] ONE Stop: 04/03/19 07:13 Ondansetron HCl (Zofran) Confirm Administered Dose 4 mg .[facility] ONE Stop: 04/03/19 07:13 Oxycodone HCl (Oxycodone) 5 mg PO Q4H PRN PRN Reason: Pain (moderate 4-6) Last Admin: 04/02/19 21:46 Dose: 5 mg Propofol (Diprivan 20 Ml) Confirm Administered Dose 200 mg .ROUTE .STK-MED ONE Stop: 04/03/19 07:13 Rocuronium [place] (Zemuron) Confirm Administered Dose 50 mg .ROUTE .STK-MED ONE Stop: 04/03/19 07:13 Sodium Chloride (Saline Flush) 10 ml FLUSH ONETIME ONE Stop: 04/01/19 20:34 Last Admin: 04/01/19 20:45 Dose: 10 ml Succinylcholine Chloride (Quelicin) Confirm Administered Dose 200 mg .ROUTE .STK -MED ONE Stop: 04/03/19 07:13 - Exam Quality Assessment: No: Supplemental Oxygen General: Alert, Oriented, Cooperative, No Acute Distress Lungs: Normal Respiratory Effort GI/Abdominal Exam: Soft, No Distention Psy/Mental Status: Alert, Normal Affect - Problem List Review Problem List Initiated/Reviewed/Updated: Yes - My Orders Last 24 Hours: My Active Orders 04/03/19 21:00 Lactobacillus Rhamnosus GG [Culturelle] 1 cap PO BID - Plan Plan:: ASSESSMENT AND PLAN - Subacute cholecystitis - status post laparoscopic cholecystectomy. There was some pericholecystic fluid that was drained. Pain well-controlled. Vital signs stable. -saline lock IV -pain control -repeat labs in the morning -Surgical consultation appreciated Lymphedema of lower legs - chronic and stable -SCD -referral to OT HTN -continue medication Maintenance issues -Nutrition - advance diet as tolerated -Chavarria catheter - not indicated at this time -DVT: SCD -GI - PPI -consult Spiritual Disposition - I would anticipate discharge home after the hospital stay Jamison Ibanez M.D.
[2019-04-03] MEDS: Albuterol 0.083% 2.5 MG/3 ML Neb Soln NEB SCH ×2 (14:44→20:50)
[2019-04-03] MEDS: cefOXitin 2 GM in Sodium Chloride 0.9% 50 ML IV SCH ×2 (15:45→20:52)
[2019-04-03] MEDS: Acetaminophen/oxyCODONE 325-5 MG Tab PO PRN (20:50)
[2019-04-04] MEDS: Acetaminophen/oxyCODONE 325-5 MG Tab PO PRN ×2 (01:02→09:51)
[2019-04-04] MEDS: cefOXitin 2 GM in Sodium Chloride 0.9% 50 ML IV SCH ×2 (03:56→08:34)
[2019-04-04] MEDS: Albuterol 0.083% 2.5 MG/3 ML Neb Soln NEB SCH ×2 (07:11→10:54)
[2019-04-04] MEDS: Levothyroxine 25 MCG Tab PO SCH (07:41)
[2019-04-04] MEDS: Furosemide 40 MG Tab PO SCH (08:23)
[2019-04-04] MEDS: Pantoprazole 40 MG Vial IVPUSH SCH (08:24)
[2019-04-04] MEDS: Allopurinol 300 MG Tab PO SCH (08:24)
[2019-04-04] MEDS: Losartan 50 MG Tab PO SCH (08:24)
[2019-04-04] MEDS: Lactobacillus Rhamnosus GG (Probiotic) Cap PO SCH (08:24)
[2019-04-05] MEDS ORDERED: Pantoprazole 40 MG Tab.CR PO SCH (07:30)
--- NOTE | 2019-04-05 07:51 | DISCH ---
ADMISSION DIAGNOSES: 1. Acute pancreatitis. 2. Hypothyroidism. 3. Lymphedema of both lower extremities. 4. Hypertension. 5. Peripheral artery disease. 6. Fibromyalgia. DISCHARGE DIAGNOSES: Diagnostic laparoscopy with cholecystectomy, drainage of pericholecystic abscess, and repair of incarcerated incisional hernia for subacute/chronic cholecystitis and cholelithiasis, incarcerated incisional hernia and pericholecystic abscess (infected versus sterile). Date of surgery: 04/03/2019. Surgeon: eRdd White MD. HISTORY: Jordana Hood is a 68-year-old female who was admitted on 04/01/2019, after being evaluated in the emergency room. She was diagnosed with pancreatitis, and ultrasound was done and showed cholelithiasis and sludge but no acute cholecystitis. On 04/03/2019, after preoperative evaluation and discussion of possible risks and possible complications, she wished to proceed with above surgical procedure. On 04/03/2019, Jordana had her diagnostic laparoscopy with cholecystectomy. She had no operative complications. On postoperative day #1, her vital signs were stable. Activity was good. Pain was well managed. She was able to be discharged to home. PHYSICAL EXAMINATION: GENERAL: Jordana Hood is a 68-year-old female. VITAL SIGNS: Height is 5 feet 1.42 inches, weight is 285 pounds, BMI is 53. TPR is 96.5, 70, 18, blood pressure 163/74. HEENT: Negative. NECK: Supple. HEART: Regular rate and rhythm. LUNGS: Clear. ABDOMEN: Dressings are dry and intact. 4x4 over MARTÍN drain site. Abdominal binder has been on. Trocar incisions, sutures intact. EXTREMITIES: Trace peripheral edema. DISPOSITION: Discharged to home. CONDITION: Stable and improving. FOLLOWUP APPOINTMENT: Carol Gonzales PA-C, on 04/12/2019 at 10 a.m. HOME MEDICATIONS: 1. Percocet 5/325 mg one tablet every 4 hours p.r.n. pain, #42. 2. She is to resume taking Tylenol 650 mg oral 3 times a day p.r.n. pain. 3. Zyloprim/allopurinol 300 mg oral daily. 4. Vitamin D3 2000 International Units daily. 5. Furosemide 40 mg oral daily. 6. Culturelle one capsule twice a day. 7. Levothyroxine/synthroid 25 mcg on Tuesday, Tuesday, Tuesday, then 37.5 mcg Tuesday, , Tuesday and Tuesday. 8. Losartan potassium 100 mg oral daily. 9. [place]-3 one capsule oral daily. 10.Metronidazole 1 tablet oral daily. DISCHARGE DIET: Usual diet as tolerated. Drink 8 to 10 glasses of water a day. Activity: No lifting over 10 pounds for 2 weeks. Other activity: Walk at least 6 times daily. Driving: Do not drive for 1 week and while on pain medication. Shower/bathing: May shower. DISCHARGE INSTRUCTIONS: Notify provider if any fever, increased pain, nausea, or vomiting. Keep site clean and dry. Wear abdominal binder for 2 weeks and then as tolerated. SPECIAL INSTRUCTIONS: Use incentive spirometer 10 times every hour while awake.
--- NOTE | 2019-04-08 13:42 | OR ---
DATE OF PROCEDURE: 04/03/2019 PREOPERATIVE DIAGNOSIS: Subacute on chronic cholecystitis and cholelithiasis. POSTOPERATIVE DIAGNOSES: 1. Subacute on chronic cholecystitis and cholelithiasis. 2. Pericholecystic abscess. 3. Incarcerated incisional hernia. OPERATIVE PROCEDURES: Diagnostic laparoscopy with: 1. Cholecystectomy (34046). 2. Drainage of pericholecystic abscess (51565). 3. Repair of incarcerated incisional hernia (00520). ANESTHESIA: General. ANTIQUE AUTOMOBILES REPAIRER: SANDI Allan. INDICATION FOR PROCEDURE: This is a 68-year-old admitted with some ongoing abdominal pain. She also recently had an episode of pancreatitis, which was felt to most likely be a gallstone pancreatitis. Workup at this time is consistent with smouldering cholecystitis with cholelithiasis. Plan is to proceed with a laparoscopic cholecystectomy and possible open approach if necessary. Potential risks of procedure including bleeding, infection, injury to underlying viscera, possible migration of stones into the common bile duct creating recurrent pancreatitis, or any additional procedures for correction were reviewed along with the remote possibility of cardiopulmonary, septic, or hemorrhagic complications leading to , and the patient wishes to proceed. DETAILS OF PROCEDURE: The patient was taken to the operating room and placed in a supine position. After general endotracheal anesthesia was induced, the abdomen was prepped and draped. A transverse epigastric incision was made, and the peritoneal cavity entered under direct vision with an Optiview trocar, inflated to 15 mmHg pressure with CO2. Laparoscope was then reinserted. No underlying trocar insertion site injuries were seen. Following this, bilateral subcostal transversus abdominis plane blocks were placed. As one looked down towards the umbilicus, the patient was noted to have an incisional hernia with incarcerated omentum within it. This was located in the upper-most aspect of the lower midline incision used for a previous section. A transverse infraumbilical incision was made and taken down through the skin and subcutaneous tissue. The underlying hernia contents were then excised along with some of the hernia sac. This then allowed placement of the camera port through that fascial defect, and 1 additional 5 mm trocar was then placed in the right subcostal area. With the camera down in the periumbilical area, the gallbladder was noted to be subacutely inflamed being quite edematous and distended, was silva in coloration, and retracted anteriorly. Posterior to this was a brown, some thinly purulent fluid collection with marked inflammatory response around it. This was evacuated. Cultures of this were obtained. This may or may not be infected, but certainly was associated with marked inflammation in that the pericholecystic abscess once was evacuated, the gallbladder was retracted anteriorly and laterally and dissection with Harmonic scalpel began on the gallbladder neck, continued around the gallbladder neck, continued to the gallbladder neck and cystic duct junction. Once that area was well identified along with the adjacent cystic artery, both structures were taken with a MADI bo load. There appeared to be some additional branch of the cystic artery, which was clipped also as we proceeded to dissect the gallbladder off the gallbladder bed, which was then delivered through the epigastric trocar site with this containing several small stones within it. The area of dissection was then inspected. No bleeding or bile leaks were seen. A Wolf-Anne drain was placed through the right lateral trocar site and positioned into the area of the gallbladder bed. Then, the camera port was then brought back up to the epigastric site and using laparoscopic suture passer, 0 Vicryl sutures were placed closing the incisional hernia with a transverse orientation. Once these sutures were in place, the remaining trocars were removed and peritoneal cavity deflated. The hernia sutures were tied, thus repairing the hernia. The epigastric trocar site also had a single 0 Vicryl stitch placed at the fascial level, and the skin at each incision was closed with some 4-0 Vicryl stitches. Dressing was applied. The patient was taken to the recovery room in satisfactory condition. There were no evident complications. Redd White MD /[id number]
== END 2019-04-04 11:19 | disposition home or self-care (01) | DRG 418 ==
LOC: JP.ED 18:37 → JP.MS 22:23
PROVIDERS: ADMIT Hospitalist; ATTEND Internal Medicine
PROC: 0FT44ZZ Resection of Gallbladder, Percutaneous Endoscopic Approach (ICD-10-PCS; principal; 2019-04-03)
PROC: 0WQF4ZZ Repair Abdominal Wall, Percutaneous Endoscopic Approach (ICD-10-PCS; 2019-04-03)
PROC: 0W9G4ZX Drainage of Peritoneal Cavity, Percutaneous Endoscopic Approach, Diagnostic (ICD-10-PCS; 2019-04-03)
DX: K85.00 Idiopathic acute pancreatitis without necrosis or infection (principal); R10.10 Upper abdominal pain, unspecified; K43.0 Incisional hernia with obstruction, without gangrene; K80.12 Calculus of gallbladder with acute and chronic cholecystitis without obstruction; Z68.43 Body mass index [BMI] 50.0-59.9, adult; E87.6 Hypokalemia; R11.2 Nausea with vomiting, unspecified; I10 Essential (primary) hypertension; E03.9 Hypothyroidism, unspecified; I89.0 Lymphedema, not elsewhere classified; E78.00 Pure hypercholesterolemia, unspecified; M19.90 Unspecified osteoarthritis, unspecified site; M54.9 Dorsalgia, unspecified; G89.29 Other chronic pain; E66.9 Obesity, unspecified; E55.9 Vitamin D deficiency, unspecified; I73.9 Peripheral vascular disease, unspecified; M79.7 Fibromyalgia; H54.7 Unspecified visual loss; Z88.8 Allergy status to other drugs, medicaments and biological substances; Z96.649 Presence of unspecified artificial hip joint
CPT/HCPCS: 36415; 74177; 80053; 82150; 83690; 85025; 96361; 96374; 96376; 99284; 99285; J3010; J7030; J7120; 76705; 80048; 83735; 84100; 85027; 87070; 87075; 87205; 88302; 88304; 94640; 94762; A9270-GY; C9113; J0171; J0330; J0694; J1100; J1170; J2001; J2405; J2704; J2710; J2795; J3480; J3490; J7042; J7050

== ENCOUNTER 2019-04-11 12:44 | Inpatient (IN) | payer MEDICARE ==
[2019-04-11] MEDS ORDERED: Acetaminophen 325 MG Tab PO PRN (13:22)
[2019-04-11] MEDS ORDERED: Acetaminophen 650 MG Supp RECTAL PRN (13:23)
[2019-04-11] MEDS ORDERED: Sodium Chloride 0.9% 10 ML Syringe FLUSH ONE (13:48)
[2019-04-11] MEDS ORDERED: Lactobacillus Rhamnosus GG (Probiotic) Cap PO SCH (14:00)
[2019-04-11] MEDS ORDERED: Potassium Chloride 20 MEQ Tab.ER PO ONE ×2 (14:00→19:39)
[2019-04-11] MEDS ORDERED: Pantoprazole 40 MG Vial IV SCH (14:00)
[2019-04-11] MEDS ORDERED: Iopamidol 612 MG/ML 150 ML Bottle IV SCH (14:00)
[2019-04-11] MEDS: Dextrose 5%-Lactated Ringers 1,000 ML IV SCH ×2 (14:20→22:52)
[2019-04-11] MEDS: Magnesium Sulfate/Water 2 GM in Premix Bag 1 BAG IV SCH ×2 (14:35→20:00)
--- NOTE | 2019-04-11 14:35 | CRLCR ---
INDICATION: Fever. TECHNIQUE: PA and lateral. COMPARISON: None. FINDINGS: Lungs low in volume. No infiltrate. 2.5 cm opacity projected over the right hilum raising question of a mass. No pleural effusion. Heart size and pulmonary vasculature within normal limits. Degenerative changes in the spine and exaggerated thoracic kyphosis. IMPRESSION: 1. Lungs low in volume without obvious infiltrate. 2. 2.5 cm opacity projected over the right hilum raising concern of a mass. CT recommended. 3. Thoracic spine degenerative changes and exaggerated kyphosis. Dictated by Diony Oakes MD @ Apr 11 2019 2:28PM Signed by Dr. Diony Oakes @ Apr 11 2019 2:33PM
[2019-04-11] MEDS: Potassium Chloride 20 MEQ, Lidocaine 1% 2 ML in Sodium Chloride 0.9% 100 ML IV SCH ×2 (15:00→18:28)
--- NOTE | 2019-04-11 15:13 | CRLCT ---
INDICATION: Diarrhea. Fever TECHNIQUE: CT abdomen and pelvis acquired with IV contrast. 150 mL of Isovue 300 administered. COMPARISON: 04/01/2019 FINDINGS: Lower chest: A tiny right pleural effusion with minor adjacent subsegmental atelectasis. Liver: Unremarkable. Spleen: Unremarkable. Pancreas: Interval resolution of the previously seen mild peripancreatic edema. Gallbladder and bile ducts: Interval cholecystectomy. Mild postsurgical stranding in the gallbladder fossa. Adrenal glands: Unremarkable. Kidneys: No hydronephrosis. A subcentimeter right renal low-density lesion again seen, statistically a small cyst. Apparent mild urothelial enhancement in the mid right ureter. GI tract: No bowel obstruction. No evidence of appendicitis. Apparent rectal wall thickening. Possible mild stranding and edema adjacent to the distal sigmoid colon, although evaluation of this region is limited by artifact. Slight prominence of the remainder of the colonic wall is probably related to underdistention. Vascular structures: Minor atherosclerotic changes. Few small caliber collateral vessels again seen. Lymph nodes: No abnormally enlarged lymph nodes. Miscellaneous: Multiple small foci of extraluminal gas in the anterior aspect of the upper abdomen and a small focus of extraluminal gas in the anterior midabdomen. No significant free air. A focus of induration in the periumbilical subcutaneous fat, likely postsurgical. Pelvic Organs: Partially obscured by artifact. No gross abnormality visualized. Bones: A right hip arthroplasty. Degenerative changes again seen in the spine. IMPRESSION: Interval cholecystectomy. Foci of extraluminal gas in the anterior abdomen, probably postsurgical. Interval resolution of the previously seen mild peripancreatic edema. Apparent rectal wall thickening and possible mild stranding and edema adjacent to the distal sigmoid colon, versus artifact. Correlate clinically for mild distal proctocolitis. Apparent mild urothelial enhancement in the mid right ureter. Correlate with urinalysis to exclude a UTI. A tiny right pleural effusion. Dictated by Paramjit Correia MD @ 04/11/2019 3:11:24 PM Please note that all CT scans at this facility use dose modulation, iterative reconstruction, and/or weight-based dosing when appropriate to reduce radiation dose to as low as reasonably achievable. Dictated by: Paramjit Correia MD @ 04/11/2019 15:12:00 (Electronically Signed)
--- NOTE | 2019-04-11 17:22 | PCM.CONS ---
H&P History of Present Illness - General Date of Service: 04/11/19 Admit Problem/Dx: Admission Diagnosis/Problem Admission Diagnosis/Problem Dehydration Source of Information: Patient, Old Records, Provider, RN Notes Reviewed History Limitations: Reports: No Limitations - History of Present Illness Initial Comments - Free Text/Narative: Ms. Hood is a 68-year-old woman who had been asked to see by Dr. White for further suggestions concerning evaluation and management of recurrent diarrhea, weakness, and anorexia. She was first hospitalized at this facility with mild pancreatitis. Was felt likely that it was secondary to underlying gallbladder disease, extensive evaluation of her gallbladder was negative at that time. She had received IV antibiotics during that hospitalization. About a week after discharge to home she developed diarrhea which was evaluated and found to be positive for C. difficile infection. She received a course of antibiotic therapy with metronidazole and symptoms resolved. She then began to experience more right upper quadrant pain and was seen for follow-up. On that evaluation she was found to have evidence of under lying gallbladder disease and did undergo a laparoscopic cholecystectomy just over a week ago. She was discharged home in about 2 days after discharge began to experience recurrent diarrhea this is persistent over the past 6 days, she has become progressively more weak with very poor oral intake. She was evaluated at the clinic today white blood cell count was found to be elevated. Stool for C. difficile is positive. CT scan of the abdomen and pelvis showed no acute abnormalities to explain symptoms other than inflammation in the colon. - Related Data Allergies/Adverse Reactions: Allergies Allergy/AdvReac Type Severity Reaction Status Date / Time lisinopril AdvReac Cough Verified 04/01/19 19:04 Home Medications: Home Meds Acetaminophen [Tylenol Arthritis] 650 mg PO TID PRN 03/27/18 [History] Allopurinol [Zyloprim] 150 mg PO DAILY 03/27/18 [History] Cholecalciferol (Vitamin D3) [D3 Dots] 2,000 unit PO DAILY 03/27/18 [History] Furosemide 40 mg PO DAILY 03/27/18 [History] Levothyroxine Sodium [Synthroid] 25 mcg PO ASDIRECTED 03/27/18 [History] Losartan Potassium [Cozaar] 100 mg PO DAILY 03/27/18 [History] [place]-3/DHA/Epa/Fish Oil [[place]-3 Fish Oil 1,000 MG Sfgl] 1 cap PO DAILY [History] Lactobacillus Rhamnosus GG [Culturelle] 1 cap PO BID #60 cap 03/02/19 [Rx] metroNIDAZOLE [Metronidazole] 1 tab PO DAILY 04/01/19 [History] Levothyroxine Sodium [Synthroid] 37.5 mcg PO ASDIRECTED 04/02/19 [History] Acetaminophen/oxyCODONE [Percocet 325-5 MG] 1 tab PO Q4HR PRN #42 tablet [Rx] Past Medical History HEENT History: Reports: None, Impaired Vision Cardiovascular History: Reports: High Cholesterol, Hypertension Gastrointestinal History: Reports: Pancreatitis UNIFORM MAKER History: Reports: , Spontaneous Musculoskeletal History: Reports: Arthritis, Back Pain, Chronic Neurological History: Reports: None Endocrine/Metabolic History: Reports: Hypothyroidism, Obesity/BMI 30+, Vitamin D Deficiency, Other (See Below) Other Endocrine/Metabolic History: para thyroid removed - Infectious Disease History Infectious Disease History: Reports: C-Difficile - Past Surgical History Cardiovascular Surgical History: Reports: None GI Surgical History: Reports: Appendectomy, Colonoscopy Female Surgical History: Reports: Section Endocrine Surgical History: Reports: None Neurological Surgical History: Reports: Other (See Below) Other Neurological Surgeries/Procedures: back surgery for spinal stenosis Musculoskeletal Surgical History: Reports: Hip Replacement Social & Family History - Family History Family Medical History: Noncontributory - Tobacco Use Smoking Status *Q: Never Smoker - Caffeine Use Caffeine Use: Reports: Coffee Other Caffeine Use: 1 cup day - Recreational Drug Use Recreational Drug Use: No - Living Situation & Occupation Living situation: Reports: , with Family (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 Denies: Abdominal Pain , Black Stool, Bloody Stool, Constipation, Difficulty Swallowing, Distension, Nausea, Vomiting Genitourinary: Reports: No Symptoms Musculoskeletal: Reports: No Symptoms Skin: Reports: No Symptoms Psychiatric: Reports: No Symptoms Neurological: Reports: No Symptoms Hematologic/Lymphatic: Reports: No Symptoms Immunologic: Reports: No Symptoms Exam - Exam Exam: See Below - Vital Signs Vital Signs: Last Vital Signs Temp 99.5 F 04/11/19 15:00 Pulse 76 04/11/19 15:00 Resp 16 04/11/19 15:00 BP 163/85 H 04/11/19 15:00 Pulse Ox 91 L 04/11/19 15:00 Weight: 275 lb - Exam Quality Assessment: DVT Prophylaxis General: Alert, Oriented, Cooperative, Moderate Distress Neck: Supple, Trachea Midline Lungs: Clear to Auscultation, Normal Respiratory Effort Cardiovascular: Regular Rate, Regular Rhythm, Normal S1, Normal S2. No: Systolic Murmur, Diastolic Murmur GI/Abdominal Exam: Soft, Non-Tender, No Organomegaly, No Distention Back Exam: Normal Inspection, Full Range of Motion Extremities: Non-Tender, No Pedal Edema - Patient Data Lab Results Last 24 hrs: Laboratory Results - last 24 hr 04/11/19 04/11/19 Range/Units 13:15 13:15 Sodium 140 (140-148) mmol/L Potassium 2.8 L* (3.6-5.2) mmol/L Chloride 100 (100-108) mmol/L Carbon Dioxide 28 (21-32) mmol/L Anion Gap 14.8 H (5.0-14.0) mmol/L BUN 10 (7-18) mg/dL Creatinine 0.9 (0.6-1.0) mg/dL Est Cr Clr Drug Dosing TNP Estimated GFR (MDRD) > 60 (>60) Glucose 120 H (74-106) mg/dL Calcium 8.4 L (8.5-10.1) mg/dL Total Bilirubin 1.0 D (0.2-1.0) mg/dL AST 25 (15-37) U/L ALT 30 (12-78) U/L Alkaline Phosphatase 103 (46-116) U/L Total Protein 6.5 (6.4-8.2) g/dL Albumin 3.0 L (3.4-5.0) g/dL Globulin 3.5 (2.3-3.5) g/dL Albumin/Globulin Ratio 0.9 L (1.2-2.2) Urine Color Yellow Urine Appearance Slightly cloudy Urine pH 5.0 (4.5-8.0) Ur Specific Johnson 1.010 (1.008-1.030) Urine Protein Negative (NEGATIVE) mg/dL Urine Glucose (UA) Normal (NEGATIVE) mg/dL Urine Ketones Negative (NEGATIVE) mg/dL Urine Occult Blood Negative (NEGATIVE) Urine Nitrite Negative (NEGATIVE) Urine Bilirubin Negative (NEGATIVE) Urine Urobilinogen Normal (NORMAL) mg/dL Ur Leukocyte Esterase Negative (NEGATIVE) Urine RBC 0-5 (0-5) Urine WBC 0-5 (0-5) Ur Epithelial Cells Few Amorphous Sediment Few Urine Bacteria Not seen Urine Mucus Not seen Result Diagrams: 04/11/19 13:15 Consult PN Assessment/Plan Procedures: Procedures AIRWAY INHALATION TREATMENT (04/01/19) ALANINE AMINO (ALT) (SGPT) (02/26/19) ASSAY ALKALINE PHOSPHATASE (02/26/19) ASSAY OF AMYLASE (04/01/19) ASSAY OF LIPASE (04/01/19) ASSAY OF MAGNESIUM (04/01/19) ASSAY OF PHOSPHORUS (04/01/19) ASSAY OF SERUM POTASSIUM (02/26/19) CARPAL TUNNEL SURGERY (08/01/18) COMP SCREEN MAMMOGRAM ADD-ON (10/05/16) COMPLETE CBC AUTOMATED (04/01/19) COMPLETE CBC W/AUTO DIFF WBC (04/01/19) COMPREHEN METABOLIC PANEL (04/01/19) CT ABD & PELV W/CONTRAST (04/01/19) CT ABD & PELVIS W/O CONTRAST (02/26/19) CT SOFT TISSUE NECK W/DYE (03/20/18) CULTR BACTERIA EXCEPT BLOOD (04/01/19) CULTURE OTHR SPECIMN AEROBIC (04/01/19) ECHO EXAM OF ABDOMEN (04/01/19) EMERGENCY DEPT VISIT (04/01/19) EMERGENCY DEPT VISIT (04/01/19) HEPATOBIL SYST IMAGE W/DRUG (02/26/19) HOT OR COLD PACKS THERAPY (10/20/15) HYDRATE IV INFUSION ADD-ON (04/01/19) MANUAL THERAPY 1/> REGIONS (10/20/15) MEASURE BLOOD OXYGEN LEVEL (04/01/19) METABOLIC PANEL TOTAL CA (04/01/19) MRI ABDOMEN W/O DYE (02/26/19) PT EVALUATION (09/24/15) ROUTINE VENIPUNCTURE (04/01/19) SMEAR GRAM STAIN (04/01/19) THER/PROPH/DIAG INJ IV PUSH (04/01/19) THER/PROPH/DIAG IV INF INIT (02/26/19) THERAPEUTIC EXERCISES (10/20/15) TISSUE EXAM BY PATHOLOGIST (04/01/19) TISSUE EXAM BY PATHOLOGIST (04/01/19) TRANSFERASE (AST) (SGOT) (02/26/19) TRANSVAGINAL US NON-OB (03/24/17) TX/PRO/DX INJ NEW DRUG ADDON (02/26/19) TX/PRO/DX INJ SAME DRUG SALES STOCK ASSOCIATE (04/01/19) ULTRASOUND THERAPY (09/24/15) URINALYSIS AUTO W/SCOPE (02/26/19) URINE CULTURE/COLONY COUNT (02/26/19) US EXAM ABDO BACK WALL BERMAN (10/29/15) US EXAM ABDOM COMPLETE (02/26/19) US EXAM OF HEAD AND NECK (04/16/16) US EXAM PELVIC COMPLETE (03/24/17) Problem List Initiated/Reviewed/Updated: Yes My Orders Last 24 Hours: My Active Orders 04/11/19 14:30 Potassium Chloride 20 meq Lidocaine 1% [Xylocaine 1%] 2 ml Sodium Chloride 0.9 % [Normal Saline] 100 ml IV Q2H 04/11/19 19:00 POTASSIUM,K [CHEM] Stat 04/12/19 05:00 BASIC METABOLIC PANEL,BMP [CHEM] Timed CBC WITH AUTO DIFF [HEME] Timed MAGNESIUM [CHEM] Timed Plan: ASSESSMENT AND RECOMMENDATIONS RECURRENT C. DIFFICILE DIARRHEA-recent episode within the past month, treated with metronidazole. Now has experienced recurrent symptoms following her recent cholecystectomy. -IV fluids for hydration -Continue oral vancomycin 125 mg by mouth every 6 hours 14 days -Probiotic therapy twice daily -Consider referral to gastroenterology for stool transplant if she has another recurrent episode STATUS POST RECENT CHOLECYSTECTOMY -Ongoing postoperative care per Dr. White Requesting Provider: LATANYA Date Consult Requested: 04/11/19 Reason for Consult: Weakness, fever, diarrhea
--- NOTE | 2019-04-11 18:24 | HP ---
Jordana presented today to the clinic for her postoperative followup following a diagnostic laparoscopy with cholecystectomy, drainage of pericholecystic abscess, and repair of incarcerated incisional hernia. Date of surgery is 03/31/2019. She states that since she has gotten home, she has been weak, short of breath, tired, unable to walk 20 feet without being short of breath, low-grade fever, and multiple diarrhea, stools a day. She states that she is also reporting swelling in both of her extremities. PAST MEDICAL HISTORY: 1. Acute pancreatitis on 03/01/2019. 2. Hypertension. 3. Hypothyroidism. 4. Osteoarthritis of knee. 5. Obesity. 6. Phlebitis on both legs during pregnancies. 7. Rosacea and varicose vein. PAST SURGICAL HISTORY: 1. Appendectomy. 2. section. 3. Colonoscopy with hyperplastic polyp 2004. 4. Lumbar laminectomy, left L4-5. 5. Hemilaminotomy, foraminotomy, and reach over right L4-5 microsurgical decompression. 6. Ovarian cyst removal. 7. Parathyroidectomy. 8. Revise medium and carpal tunnel surgery. 9. Carpal tunnel was on 08/01/2018. 10.Total hip replacement, right on 08/01/2013. 11.Tubal ligation. 12.Varicose vein surgery, bilateral stripping in 1985. SOCIAL HISTORY: , retired RN. Children 9 and 34 grandchildren. CURRENT MEDICATIONS: Include: 1. Tylenol Arthritis Pain 650 mg every 4 hours p.r.n. pain. 2. Zyloprim 300 mg daily. 3. Vitamin D3 2000 international units daily. 4. Lasix 40 mg tablets one daily. 5. Synthroid 25 mcg 1 tablet by mouth 3 times a week and 1.5 tablets 4 days a week. 6. Cozaar 100 mg one by mouth once daily. 7. Magnesium 500 mg by mouth once a day. 8. [place]-3 1000 mg capsules once daily. 9. Prilosec 20 mg once daily. 10.Calcium oyster shell 500 mg by mouth once a day. 11.Prednisone 10 mg take with food, 30 mg a day for 5 days for gout flare-up. 12.Probiotic one tablet twice daily. HISTORY OF PRESENT ILLNESS: Jordana Hood was diagnosed with pancreatitis. She was seen in the ER at [facility]. She was put on antibiotics. A few days later, she was diagnosis with C difficile. She was on Flagyl, then on the last day of treatment, she developed severe right upper quadrant abdominal pain, came into the ER and was diagnosed with cholecystitis. She was admitted to the hospital, had her laparoscopic cholecystectomy, drainage of pericholecystic abscess, repair of incarcerated incisional hernia on 04/03/2019, she was discharged to home and she states that she just did not feel any better. REVIEW OF SYSTEMS: GENERAL: She has had a low-grade fever, weight loss, and weakness. HEAD: Negative for any headache. NECK: Negative. CHEST: No chest pain, shortness of breath, fast or irregular heart beat. LUNGS: No cough. Short of breath, unable to walk very far without being extremely short of breath. ABDOMEN: Diarrhea; everything she eats or drinks goes straight through her; too many stools to count. No abdominal pain. No red or black stool. : Negative for any UTI signs and symptoms. EXTREMITIES: Chronic joint pain, marked peripheral, unmarked lower extremity edema. NEURO: Dizzy and weak. PSYCHIATRIC: Mood and affect appropriate. SKIN: Negative for any rash. ADMISSION DIAGNOSIS: 1. Dehydration secondary to diarrhea. 2. Weakness. 3. Positive C difficile. Stools culture. 4. Hypomagnesemia, low magnesium 1.0. 5. Hypokalemia, potassium 2.8. 6. Rosacea. 7. Hypertension. 8. Hypothyroidism. 9. Osteoarthritis of knee. PLAN: 1. Admit to see [facility], Redd White MD. 2. Inpatient length of hospitalization, three nights two days. 3. Allergies to lisinopril. 4. Full code. 5. Diet: Regular. 6. Activity: Up ad renee with assistance. 7. Vital signs every 6 hours. 8. IV hydration D5 LR at 100 mL per hour. 9. Lab CBC, CMP, amylase, lipase, and magnesium and C diff were checked at the clinic. 10.Tylenol 650 mg p.o. every 4 hours p.r.n. pain or fever. 11.SCDs. 12.Intake and output. 13.Protonix 40 mg IV q.[address] of abdomen and pelvis with IV contrast, urgent. 15.Check chest x-ray PA and lateral, urgent. 16.Zyloprim 300 mg p.o. daily. 17.Lasix 40 mg p.o. daily. 18.Levothyroxine 25 mcg p.o. daily. 19.Probiotic one b.i.d. p.o. 20.Check UA, UC. 21.Consult: Josué Sommers MD. Phone call was made and patient's condition discussed. Carol Gonzales PA-C /[id number]
[2019-04-11] MEDS: Vancomycin 250 MG/5 ML ML Oral Solution PO SCH ×2 (18:28→22:52)
[2019-04-11] MEDS ORDERED: Potassium Chloride Riders 40 MEQ in Premix Bag 1 BAG IV ONE (19:39)
[2019-04-11] MEDS: Lactobacillus Rhamnosus GG (Probiotic) Cap PO SCH (21:07)
[2019-04-12] MEDS: Magnesium Sulfate/Water 2 GM in Premix Bag 1 BAG IV SCH ×4 (01:04→19:23)
[2019-04-12] MEDS: Vancomycin 250 MG/5 ML ML Oral Solution PO SCH ×4 (05:39→21:35)
[2019-04-12] MEDS ORDERED: Levothyroxine 25 MCG Tab PO SCH (07:30)
[2019-04-12] MEDS: Lactobacillus Rhamnosus GG (Probiotic) Cap PO SCH ×2 (07:59→21:34)
[2019-04-12] MEDS: Allopurinol 300 MG Tab PO SCH (08:00)
[2019-04-12] MEDS: Furosemide 40 MG Tab PO SCH (08:00)
[2019-04-12] MEDS ORDERED: Levothyroxine 25 MCG Tab PO ONE (09:00)
[2019-04-12] MEDS ORDERED: Allopurinol 300 MG Tab PO SCH (09:00)
[2019-04-12] MEDS ORDERED: Potassium Chloride 20 MEQ Tab.ER PO ONE (09:00)
[2019-04-12] MEDS: Losartan 50 MG Tab PO SCH (09:34)
--- NOTE | 2019-04-12 14:55 | PN ---
DATE OF SERVICE: 04/12/2019 SUBJECTIVE: Jordana reports she is having less bowel movements, feeling better after her magnesium and potassium were replaced. Afebrile. Remains to feel weak. Less abdominal cramping. No fever, chills, night sweats, or fatigue. HEENT negative. Neck negative. No chest pain. Lungs have shortness of breath and oxygen was put on during the night at 2 L. She did go down to 89% and with O2 was 92% to 95%. Abdomen as above. , no UTI signs and symptoms. Extremities without joint pain. She does have stiffness in her knees and pain in lower back. Neuro intact. On psychiatric, mood and affect appropriate. Skin without rash. OBJECTIVE: GENERAL: Jordana Hood is a 68-year-old female who does look like she is feeling better. VITAL SIGNS: TPR is 97.8, 61, 18, blood pressure 167/71. HEENT: Negative. NECK: Supple. HEART: Regular rate and rhythm. LUNGS: Clear. ABDOMEN: Negative. EXTREMITIES: Revealed trace peripheral edema. NEUROLOGIC: Intact. PSYCHIATRIC: Mood and affect appropriate. SKIN: Without rash. ASSESSMENT: 1. Clostridium difficile. 2. Dehydration secondary to diarrhea. 3. Weakness. 4. Hypomagnesium. 5. Hypokalemia. 6. Hypertension. 7. Hypothyroidism. PLAN: Remove abdominal sutures, SP cholecystectomy, Synthroid restarted as home dose, Cozaar 100 mg p.o. daily started. To follow up p.r.n. or in a.m. Carol Gonzales PA-C /[id number]
[2019-04-12] MEDS: Pantoprazole 40 MG Tab.CR PO SCH (15:46)
--- NOTE | 2019-04-12 17:31 | PCM.PN ---
- General Info Date of Service: 04/12/19 Subjective Update: Ms. Hood is improved since admission yesterday with less diarrhea, stools are becoming slowly more formed. No significant abdominal pain or temperature elevation. Energy level and appetite seem to be improving. Functional Status: Reports: Tolerating Diet, Ambulating, Urinating - Review of Systems General: Reports: Weakness. Denies: Fever, Chills Pulmonary: Reports: No Symptoms Cardiovascular: Reports: No Symptoms Gastrointestinal: Reports: Decreased Appetite, Diarrhea. Denies: Abdominal Pain , Difficulty Swallowing, Nausea, Vomiting - Patient Data Vitals - Most Recent: Last Vital Signs Temp 97.8 F 04/12/19 15:42 Pulse 63 04/12/19 15:42 Resp 16 04/12/19 15:42 BP 171/79 H 04/12/19 15:42 Pulse Ox 94 L 04/12/19 15:42 Weight - Most Recent: 275 lb I&O - Last 24 Hours: Intake & Output 04/12/19 04/12/19 04/12/19 06:59 14:59 22:59 Intake Total 1790 1020 240 Balance 1790 1020 240 Lab Results Last 24 Hours: Laboratory Results - last 24 hr 04/11/19 04/12/19 04/12/19 Range/Units 19:00 06:00 06:00 WBC 9.4 (4.5-11.0) K/uL RBC 4.05 (3.30-5.50) M/uL Hgb 12.4 (12.0-15.0) g/dL Hct 37.8 (36.0-48.0) % MCV 93 (80-98) fL MCH 31 (27-31) pg MCHC 33 (32-36) % Plt Count 146 L (150-400) K/uL Neut % (Auto) 67 H (36-66) % Lymph % (Auto) 16 L (24-44) % [place] % (Auto) 14 H (2-6) % Eos % (Auto) 2 (2-4) % Baso % (Auto) 1 (0-1) % Sodium 141 (140-148) mmol/L Potassium 2.9 L* 3.5 L (3.6-5.2) mmol/L Chloride 107 (100-108) mmol/L Carbon Dioxide 27 (21-32) mmol/L Anion Gap 10.5 (5.0-14.0) mmol/L BUN 7 (7-18) mg/dL Creatinine 0.7 (0.6-1.0) mg/dL Est Cr Clr Drug Dosing TNP Estimated GFR (MDRD) > 60 (>60) Glucose 120 H (74-106) mg/dL Calcium 8.1 L (8.5-10.1) mg/dL Magnesium 2.5 H D (1.8-2.4) mg/dL Med Orders - Current: Current Medications Acetaminophen (Tylenol) 325 mg PO Q4H PRN PRN Reason: FEVER/PAIN Acetaminophen (Tylenol) 650 mg RECTAL Q4H PRN PRN Reason: FEVER/PAIN Allopurinol (Zyloprim) 150 mg PO DAILY [facility] Last Admin: 04/12/19 08:00 Dose: 150 mg Furosemide (Lasix) 40 mg PO DAILY [facility] Last Admin: 04/12/19 08:00 Dose: 40 mg Magnesium Sulfate 2 gm/ Premix 50 mls @ 25 mls/hr IV Q6H [facility] Stop: 04/13/19 09:59 Last Admin: 04/12/19 14:36 Dose: 25 mls/hr Lactobacillus Rhamnosus (Culturelle) 1 cap PO BID [facility] Last Admin: 04/12/19 07:59 Dose: 1 cap Levothyroxine Sodium (Levothyroxine) 37.5 mcg PO [id number] [facility] Levothyroxine Sodium (Levothyroxine) 25 mcg PO [id number]@0730 [facility] Losartan Potassium (Cozaar) 100 mg PO DAILY [facility] Last Admin: 04/12/19 09:34 Dose: 100 mg Pantoprazole Sodium (Protonix) 40 mg PO Q24H [facility] Last Admin: 04/12/19 15:46 Dose: 40 mg Vancomycin HCl (Vancocin 250 Mg/5 Ml Soln) 125 mg PO QID [facility] Stop: 04/21/19 16:01 Last Admin: 04/12/19 15:46 Dose: 125 mg Discontinued Medications Dextrose/Lactated Ringer's (Dextrose 5%-Lactated Ringers) 1,000 mls @ 100 mls/ hr IV ASDIRECTED [facility] Last Admin: 04/11/19 22:52 Dose: 100 mls/hr Potassium Chloride 20 meq/Lidocaine HCl 2 ml/ Sodium Chloride 112 mls @ 56 mls/ hr IV Q2H [facility] Stop: 04/11/19 18:29 Last Admin: 04/11/19 18:28 Dose: 56 mls/hr Sodium Chloride (Normal Saline) 85 mls @ 3 mls/sec IV ASDIRECTED [facility] Stop: 04/11/19 14:01 Last Admin: 04/11/19 14:08 Dose: 3 mls/sec Potassium Chloride 40 meq/ (Premix) 100 mls @ 25 mls/hr IV ONETIME ONE Stop: 04/11/19 23:38 Last Admin: 04/11/19 21:01 Dose: 25 mls/hr Iopamidol (Isovue-300 (61%)) 150 ml IV . DIRECTED [facility] Stop: 04/11/19 14:01 Last Admin: 04/11/19 14:07 Dose: 150 ml Lactobacillus Rhamnosus (Culturelle) 1 cap PO BID [facility] Levothyroxine Sodium (Levothyroxine) 25 mcg PO ACBREAKFAST [facility] Last Admin: 04/12/19 07:52 Dose: 25 mcg Levothyroxine Sodium (Levothyroxine) 12.5 mcg PO ACBREAKFAST ONE Stop: 04/12/19 09:01 Last Admin: 04/12/19 09:33 Dose: 12.5 mcg Lidocaine HCl (Xylocaine-Mpf 1%) 4 ml INJECT ONETIME ONE Stop: 04/11/19 20:42 Last Admin: 04/11/19 21:02 Dose: 4 ml Pantoprazole Sodium (Protonix Iv) 40 mg IV Q24H [facility] Last Admin: 04/11/19 14:35 Dose: 40 mg Potassium Chloride (Klor-Con M20) 40 meq PO ONETIME ONE Stop: 04/11/19 14:01 Last Admin: 04/11/19 14:35 Dose: 40 meq Potassium Chloride (Klor-Con M20) 40 meq PO ONETIME ONE Stop: 04/11/19 19:40 Last Admin: 04/11/19 21:06 Dose: 40 meq Potassium Chloride (Klor-Con M20) 40 meq PO ONETIME ONE Stop: 04/12/19 09:01 Last Admin: 04/12/19 09:35 Dose: 40 meq Sodium Chloride (Saline Flush) 10 ml FLUSH ONETIME ONE Stop: 04/11/19 13:49 Last Admin: 04/11/19 14:07 Dose: 10 ml - Exam Quality Assessment: DVT Prophylaxis General: Alert, Oriented, Cooperative, Mild Distress Lungs: Clear to Auscultation, Normal Respiratory Effort Cardiovascular: Regular Rate, Regular Rhythm, No Murmurs GI/Abdominal Exam: Soft, Non-Tender, No Organomegaly, No Distention Extremities: Non-Tender, No Pedal Edema - Problem List Review Problem List Initiated/Reviewed/Updated: Yes - My Orders Last 24 Hours: My Active Orders 04/12/19 17:29 Convert IV to Saline Lock [OM.PC] Routine 04/13/19 05:00 BASIC METABOLIC PANEL,BMP [CHEM] Timed - Plan Plan:: ASSESSMENT AND RECOMMENDATIONS RECURRENT C. DIFFICILE DIARRHEA-recent episode within the past month, treated with metronidazole. Now has experienced recurrent symptoms following her recent cholecystectomy. Improved since admission with less diarrhea and stools becoming slowly more formed. No significant abdominal pain or temperature elevation -Saline lock IV -Continue oral vancomycin 125 mg by mouth every 6 hours 14 days -Probiotic therapy twice daily -Consider referral to gastroenterology for stool transplant if she has another recurrent episode STATUS POST RECENT CHOLECYSTECTOMY -Ongoing postoperative care per Dr. White
[2019-04-13] MEDS: Magnesium Sulfate/Water 2 GM in Premix Bag 1 BAG IV SCH ×2 (02:54→07:53)
[2019-04-13] MEDS: Vancomycin 250 MG/5 ML ML Oral Solution PO SCH ×4 (05:51→21:32)
[2019-04-13] MEDS ORDERED: Levothyroxine 25 MCG Tab PO SCH (07:30)
[2019-04-13] MEDS: Lactobacillus Rhamnosus GG (Probiotic) Cap PO SCH ×2 (08:00→20:04)
[2019-04-13] MEDS: Losartan 50 MG Tab PO SCH (08:00)
[2019-04-13] MEDS: Allopurinol 300 MG Tab PO SCH (08:01)
[2019-04-13] MEDS: Furosemide 40 MG Tab PO SCH (08:01)
--- NOTE | 2019-04-13 11:16 | PN ---
DATE OF SERVICE: 04/13/2019 SUBJECTIVE: Jordana states that she is feeling much better. Her bowel movements have decreased in number and size. Appetite has improved. Oral intake was 1860. Urine output not recorded. She has been afebrile. Remainder of review of systems negative for any pertinent positives and negatives. Her urine culture did run out mixed george, and her vital signs, she has been afebrile, but blood pressure has been elevated, systolic is 165 to 178 and diastolic 53 to 77. OBJECTIVE: GENERAL: Jordana Hood is a 68-year-old female. She is alert, oriented, color has improved. VITAL SIGNS: TPR is 98.2, 57, 18, blood pressure 167/77. Exam deferred. The patient is getting up and going to the bathroom. ASSESSMENT: 1. Clostridium difficile. 2. Dehydration secondary to diarrhea. 3. Weakness. 4. Hypomagnesemia. 5. Hypokalemia. 6. Hypertension. 7. Hypothyroidism. PLAN: Surgical team to sign off, to have C. difficile rechecked after antibiotic treatment to make sure there is no reoccurrence. Carol Gonzales PA-C /[id number]
--- NOTE | 2019-04-13 12:34 | PCM.PN ---
- General Info Date of Service: 04/13/19 Subjective Update: Ms. Hood has remained stable since yesterday, all movements have been less frequent and more formed. Vital signs have been stable and she has remained afebrile. Appetite improving but she continues to feel very weak. Functional Status: Reports: Tolerating Diet, Ambulating, Urinating - Review of Systems General: Reports: Weakness. Denies: Fever, Chills Pulmonary: Reports: No Symptoms Cardiovascular: Reports: No Symptoms Gastrointestinal: Reports: No Symptoms - Patient Data Vitals - Most Recent: Last Vital Signs Temp 97.5 F 04/13/19 10:51 Pulse 64 04/13/19 10:51 Resp 18 04/13/19 10:51 BP 156/64 H 04/13/19 10:51 Pulse Ox 94 L 04/13/19 10:51 Weight - Most Recent: 275 lb I&O - Last 24 Hours: Intake & Output 04/12/19 04/13/19 04/13/19 22:59 06:59 14:59 Intake Total 240 650 50 Balance 240 650 50 Lab Results Last 24 Hours: Laboratory Results - last 24 hr 04/13/19 Range/Units 05:35 Sodium 140 (140-148) mmol/L Potassium 3.7 (3.6-5.2) mmol/L Chloride 106 (100-108) mmol/L Carbon Dioxide 30 (21-32) mmol/L Anion Gap 4.2 L (5.0-14.0) mmol/L BUN 8 (7-18) mg/dL Creatinine 0.8 (0.6-1.0) mg/dL Est Cr Clr Drug Dosing TNP Estimated GFR (MDRD) > 60 (>60) Glucose 103 (74-106) mg/dL Calcium 8.4 L (8.5-10.1) mg/dL Jono Results Last 24 Hours: Microbiology 04/11/19 14:48 Urine Culture - Preliminary Urine, Clean Catch MIXED PACHECO DAY 1 Med Orders - Current: Current Medications Acetaminophen (Tylenol) 325 mg PO Q4H PRN PRN Reason: FEVER/PAIN Last Admin: 04/12/19 21:39 Dose: 325 mg Acetaminophen (Tylenol) 650 mg RECTAL Q4H PRN PRN Reason: FEVER/PAIN Allopurinol (Zyloprim) 150 mg PO DAILY [facility] Last Admin: 04/13/19 08:01 Dose: 150 mg Furosemide (Lasix) 40 mg PO DAILY [facility] Last Admin: 04/13/19 08:01 Dose: 40 mg Lactobacillus Rhamnosus (Culturelle) 1 cap PO BID [facility] Last Admin: 04/13/19 08:00 Dose: 1 cap Levothyroxine Sodium (Levothyroxine) 37.5 mcg PO SuTuThSa@0730 [facility] Levothyroxine Sodium (Levothyroxine) 25 mcg PO MoWeFr@0730 [facility] Last Admin: 04/13/19 07:52 Dose: 25 mcg Losartan Potassium (Cozaar) 100 mg PO DAILY [facility] Last Admin: 04/13/19 08:00 Dose: 100 mg Pantoprazole Sodium (Protonix) 40 mg PO Q24H [facility] Last Admin: 04/12/19 15:46 Dose: 40 mg Vancomycin HCl (Vancocin 250 Mg/5 Ml Soln) 125 mg PO QID [facility] Stop: 04/21/19 16:01 Last Admin: 04/13/19 09:31 Dose: 125 mg Discontinued Medications Dextrose/Lactated Ringer's (Dextrose 5%-Lactated Ringers) 1,000 mls @ 100 mls/ hr IV ASDIRECTED [facility] Last Admin: 04/11/19 22:52 Dose: 100 mls/hr Magnesium Sulfate 2 gm/ Premix 50 mls @ 25 mls/hr IV Q6H [facility] Stop: 04/13/19 09:59 Last Admin: 04/13/19 07:53 Dose: 25 mls/hr Potassium Chloride 20 meq/Lidocaine HCl 2 ml/ Sodium Chloride 112 mls @ 56 mls/ hr IV Q2H [facility] Stop: 04/11/19 18:29 Last Admin: 04/11/19 18:28 Dose: 56 mls/hr Sodium Chloride (Normal Saline) 85 mls @ 3 mls/sec IV ASDIRECTED [facility] Stop: 04/11/19 14:01 Last Admin: 04/11/19 14:08 Dose: 3 mls/sec Potassium Chloride 40 meq/ (Premix) 100 mls @ 25 mls/hr IV ONETIME ONE Stop: 04/11/19 23:38 Last Admin: 04/11/19 21:01 Dose: 25 mls/hr Iopamidol (Isovue-300 (61%)) 150 ml IV . DIRECTED [facility] Stop: 04/11/19 14:01 Last Admin: 04/11/19 14:07 Dose: 150 ml Lactobacillus Rhamnosus (Culturelle) 1 cap PO BID [facility] Levothyroxine Sodium (Levothyroxine) 25 mcg PO ACBREAKFAST [facility] Last Admin: 04/12/19 07:52 Dose: 25 mcg Levothyroxine Sodium (Levothyroxine) 12.5 mcg PO ACBREAKFAST ONE Stop: 04/12/19 09:01 Last Admin: 04/12/19 09:33 Dose: 12.5 mcg Lidocaine HCl (Xylocaine-Mpf 1%) 4 ml INJECT ONETIME ONE Stop: 04/11/19 20:42 Last Admin: 04/11/19 21:02 Dose: 4 ml Pantoprazole Sodium (Protonix Iv) 40 mg IV Q24H [facility] Last Admin: 04/11/19 14:35 Dose: 40 mg Potassium Chloride (Klor-Con M20) 40 meq PO ONETIME ONE Stop: 04/11/19 14:01 Last Admin: 04/11/19 14:35 Dose: 40 meq Potassium Chloride (Klor-Con M20) 40 meq PO ONETIME ONE Stop: 04/11/19 19:40 Last Admin: 04/11/19 21:06 Dose: 40 meq Potassium Chloride (Klor-Con M20) 40 meq PO ONETIME ONE Stop: 04/12/19 09:01 Last Admin: 04/12/19 09:35 Dose: 40 meq Sodium Chloride (Saline Flush) 10 ml FLUSH ONETIME ONE Stop: 04/11/19 13:49 Last Admin: 04/11/19 14:07 Dose: 10 ml - Exam Quality Assessment: DVT Prophylaxis General: Alert, Oriented, Cooperative, Mild Distress Lungs: Clear to Auscultation, Normal Respiratory Effort Cardiovascular: Regular Rate, Regular Rhythm, No Murmurs GI/Abdominal Exam: Soft, Non-Tender, No Organomegaly, No Distention - Problem List Review Problem List Initiated/Reviewed/Updated: Yes - My Orders Last 24 Hours: My Active Orders 04/12/19 17:29 Convert IV to Saline Lock [OM.PC] Routine - Plan Plan:: ASSESSMENT AND RECOMMENDATIONS RECURRENT C. DIFFICILE DIARRHEA-recent episode within the past month, treated with metronidazole. Now has experienced recurrent symptoms following her recent cholecystectomy. Improved since admission with less diarrhea and stools becoming slowly more formed. No significant abdominal pain or temperature elevation -Saline lock IV -Continue oral vancomycin 125 mg by mouth every 6 hours 14 days -Probiotic therapy twice daily -Consider referral to gastroenterology for stool transplant if she has another recurrent episode STATUS POST RECENT CHOLECYSTECTOMY -Ongoing postoperative care per Dr. White
[2019-04-13] MEDS: Pantoprazole 40 MG Tab.CR PO SCH (15:31)
[2019-04-14] MEDS: Vancomycin 250 MG/5 ML ML Oral Solution PO SCH ×2 (06:44→10:19)
[2019-04-14] MEDS ORDERED: Levothyroxine 25 MCG Tab PO SCH (07:30)
[2019-04-14] MEDS: Furosemide 40 MG Tab PO SCH (09:23)
[2019-04-14] MEDS: Lactobacillus Rhamnosus GG (Probiotic) Cap PO SCH (09:23)
[2019-04-14] MEDS: Allopurinol 300 MG Tab PO SCH (09:23)
[2019-04-14] MEDS: Losartan 50 MG Tab PO SCH (09:23)
--- NOTE | 2019-04-14 12:49 | CRLUS ---
INDICATION: Left foot swelling TECHNIQUE: A compression venous ultrasound exam was performed of the left lower extremity using silva-scale imaging, color Doppler and spectral Doppler analysis. FINDINGS: Sonographic imaging of the left lower extremity demonstrates normal compressibility and color Doppler venous blood flow within the common femoral vein, deep femoral vein, and the proximal greater saphenous vein. Within the thigh, the proximal and mid femoral vein is patent and compressible. The left distal femoral vein is poorly visualized. Normal compressibility of the left peroneal vein. The left posterior tibial vein is nonvisualized There is thrombus in the popliteal vein which is noncompressible At a lower level, the popliteal and posterior tibial veins also show normal compressibility and color Doppler venous blood flow. Limited imaging of the contralateral groin demonstrates a normal spectral waveform and color Doppler venous blood flow within the right common femoral vein. Fluid collection in the left popliteal fossa measuring 2.5 by 4.4 x 1.5 centimeters likely reflects a Baldwin cyst. IMPRESSION: Deep venous thrombus within the left popliteal vein. Left distal femoral vein is poorly seen. Left posterior tibial vein is poorly seen. 4.4 x 2.5 x 1.5 centimeter left popliteal cyst. Results were given to Dr. Sommers by the core shaper top on 04/14/2019 at the termination of the study. Dictated by Toshia Oneal MD @ Apr 14 2019 12:43PM Signed by Dr. Toshia Oneal @ Apr 14 2019 12:47PM
--- NOTE | 2019-04-14 13:28 | PCM.DCSUM1 ---
Discharge Summary - Hospital Course Brief History: Ms. Hood is a 68-year-old woman who was admitted as a direct admission from clinic with increased weakness and diarrhea secondary to recurrent C. difficile colitis. - Discharge Data Discharge Date: 04/14/19 Discharge Disposition: Home, Self-Care 01 Condition: Fair - Discharge Diagnosis/Problem(s) (1) Clostridium difficile colitis SNOMED Code(s): 889847467 ICD Code: A04.72 - ENTEROCOLITIS D/T CLOSTRIDIUM DIFFICILE, NOT SPCF RECUR Status: Acute Current Visit: Yes (2) DVT of axillary vein, acute left SNOMED Code(s): 061153291875968 ICD Code: I82.A12 - ACUTE EMBOLISM AND THROMBOSIS OF LEFT AXILLARY VEIN Status: Acute Current Visit: Yes (3) Lymphedema of both lower extremities SNOMED Code(s): 74399679435205826 ICD Code: I89.0 - LYMPHEDEMA, NOT ELSEWHERE CLASSIFIED Status: Acute Priority: High Current Visit: No - Patient Summary/Data Consults: Consultations 04/11/19 13:06 Consult to Physician [CONS] Routine Consulting Provider: Josué Sommers Call Completed to Consulting Physician: Yes Reason for Consult: weakness,dehydration diarrhea Hospital Course: Ms. Hood is a 68-year-old woman who was admitted as a direct admission from the clinic with recurrent diarrhea, weakness, and anorexia, secondary to recurrent C. difficile colitis. She was first hospitalized at this facility with mild pancreatitis. It was felt likely that it was secondary to underlying gallbladder disease, extensive evaluation of her gallbladder was negative at that time. She had received IV antibiotics during that hospitalization. About a week after discharge to home she developed diarrhea which was evaluated and found to be positive for C. difficile infection. She received a course of antibiotic therapy with metronidazole and symptoms resolved. She then began to experience more right upper quadrant pain and was seen for follow-up. On that evaluation she was found to have evidence of under lying gallbladder disease and did undergo a laparoscopic cholecystectomy just over a week ago. She was discharged home and about 2 days after discharge began to experience recurrent diarrhea this was persistent over the past 6 days, she has become progressively more weak with very poor oral intake. She was evaluated at the clinic today white blood cell count was found to be elevated. Stool for C. difficile is positive. CT scan of the abdomen and pelvis showed no acute abnormalities to explain symptoms other than inflammation in the colon. On admission she was started on oral vancomycin 125 mg every 6 hours. She initially was given some IV fluids for hydration but this was stopped the day after admission. Over the next few days of hospitalization she experienced resolution of her diarrhea and stools became more formed. Prior to discharge she reported that she noted increased swelling of her left lower extremity over the past few weeks. Venous Doppler study was obtained and showed evidence of deep vein thrombosis. This DVT was present on admission and did not develop during this hospitalization, edema in the left leg has been present for the past few weeks. We discussed options for management of her deep vein thrombosis including warfarin with Lovenox overlap therapy versus Eliquis. She did opt for treatment with Eliquis and will be treated with 10 mg twice daily for the first 7 days, then 7 mg twice daily thereafter for a total duration of treatment of 3 months. Because of her increased peripheral edema her furosemide dose will be increased to 40 mg twice daily. Follow-up appointment has been scheduled with her primary care provider within one week as well as a follow-up appointment with Dr. White. Activity will be as tolerated and she will be on a 2 g sodium diet. - Patient Instructions Diet: Low Sodium Activity: As Tolerated Other/Special Instructions: Patient already has follow-up appointment scheduled with Dr. White. Please schedule follow-up appointment with primary care provider Alesha Arana within 1 week. - Discharge Plan *PRESCRIPTION DRUG MONITORING PROGRAM REVIEWED*: Not Applicable *COPY OF PRESCRIPTION DRUG MONITORING REPORT IN PATIENT WILLIE: Not Applicable Prescriptions/Med Rec: Apixaban [Eliquis] 10 mg PO BID #60 tablet Vancomycin [Vancocin 250 MG/5 ML Soln] 125 mg PO QID #110 ml Home Medications: Home Meds Acetaminophen [Tylenol Arthritis] 650 mg PO TID PRN 03/27/18 [History] Allopurinol [Zyloprim] 150 mg PO DAILY 03/27/18 [History] Cholecalciferol (Vitamin D3) [D3 Dots] 2,000 unit PO DAILY 03/27/18 [History] Levothyroxine Sodium [Synthroid] 25 mcg PO ASDIRECTED 03/27/18 [History] Losartan Potassium [Cozaar] 100 mg PO DAILY 03/27/18 [History] [place]-3/DHA/Epa/Fish Oil [[place]-3 Fish Oil 1,000 MG Sfgl] 1 cap PO DAILY [History] Lactobacillus Rhamnosus GG [Culturelle] 1 cap PO BID #60 cap 03/02/19 [Rx] Levothyroxine Sodium [Synthroid] 37.5 mcg PO ASDIRECTED 04/02/19 [History] Acetaminophen/oxyCODONE [Percocet 325-5 MG] 1 tab PO Q4HR PRN #42 tablet [Rx] Apixaban [Eliquis] 10 mg PO BID #60 tablet 04/14/19 [Rx] Furosemide 40 mg PO BID #60 04/14/19 [Rx] Vancomycin [Vancocin 250 MG/5 ML Soln] 125 mg PO QID #110 ml 04/14/19 [Rx] - Discharge Summary/Plan Comment DC Time >30 min.: No - Patient Data Vitals - Most Recent: Last Vital Signs Temp 97.9 F 04/14/19 11:00 Pulse 59 L 04/14/19 11:00 Resp 18 04/14/19 11:00 BP 161/72 H 04/14/19 11:00 Pulse Ox 96 04/14/19 11:00 Weight - Most Recent: 275 lb I&O - Last 24 hours: Intake & Output 04/13/19 04/14/19 04/14/19 22:59 06:59 14:59 Intake Total 440 480 240 Balance 440 480 240 MATTHEW Results - Last 24 hrs: Microbiology 04/11/19 14:48 Urine Culture - Final Urine, Clean Catch MIXED PACHECO DAY 2 Med Orders - Current: Current Medications Acetaminophen (Tylenol) 325 mg PO Q4H PRN PRN Reason: FEVER/PAIN Last Admin: 04/12/19 21:39 Dose: 325 mg Acetaminophen (Tylenol) 650 mg RECTAL Q4H PRN PRN Reason: FEVER/PAIN Allopurinol (Zyloprim) 150 mg PO DAILY [facility] Last Admin: 04/14/19 09:23 Dose: 150 mg Furosemide (Lasix) 40 mg PO DAILY [facility] Last Admin: 04/14/19 09:23 Dose: 40 mg Lactobacillus Rhamnosus (Culturelle) 1 cap PO BID [facility] Last Admin: 04/14/19 09:23 Dose: 1 cap Levothyroxine Sodium (Levothyroxine) 37.5 mcg PO SuTuThSa@0730 [facility] Last Admin: 05/18/19 07:21 Dose: 37.5 mcg Levothyroxine Sodium (Levothyroxine) 25 mcg PO MoWeFr@0730 [facility] Last Admin: 04/13/19 07:52 Dose: 25 mcg Losartan Potassium (Cozaar) 100 mg PO DAILY [facility] Last Admin: 04/14/19 09:23 Dose: 100 mg Pantoprazole Sodium (Protonix) 40 mg PO Q24H [facility] Last Admin: 04/13/19 15:31 Dose: 40 mg Vancomycin HCl (Vancocin 250 Mg/5 Ml Soln) 125 mg PO QID [facility] Stop: 04/25/19 16:01 Last Admin: 04/14/19 10:19 Dose: 125 mg Discontinued Medications Dextrose/Lactated Ringer's (Dextrose 5%-Lactated Ringers) 1,000 mls @ 100 mls/ hr IV ASDIRECTED [facility] Last Admin: 04/11/19 22:52 Dose: 100 mls/hr Magnesium Sulfate 2 gm/ Premix 50 mls @ 25 mls/hr IV Q6H [facility] Stop: 04/13/19 09:59 Last Admin: 04/13/19 07:53 Dose: 25 mls/hr Potassium Chloride 20 meq/Lidocaine HCl 2 ml/ Sodium Chloride 112 mls @ 56 mls/ hr IV Q2H [facility] Stop: 04/11/19 18:29 Last Admin: 04/11/19 18:28 Dose: 56 mls/hr Sodium Chloride (Normal Saline) 85 mls @ 3 mls/sec IV ASDIRECTED [facility] Stop: 04/11/19 14:01 Last Admin: 04/11/19 14:08 Dose: 3 mls/sec Potassium Chloride 40 meq/ (Premix) 100 mls @ 25 mls/hr IV ONETIME ONE Stop: 04/11/19 23:38 Last Admin: 04/11/19 21:01 Dose: 25 mls/hr Iopamidol (Isovue-300 (61%)) 150 ml IV . DIRECTED [facility] Stop: 04/11/19 14:01 Last Admin: 04/11/19 14:07 Dose: 150 ml Lactobacillus Rhamnosus (Culturelle) 1 cap PO BID [facility] Levothyroxine Sodium (Levothyroxine) 25 mcg PO ACBREAKFAST [facility] Last Admin: 04/12/19 07:52 Dose: 25 mcg Levothyroxine Sodium (Levothyroxine) 12.5 mcg PO ACBREAKFAST ONE Stop: 04/12/19 09:01 Last Admin: 04/12/19 09:33 Dose: 12.5 mcg Lidocaine HCl (Xylocaine-Mpf 1%) 4 ml INJECT ONETIME ONE Stop: 04/11/19 20:42 Last Admin: 04/11/19 21:02 Dose: 4 ml Pantoprazole Sodium (Protonix Iv) 40 mg IV Q24H [facility] Last Admin: 04/11/19 14:35 Dose: 40 mg Potassium Chloride (Klor-Con M20) 40 meq PO ONETIME ONE Stop: 04/11/19 14:01 Last Admin: 04/11/19 14:35 Dose: 40 meq Potassium Chloride (Klor-Con M20) 40 meq PO ONETIME ONE Stop: 04/11/19 19:40 Last Admin: 04/11/19 21:06 Dose: 40 meq Potassium Chloride (Klor-Con M20) 40 meq PO ONETIME ONE Stop: 04/12/19 09:01 Last Admin: 04/12/19 09:35 Dose: 40 meq Sodium Chloride (Saline Flush) 10 ml FLUSH ONETIME ONE Stop: 04/11/19 13:49 Last Admin: 04/11/19 14:07 Dose: 10 ml - Exam Quality Assessment: Reports: DVT Prophylaxis General: Reports: Alert, Oriented, Cooperative, No Acute Distress Lungs: Reports: Clear to Auscultation, Normal Respiratory Effort, Decreased Breath Sounds Cardiovascular: Reports: Regular Rate, Regular Rhythm, No Murmurs GI/Abdominal Exam: Soft, Non-Tender, No Organomegaly, No Distention Extremities: Non-Tender, Pedal Edema
== END 2019-04-14 14:06 | disposition home or self-care (01) | DRG 372 ==
LOC: JP.MS 12:44
PROVIDERS: ADMIT Surgery; ATTEND Surgery
DX: A04.71 Enterocolitis due to Clostridium difficile, recurrent (principal); Z68.43 Body mass index [BMI] 50.0-59.9, adult; I82.A12 Acute embolism and thrombosis of left axillary vein; E86.0 Dehydration; E83.42 Hypomagnesemia; E87.6 Hypokalemia; I10 Essential (primary) hypertension; E03.9 Hypothyroidism, unspecified; Z98.890 Other specified postprocedural states; E66.9 Obesity, unspecified; M54.9 Dorsalgia, unspecified; G89.29 Other chronic pain; E55.9 Vitamin D deficiency, unspecified; E78.00 Pure hypercholesterolemia, unspecified; H54.7 Unspecified visual loss; I89.0 Lymphedema, not elsewhere classified; L71.9 Rosacea, unspecified; M17.0 Bilateral primary osteoarthritis of knee; Z88.8 Allergy status to other drugs, medicaments and biological substances
CPT/HCPCS: 36415; 71046; 74177; 80048; 80053; 81001; 83735; 84132; 85025; 87086; 93971-LT; A9270-GY; C9113; J2001; J3475; J3480; J7030; J7042

== ENCOUNTER 2019-04-20 17:50 | Emergency (ER) | payer MEDICARE ==
--- NOTE | 2019-04-20 18:37 | EDM.PDOC ---
ED HPI GENERAL MEDICAL PROBLEM - General Chief Complaint: Abdominal Pain Stated Complaint: SENT BY [facility] Time Seen by Provider: 04/20/19 18:29 Source of Information: Reports: Patient, RN Notes Reviewed History Limitations: Reports: No Limitations - History of Present Illness INITIAL COMMENTS - FREE TEXT/NARRATIVE: 5-year-old female presents emergency department today complaint of abdominal pain, she states she has had a rough spring admitted for pancreatitis has had a cholecystectomy unfortunately she ended up with Clostridium difficile has been on oral vancomycin she has 4 doses left. She notices about 30 minutes after she takes the oral vancomycin that she gets waves of nausea with cramping abdominal pain she does not have any significant flatulence. States her bowel movements are soft and appeared to be normal Abdomen Pain Score (Numeric/FACES): 7 - Related Data Allergies Allergy/AdvReac Type Severity Reaction Status Date / Time lisinopril AdvReac Cough Verified 04/20/19 18:28 Home Meds: Home Meds Acetaminophen [Tylenol Arthritis] 650 mg PO TID PRN 03/27/18 [History] Allopurinol [Zyloprim] 150 mg PO DAILY 03/27/18 [History] Cholecalciferol (Vitamin D3) [D3 Dots] 2,000 unit PO DAILY 03/27/18 [History] Levothyroxine Sodium [Synthroid] 25 mcg PO ASDIRECTED 03/27/18 [History] Losartan Potassium [Cozaar] 100 mg PO DAILY 03/27/18 [History] [place]-3/DHA/Epa/Fish Oil [[place]-3 Fish Oil 1,000 MG Sfgl] 1 cap PO DAILY [History] Lactobacillus Rhamnosus GG [Culturelle] 1 cap PO BID #60 cap 03/02/19 [Rx] Levothyroxine Sodium [Synthroid] 37.5 mcg PO ASDIRECTED 04/02/19 [History] Acetaminophen/oxyCODONE [Percocet 325-5 MG] 1 tab PO Q4HR PRN #42 tablet [Rx] Apixaban [Eliquis] 10 mg PO BID #60 tablet 04/14/19 [Rx] Furosemide 40 mg PO BID #60 04/14/19 [Rx] Vancomycin [Vancocin 250 MG/5 ML Soln] 125 mg PO QID #110 ml 04/14/19 [Rx] Past Medical History HEENT History: Reports: Impaired Vision Cardiovascular History: Reports: High Cholesterol, Hypertension Gastrointestinal History: Reports: Pancreatitis [employer] History: Reports: , Spontaneous Musculoskeletal History: Reports: Arthritis, Back Pain, Chronic Endocrine/Metabolic History: Reports: Hypothyroidism, Obesity/BMI 30+, Vitamin D Deficiency, Other (See Below) Other Endocrine/Metabolic History: para thyroid removed - Infectious Disease History Infectious Disease History: Reports: C-Difficile - Past Surgical History Cardiovascular Surgical History: Reports: None GI Surgical History: Reports: Appendectomy, Cholecystectomy, Colonoscopy, Hernia , Abdominal Other GI Surgeries/Procedures: c-diff Female Surgical History: Reports: Section Endocrine Surgical History: Reports: None Neurological Surgical History: Reports: Other (See Below) Other Neurological Surgeries/Procedures: back surgery for spinal stenosis Musculoskeletal Surgical History: Reports: Hip Replacement Social & Family History - Family History Family Medical History: Noncontributory - Tobacco Use Smoking Status *Q: Never Smoker - Caffeine Use Caffeine Use: Reports: Coffee Other Caffeine Use: 1 cup day Caffeine Use Comment: none for 2 months - Recreational Drug Use Recreational Drug Use: No - Living Situation & Occupation Living situation: Reports: , with Family (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, 9 children, lives in [place], [place].) Occupation: Retired ED ROS GENERAL - Review of Systems Review Of Systems: See Below Constitutional: Reports: No Symptoms HEENT: Reports: No Symptoms Respiratory: Reports: No Symptoms Cardiovascular: Reports: No Symptoms GI/Abdominal: Reports: Abdominal Pain, Nausea, Vomiting (Dry heaves). Denies: Constipation, Diarrhea : Reports: No Symptoms ED EXAM, GI/ABD - Physical Exam Exam: See Below Exam Limited By: No Limitations General Appearance: Alert, WD/WN, No Apparent Distress Respiratory/Chest: No Respiratory Distress, Lungs Clear, Normal Breath Sounds, No Accessory Muscle Use, Chest Non-Tender Cardiovascular: Regular Rate, Rhythm, No Murmur GI/Abdominal Exam: Soft, Non-Tender Course - Vital Signs Last Recorded V/S: Last Vital Signs Temp 99.5 F 04/20/19 18:21 Pulse 84 04/20/19 18:21 Resp 16 04/20/19 18:21 BP 161/61 H 04/20/19 18:21 Pulse Ox 93 L 04/20/19 18:21 - Orders/Labs/Meds Labs: Laboratory Tests 04/20/19 04/20/19 Range/Units 18:33 18:33 WBC 14.4 H (4.5-11.0) K/uL RBC 4.33 (3.30-5.50) M/uL Hgb 13.4 (12.0-15.0) g/dL Hct 39.9 (36.0-48.0) % MCV 92 (80-98) fL MCH 31 (27-31) pg MCHC 34 (32-36) % Plt Count 230 (150-400) K/uL Neut % (Auto) 78 H (36-66) % Lymph % (Auto) 11 L (24-44) % [place] % (Auto) 10 H (2-6) % Eos % (Auto) 0 L (2-4) % Baso % (Auto) 0 (0-1) % Sodium 135 L (140-148) mmol/L Potassium 3.3 L (3.6-5.2) mmol/L Chloride 99 L (100-108) mmol/L Carbon Dioxide 27 (21-32) mmol/L Anion Gap 12.3 (5.0-14.0) mmol/L BUN 15 D (7-18) mg/dL Creatinine 0.9 (0.6-1.0) mg/dL Est Cr Clr Drug Dosing 44.95 mL/min Estimated GFR (MDRD) > 60 (>60) Glucose 116 H (74-106) mg/dL Calcium 9.1 (8.5-10.1) mg/dL Total Bilirubin 1.5 H (0.2-1.0) mg/dL AST 21 (15-37) U/L ALT 23 (12-78) U/L Alkaline Phosphatase 90 (46-116) U/L Total Protein 6.8 (6.4-8.2) g/dL Albumin 3.0 L (3.4-5.0) g/dL Globulin 3.8 H (2.3-3.5) g/dL Albumin/Globulin Ratio 0.8 L (1.2-2.2) Departure - Departure Time of Disposition: 19:44 Disposition: Home, Self-Care 01 Condition: Fair Clinical Impression: Abdominal pain Qualifiers: Abdominal location: generalized Qualified Code(s): R10.84 - Generalized abdominal pain - Discharge Information Referrals: Mery Arana PA [Primary Care Provider] - Forms: ED Department Discharge Additional Instructions: Try the Zofran as needed for nausea and vomiting symptoms, try the hyocyamine as needed for the abdominal pain please keep your follow-up appointment with your primary care on Tuesday of next week - Assessment/Plan Plan: Assessment Acuity = acute Site and laterality = abdominal pain with nausea Etiology = probably related to by mouth vancomycin Manifestations = none Location of injury = Home Lab values = CBC, BMP complaint from the abdomen showed no acute process Plan I did review lab work results with her plan is she is can try Zofran ODT 4 mg 1 tab by mouth 3 times a day when necessary total #10 for nausea symptoms and Anaspaz 0.125 mg one tab by mouth every 4 hours when necessary total #10 for the abdominal pain she has a follow-up appointment with her primary care on Tuesday of next week This note was dictated using [employer] voice recognition software please call with any questions on syntax or grammar.
--- NOTE | 2019-04-20 19:30 | CRLCR ---
INDICATION: Abdominal pain. COMPARISON: CT of the abdomen and pelvis from 04/11/2019 FINDINGS: A single AP erect view of the abdomen was obtained. The bowel gas pattern is unremarkable with nothing seen to suggest obstruction or ileus. There is no sign of dilatation of the small bowel or colon. There is no free air. Soft tissue planes are preserved and there is no sign of a mass. No calcifications of concern are identified. Again seen are components of a right total hip prosthesis in anatomic alignment with no sign of fracture, loosening, or dislocation. Again seen is mild primary osteoarthritis of the left hip. There is no change and mild scoliosis of the thoracolumbar spine convex towards the right. The lung bases are clear. IMPRESSION: No sign of obstruction or ileus. No change in mild primary osteoarthritis of the left hip and satisfactory positioning of a right total hip prosthesis. Dictated by Alberto Tucker MD @ Apr 20 2019 7:28PM Signed by Dr. Alberto Tucker @ Apr 20 2019 7:29PM
== END 2019-04-20 20:01 | disposition home or self-care (01) ==
LOC: JP.ED 17:50
DX: R10.84 Generalized abdominal pain (principal); R11.0 Nausea; I10 Essential (primary) hypertension; E78.00 Pure hypercholesterolemia, unspecified; E03.9 Hypothyroidism, unspecified; Z79.899 Other long term (current) drug therapy; Z88.8 Allergy status to other drugs, medicaments and biological substances
CPT/HCPCS: 36415; 74018; 80053; 85025; 99284-25

== ENCOUNTER 2020-01-07 05:52 | Inpatient (IN) | payer MEDICARE ==
[2020-01-07] MEDS ORDERED: Povidone-Iodine 10% Soln 118.25 ML Bottle ONE (06:42)
[2020-01-07] MEDS: Nozin Nasal Sanitizer NASBOTH SCH ×3 (06:42→21:17)
[2020-01-07] MEDS: Lactated Ringers 1,000 ML IV SCH ×2 (06:45→20:00)
[2020-01-07] MEDS ORDERED: Propofol 200 MG/20 ML SDV ONE (07:21)
[2020-01-07] MEDS ORDERED: fentaNYL 100 MCG/2 ML SDV ONE (07:21)
[2020-01-07] MEDS ORDERED: Midazolam 1 MG/ML 2 ML SDV ONE (07:21)
[2020-01-07] MEDS ORDERED: ceFAZolin 2 GM in Premix Bag 1 BAG IV ONE (07:30)
[2020-01-07] MEDS: Tranexamic Acid 1,000 MG in Sodium Chloride 0.9% 50 ML IV ONE ×2 (08:00→12:59)
[2020-01-07] MEDS ORDERED: fentaNYL 250 MCG/5 ML SDV ONE (08:36)
[2020-01-07] MEDS ORDERED: Bupivacaine 0.5% 30 ML SDV ONE (08:55)
[2020-01-07] MEDS ORDERED: Ondansetron 4 MG/2 ML SDV ONE (10:00)
[2020-01-07] MEDS ORDERED: Glycopyrrolate 0.2 MG/ML 5 ML MDV ONE (10:00)
[2020-01-07] MEDS ORDERED: Neostigmine Methylsulfate 1 MG/ML 5 ML Syringe ONE (10:00)
[2020-01-07] MEDS ORDERED: Dexamethasone 4 MG/ML SDV ONE (10:00)
[2020-01-07] MEDS ORDERED: Rocuronium 50 MG/5 ML Vial ONE (10:00)
[2020-01-07] MEDS ORDERED: Lactated Ringers 1,000 ML ONE (10:01)
[2020-01-07] MEDS ORDERED: Ondansetron 4 MG/2 ML SDV IVPUSH PRN (10:20)
[2020-01-07] MEDS ORDERED: Acetaminophen 325 MG Tab PO PRN (10:20)
[2020-01-07] MEDS ORDERED: Magnesium Hydroxide 400 MG/5 ML Susp 30 ML Cup PO PRN (10:20)
[2020-01-07] MEDS ORDERED: Acetaminophen/HYDROcodone 325-5 MG Tab PO PRN (10:20)
[2020-01-07] MEDS ORDERED: Sodium Chloride 0.9% 1,000 ML IV SCH (10:30)
[2020-01-07] MEDS ORDERED: Ketorolac 30 MG/ML SDV IVPUSH SCH (10:30)
[2020-01-07] MEDS ORDERED: ceFAZolin 1 GM in Sodium Chloride 0.9% 50 ML IV SCH (10:30)
[2020-01-07] MEDS ORDERED: Levothyroxine 25 MCG Tab PO SCH (10:45)
[2020-01-07] MEDS ORDERED: fentaNYL 100 MCG/2 ML SDV IVPUSH ONE ×2 (10:47→11:04)
[2020-01-07] MEDS ORDERED: hydrOXYzine HCL 100 MG/2 ML SDV IM ONE (10:48)
[2020-01-07] MEDS ORDERED: Labetalol 20 MG/4 ML Syringe IVPUSH ONE (11:07)
[2020-01-07] MEDS: Morphine 2 MG/ML Syringe IVPUSH PRN ×2 (12:29→13:44)
--- NOTE | 2020-01-07 13:22 | CR ---
Knee 1V or 2V Lt CLINICAL HISTORY: Postop FINDINGS: Patient is status post total right knee arthroplasty. Components appear well seated. There is intra-articular and subcutaneous air. Impression: Status post total knee arthroplasty
[2020-01-07] MEDS: ceFAZolin 1 GM in Premix Bag 1 BAG IV SCH ×2 (13:47→21:29)
[2020-01-07] MEDS: Ketorolac 30 MG/ML SDV IVPUSH SCH ×2 (13:49→21:17)
[2020-01-07] MEDS: Acetaminophen/oxyCODONE 325-5 MG Tab PO PRN ×2 (14:44→21:16)
[2020-01-07] MEDS: Hypromellose 0.3% Ophth Soln 15 ML Bottle EYEBOTH SCH ×2 (15:35→21:18)
[2020-01-07] MEDS ORDERED: Non-Formulary Medication 1 Each (Mineral Oil, Light/Mineral Oil [Soothe Xp Eye Drops] 1 DR EYEBOTH SCH (16:00)
[2020-01-07] MEDS ORDERED: Non-Formulary Medication 1 Each (Latanoprost/Pf [Latanoprost 0.005% Eye Drop] 1 DROP) EYEBOTH SCH (21:00)
[2020-01-07] MEDS ORDERED: LACTOBACILLUS ACIDOPHILUS PO SCH (21:00)
[2020-01-07] MEDS ORDERED: Docusate Sodium 100 MG Cap PO SCH (21:00)
[2020-01-07] MEDS ORDERED: DORZOLAMIDE HCL EYEBOTH SCH (21:00)
[2020-01-07] MEDS: Timolol Maleate 0.5% Ophth Soln 5 ML Bottle EYEBOTH SCH (21:15)
[2020-01-07] MEDS: Dorzolamide 2% Ophth Soln 10 ML Bottle EYEBOTH SCH (21:15)
[2020-01-07] MEDS: Latanoprost 0.005% Ophth Soln 2.5 ML Bottle EYEBOTH SCH (21:15)
[2020-01-07] MEDS: Brimonidine 0.2% Ophth Soln 5 ML Bottle EYEBOTH SCH (21:15)
[2020-01-07] MEDS: Lactobacillus Rhamnosus GG (Probiotic) Cap PO SCH (21:16)
[2020-01-07] MEDS: Docusate Sodium 100 MG Cap PO SCH (21:17)
[2020-01-08] MEDS: Ketorolac 30 MG/ML SDV IVPUSH SCH ×4 (05:10→22:26)
[2020-01-08] MEDS: ceFAZolin 1 GM in Premix Bag 1 BAG IV SCH (05:10)
[2020-01-08] MEDS: Acetaminophen/oxyCODONE 325-5 MG Tab PO PRN ×5 (05:24→22:00)
[2020-01-08] MEDS: Hypromellose 0.3% Ophth Soln 15 ML Bottle EYEBOTH SCH ×4 (06:10→22:03)
[2020-01-08] MEDS: Levothyroxine 25 MCG Tab PO SCH (07:33)
[2020-01-08] MEDS ORDERED: Non-Formulary Medication 1 Each (Losartan Potassium [Cozaar] 100 MG) PO SCH (09:00)
[2020-01-08] MEDS ORDERED: Allopurinol 300 MG Tab PO SCH (09:00)
[2020-01-08] MEDS ORDERED: Enoxaparin 30 MG/0.3 ML Syringe SUBCUT SCH (09:00)
[2020-01-08] MEDS: Nozin Nasal Sanitizer NASBOTH SCH ×2 (09:03→20:30)
[2020-01-08] MEDS: Lactobacillus Rhamnosus GG (Probiotic) Cap PO SCH ×2 (09:04→20:30)
[2020-01-08] MEDS: Brimonidine 0.2% Ophth Soln 5 ML Bottle EYEBOTH SCH ×2 (09:04→20:28)
[2020-01-08] MEDS: Docusate Sodium 100 MG Cap PO SCH ×2 (09:04→20:31)
[2020-01-08] MEDS: Enoxaparin 30 MG/0.3 ML Syringe SUBCUT SCH (09:05)
[2020-01-08] MEDS: Timolol Maleate 0.5% Ophth Soln 5 ML Bottle EYEBOTH SCH ×2 (09:05→20:28)
[2020-01-08] MEDS: Dorzolamide 2% Ophth Soln 10 ML Bottle EYEBOTH SCH ×2 (09:09→20:28)
[2020-01-08] MEDS: Allopurinol 300 MG Tab PO SCH (09:10)
[2020-01-08] MEDS: Losartan 50 MG Tab PO SCH (09:10)
[2020-01-08] MEDS: Furosemide 40 MG Tab PO SCH (09:49)
[2020-01-08] MEDS ORDERED: Levothyroxine 25 MCG Tab PO SCH (10:38)
[2020-01-08] MEDS: Latanoprost 0.005% Ophth Soln 2.5 ML Bottle EYEBOTH SCH (20:29)
[2020-01-09] MEDS: Acetaminophen/oxyCODONE 325-5 MG Tab PO PRN ×4 (04:01→20:24)
[2020-01-09] MEDS: Hypromellose 0.3% Ophth Soln 15 ML Bottle EYEBOTH SCH ×4 (05:32→23:22)
[2020-01-09] MEDS: Ketorolac 30 MG/ML SDV IVPUSH SCH (05:32)
[2020-01-09] MEDS ORDERED: Levothyroxine 25 MCG Tab PO SCH (07:30)
[2020-01-09] MEDS: Brimonidine 0.2% Ophth Soln 5 ML Bottle EYEBOTH SCH ×2 (08:23→20:26)
[2020-01-09] MEDS: Dorzolamide 2% Ophth Soln 10 ML Bottle EYEBOTH SCH ×2 (08:25→20:27)
[2020-01-09] MEDS: Timolol Maleate 0.5% Ophth Soln 5 ML Bottle EYEBOTH SCH ×2 (08:25→20:27)
[2020-01-09] MEDS: Docusate Sodium 100 MG Cap PO SCH ×2 (08:26→20:26)
[2020-01-09] MEDS: Losartan 50 MG Tab PO SCH (08:26)
[2020-01-09] MEDS: Furosemide 40 MG Tab PO SCH (08:28)
[2020-01-09] MEDS: Lactobacillus Rhamnosus GG (Probiotic) Cap PO SCH ×2 (08:28→20:27)
[2020-01-09] MEDS: Enoxaparin 30 MG/0.3 ML Syringe SUBCUT SCH (08:29)
[2020-01-09] MEDS: Allopurinol 300 MG Tab PO SCH (08:30)
[2020-01-09] MEDS: Nozin Nasal Sanitizer NASBOTH SCH ×2 (08:34→20:25)
[2020-01-09] MEDS: Latanoprost 0.005% Ophth Soln 2.5 ML Bottle EYEBOTH SCH (20:27)
[2020-01-10] MEDS: Acetaminophen/oxyCODONE 325-5 MG Tab PO PRN ×3 (00:21→12:25)
[2020-01-10] MEDS: Levothyroxine 25 MCG Tab PO SCH (07:27)
[2020-01-10] MEDS: Hypromellose 0.3% Ophth Soln 15 ML Bottle EYEBOTH SCH ×2 (07:27→10:46)
[2020-01-10] MEDS: Nozin Nasal Sanitizer NASBOTH SCH (08:51)
[2020-01-10] MEDS: Allopurinol 300 MG Tab PO SCH (08:53)
[2020-01-10] MEDS: Losartan 50 MG Tab PO SCH (08:53)
[2020-01-10] MEDS: Docusate Sodium 100 MG Cap PO SCH (08:53)
[2020-01-10] MEDS: Lactobacillus Rhamnosus GG (Probiotic) Cap PO SCH (08:54)
[2020-01-10] MEDS: Enoxaparin 30 MG/0.3 ML Syringe SUBCUT SCH (08:54)
[2020-01-10] MEDS: Furosemide 40 MG Tab PO SCH (08:54)
--- NOTE | 2020-01-10 09:14 | PCM.DCSUM1 ---
Discharge Summary - Hospital Course HPI Initial Comments: 69 year old with lomg standing bilateral knee pain due to progressive OA admitted for left total knee. Diagnosis: Stroke: No Modified Morrow Scale: No Symptoms at All Modified Morrow Scale Score: 0 - Discharge Data Discharge Date: 01/10/20 Discharge Disposition: DC/Tfer to SNF 03 Condition: Good - Referral to Home Health Date of Face to Face Encounter: 01/10/20 Primary Care Physician: Sally Aldridge, DO - Discharge Diagnosis/Problem(s) (1) Status post total left knee replacement SNOMED Code(s): 7919986177202, [id number] ICD Code: Z96.652 - PRESENCE OF LEFT ARTIFICIAL KNEE JOINT Status: Acute Current Visit: Yes (2) Knee pain, bilateral SNOMED Code(s): 94695705 ICD Code: M25.561 - PAIN IN RIGHT KNEE; M25.562 - PAIN IN LEFT KNEE Status : Acute Current Visit: No Qualifiers: Chronicity: chronic (3) Lymphedema of both lower extremities SNOMED Code(s): 21974778908211110 ICD Code: I89.0 - LYMPHEDEMA, NOT ELSEWHERE CLASSIFIED Status: Chronic Priority: High Current Visit: No - Patient Summary/Data Consults: Consultations 01/07/20 10:20 Consult to Case Management/Laboratory Phlebotomist [CONS] Routine Comment: Physician Instructions: Service(s) to be Consulted: Case Management Reason for Consult: Plan for Discharge OT Evaluation and Treatment [CONS] Routine Please Evaluate and Treat. OT Reason for Consult: ADL's This query below is only for informational purposes and is not editable. PT Evaluation and Treatment [CONS] Routine Please Evaluate and Treat. PT Reason for Consult: Post op Ortho Surgery Special Instructions: WBAT and ROM This query below is only for informational purposes and is not editable. PT Evaluation and Treatment [CONS] Routine Please Evaluate and Treat. PT Reason for Consult: Post op Ortho Surgery Knee Pending Discharge: Yes, 1- 2 days Special Instructions: Schedule first outpatient PT appointment in 3-5 day post discharge. This query below is only for informational purposes and is not editable. Hospital Course: Admitted for left TKA, tolerated the procedure very well. Was able to progress with PT and was up in chair the day of surgery. Able to switch to po pain medications. Chavarria was discontinued and is voiding without difficulty. No nausea and bowels are moving. dressing removed prior to discharge. Continue PT /OT, not independent with transfers in and out of bed. Follow up in two weeks. - Patient Instructions Diet: Usual Diet as Tolerated Activity: Apply Ice, As Tolerated, Full Weight Bearing Showering/Bathing: May Shower Wound/Incision Care: Keep Operative Site/Wound Site Clean and Dry Notify Provider of: Fever, Increased Pain, Swelling and Redness, Drainage - Discharge Plan *PRESCRIPTION DRUG MONITORING PROGRAM REVIEWED*: No *COPY OF PRESCRIPTION DRUG MONITORING REPORT IN PATIENT WILLIE: No Prescriptions/Med Rec: oxyCODONE HCl/Acetaminophen [Percocet 5-325 mg Tablet] 2 each PO Q4HR PRN #50 tablet PRN Reason: Pain Enoxaparin Sodium [Lovenox] 30 mg SQ DAILY 28 Days #28 syringe Home Medications: Home Meds Acetaminophen [Tylenol Arthritis] 650 mg PO TID PRN 03/27/18 [History] Cholecalciferol (Vitamin D3) [D3 Dots] 2,000 unit PO DAILY 03/27/18 [History] Levothyroxine Sodium [Synthroid] 25 mcg PO MOWEFR 03/27/18 [History] Losartan Potassium [Cozaar] 100 mg PO DAILY 03/27/18 [History] Vidalia-3/DHA/Epa/Fish Oil [Vidalia-3 Fish Oil 1,000 MG Sfgl] 1 cap PO DAILY [History] allopurinoL [Zyloprim] 150 mg PO DAILY 03/27/18 [History] Levothyroxine Sodium [Synthroid] 37.5 mcg PO SUTUTHSA 04/02/19 [History] Amoxicillin 2,000 mg PO ASDIRECTED 11/08/19 [History] Furosemide 40 mg PO DAILY 11/08/19 [History] Lactobacillus Acidophilus [Probiotic] 1 cap PO BID 11/08/19 [History] Brimonidine Tartrate/Timolol [Combigan 0.2%-0.5% Eye Drops] 1 drop EYEBOTH BID 01/07/20 [History] Dorzolamide HCl/Pf [Dorzolamide 2% Eye Drop] 1 drop EYEBOTH BID 01/07/20 [ History] Latanoprost/Pf [Latanoprost 0.005% Eye Drop] 1 drop EYEBOTH BEDTIME 01/07/20 [ History] Mineral Oil, Light/Mineral Oil [Soothe Xp Eye Drops] 1 drop EYEBOTH QID [History] Enoxaparin Sodium [Lovenox] 30 mg SQ DAILY 28 Days #28 syringe 01/10/20 [Rx] oxyCODONE HCl/Acetaminophen [Percocet 5-325 mg Tablet] 2 each PO Q4HR PRN #50 tablet 01/10/20 [Rx] Oxygen Therapy Mode: Room Air Patient Handouts: Total Knee Replacement, Care After, [id number] - Discharge Summary/Plan Comment DC Time >30 min.: Yes - General Info Functional Status: Reports: Pain Controlled, Tolerating Diet, Ambulating, Urinating - Review of Systems General: Reports: No Symptoms HEENT: Reports: No Symptoms Pulmonary: Reports: No Symptoms Cardiovascular: Reports: No Symptoms Gastrointestinal: Reports: No Symptoms Genitourinary: Reports: No Symptoms Musculoskeletal: Reports: Leg Pain Skin: Reports: No Symptoms Neurological: Reports: No Symptoms Psychiatric: Reports: No Symptoms - Patient Data Vitals - Most Recent: Last Vital Signs Temp 36.9 C 01/10/20 07:31 Pulse 77 01/10/20 07:31 Resp 16 01/10/20 07:31 BP 141/51 H 01/10/20 08:53 Pulse Ox 94 L 01/10/20 07:31 Weight - Most Recent: 122.47 kg I&O - Last 24 hours: Intake & Output 01/09/20 01/10/20 01/10/20 22:59 06:59 14:59 Intake Total 400 550 Output Total 100 350 300 Balance 300 -350 250 Med Orders - Current: Current Medications Acetaminophen (Tylenol) 650 mg PO Q4H PRN PRN Reason: Pain/Fever Hydrocodone Bitart/Acetaminophen (Eden 325-5 Mg) 1 tab PO Q3H PRN PRN Reason: Pain Allopurinol (Zyloprim) 150 mg PO DAILY [facility] Last Admin: 01/10/20 08:53 Dose: 150 mg Artificial Tears (Genteal Mild To Moderate Ophth Soln) 0 ml EYEBOTH QID [facility] Last Admin: 01/10/20 07:27 Dose: 1 drop Bandage/Support Products ( Nasal Wine Steward) 1 applic NASBOTH BID [facility] Last Admin: 01/10/20 08:51 Dose: 1 applic Brimonidine Tartrate (Alphagan 0.2% Ophth Soln) 0 ml EYEBOTH BID [facility] Last Admin: 01/09/20 20:26 Dose: 1 drop Docusate Sodium (Colace) 100 mg PO BID [facility] Last Admin: 01/10/20 08:53 Dose: 100 mg Dorzolamide HCl (Trusopt 2% Ophth Soln) 0 ml EYEBOTH BID [facility] Last Admin: 01/09/20 20:27 Dose: 1 drop Enoxaparin Sodium (Lovenox) 30 mg SUBCUT DAILY [facility] Last Admin: 01/10/20 08:54 Dose: 30 mg Furosemide (Lasix) 40 mg PO DAILY [facility] Last Admin: 01/10/20 08:54 Dose: 20 mg Lactobacillus Rhamnosus (Culturelle) 1 cap PO BID [facility] Last Admin: 01/10/20 08:54 Dose: 1 cap Latanoprost (Xalatan 0.005% Ophth Soln) 0 ml EYEBOTH BEDTIME [facility] Last Admin: 01/09/20 20:27 Dose: 1 drop Levothyroxine Sodium (Levothyroxine) 25 mcg PO MoWeFr@0730 [facility] Last Admin: 01/09/20 07:30 Dose: 25 mcg Levothyroxine Sodium (Levothyroxine) 37.5 mcg PO SuTuThSa@0730 [facility] Last Admin: 01/10/20 07:27 Dose: 37.5 mcg Losartan Potassium (Cozaar) 100 mg PO DAILY [facility] Last Admin: 01/10/20 08:53 Dose: 100 mg Magnesium Hydroxide (Milk Of Magnesia) 30 ml PO BID PRN PRN Reason: Constipation Last Admin: 01/09/20 10:52 Dose: 30 ml Morphine Sulfate (Morphine) 2 mg IVPUSH Q1H PRN PRN Reason: Breakthrough Pain Last Admin: 01/07/20 13:44 Dose: 2 mg Ondansetron HCl (Zofran) 4 mg IVPUSH Q6H PRN PRN Reason: Nausea/Vomiting Oxycodone/Acetaminophen (Percocet 325-5 Mg) 1 - 2 tab PO Q4H PRN PRN Reason: Pain Last Admin: 01/10/20 07:36 Dose: 1 tab Timolol Maleate (Timoptic 0.5% Ophth Soln) 0 ml EYEBOTH BID [facility] Last Admin: 01/09/20 20:27 Dose: 1 drop Discontinued Medications Allopurinol (Zyloprim) 150 mg PO DAILY [facility] Bupivacaine HCl (Marcaine 0.5%) Confirm Administered Dose 30 ml .ROUTE .ST-MED ONE Stop: 01/07/20 08:56 Last Admin: 01/07/20 09:03 Dose: 20 ml Dexamethasone (Dexamethasone) Confirm Administered Dose 4 mg .ROUTE .STK-MED ONE Stop: 01/07/20 10:01 Docusate Sodium (Colace) 100 mg PO BID [facility] Enoxaparin Sodium (Lovenox) 30 mg SUBCUT DAILY [facility] Fentanyl (Sublimaze) Confirm Administered Dose 100 mcg .ROUTE .ST-MED ONE Stop: 01/07/20 07:22 Fentanyl (Sublimaze) Confirm Administered Dose 250 mcg .ROUTE .ST-MED ONE Stop: 01/07/20 08:37 Fentanyl (Sublimaze) 50 mcg IVPUSH ONETIME ONE Stop: 01/07/20 10:48 Last Admin: 01/07/20 10:54 Dose: 50 mcg Fentanyl (Sublimaze) 50 mcg IVPUSH ONETIME ONE Stop: 01/07/20 11:05 Last Admin: 01/07/20 11:20 Dose: 50 mcg Glycopyrrolate (Robinul) Confirm Administered Dose 1 mg .ROUTE .[facility] ONE Stop: 01/07/20 10:01 Hydroxyzine HCl (Vistaril) 100 mg IM ONETIME ONE Stop: 01/07/20 10:49 Last Admin: 01/07/20 10:55 Dose: 100 mg Cefazolin Sodium/Dextrose 2 gm (/ Premix) 50 mls @ 100 mls/hr IV ONETIME ONE Stop: 01/07/20 07:59 Last Admin: 01/07/20 07:37 Dose: 100 mls/hr Lactated Ringer's (Ringers, Lactated) 1,000 mls @ 75 mls/hr IV ASDIRECTED [facility] Last Admin: 01/07/20 20:00 Dose: 75 mls/hr Tranexamic Acid 1,000 mg/ (Sodium Chloride) 60 mls @ 240 mls/hr IV ONETIME ONE Stop: 01/07/20 07:44 Last Admin: 01/07/20 12:59 Dose: Not Given Lactated Ringer's (Ringers, Lactated) Confirm Administered Dose 1,000 mls @ as directed .ROUTE .STK-MED ONE Stop: 01/07/20 10:02 Sodium Chloride (Normal Saline) 1,000 mls @ 125 mls/hr IV ASDIRECTED [facility] Cefazolin Sodium/Dextrose 1 gm (/ Premix) 50 mls @ 100 mls/hr IV Q8H [facility] Stop: 01/08/20 06:29 Last Admin: 01/08/20 05:10 Dose: 100 mls/hr Ketorolac Tromethamine (Toradol) 15 mg IVPUSH Q8H [facility] Stop: 01/09/20 06:01 Last Admin: 01/09/20 05:32 Dose: 15 mg Labetalol HCl (Normodyne) 5 mg IVPUSH NOW ONE; Protocol Stop: 01/07/20 11:08 Last Admin: 01/07/20 11:13 Dose: 5 mg Levothyroxine Sodium (Levothyroxine) 25 mcg PO MOWEFR [facility] Last Admin: 01/07/20 14:00 Dose: Not Given Levothyroxine Sodium (Levothyroxine) 37.5 mcg PO SUTUTHSA [facility] Midazolam HCl (Versed 1 Mg/Ml) Confirm Administered Dose 2 mg .ROUTE .STK-MED ONE Stop: 01/07/20 07:22 Neostigmine Methylsulfate (Neostigmine) Confirm Administered Dose 5 mg .ROUTE .STK-MED ONE Stop: 01/07/20 10:01 Non-Formulary Medication (Brimonidine Tartrate/Timolol [Combigan 0.2%-0.5% Eye Drops]) 1 drop EYEBOTH BID [facility] Non-Formulary Medication (Dorzolamide Hcl/Pf [Dorzolamide 2% Eye Drop]) 1 drop EYEBOTH BID [facility] Non-Formulary Medication (Lactobacillus Acidophilus [Probiotic]) 1 cap PO BID [facility] Non-Formulary Medication (Latanoprost/Pf [Latanoprost 0.005% Eye Drop]) 1 drop EYEBOTH BEDTIME [facility] Non-Formulary Medication (Losartan Potassium [Cozaar]) 100 mg PO DAILY [facility] Non-Formulary Medication (Mineral Oil, Light/Mineral Oil [Soothe Xp Eye Drops]) 1 drop EYEBOTH QID [facility] Ondansetron HCl (Zofran) Confirm Administered Dose 4 mg .ROUTE .STK-MED ONE Stop: 01/07/20 10:01 Povidone Iodine (Betadine 10% Soln) Confirm Administered Dose 1 ml .ROUTE .STK- MED ONE Stop: 01/07/20 06:43 Last Admin: 01/07/20 09:04 Dose: 40 ml Propofol (Diprivan 20 Ml) Confirm Administered Dose 200 mg .ROUTE .STK-MED ONE Stop: 01/07/20 07:22 Rocuronium [place] (Zemuron) Confirm Administered Dose 50 mg .ROUTE .STK-MED ONE Stop: 01/07/20 10:01 - Exam General: Reports: Alert, Oriented HEENT: Reports: Pupils Equal, Pupils Reactive, EOMI, Mucous Membr. Moist/[place] Neck: Reports: Supple Lungs: Reports: Clear to Auscultation, Normal Respiratory Effort Cardiovascular: Reports: Regular Rate, Regular Rhythm GI/Abdominal Exam: Normal Bowel Sounds, Soft, Non-Tender, No Distention (Female) Exam: Deferred Rectal (Female) Exam: Deferred Back Exam: Reports: Normal Inspection Extremities: Joint Swelling, Leg Pain Skin: Reports: Warm, Dry Wound/Incisions: Reports: Healing Well Neurological: Reports: No New Focal Deficit Psy/Mental Status: Reports: Alert, Normal Affect, Normal Mood
[2020-01-10] MEDS: Brimonidine 0.2% Ophth Soln 5 ML Bottle EYEBOTH SCH (10:46)
[2020-01-10] MEDS: Timolol Maleate 0.5% Ophth Soln 5 ML Bottle EYEBOTH SCH (10:46)
[2020-01-10] MEDS: Dorzolamide 2% Ophth Soln 10 ML Bottle EYEBOTH SCH (10:46)
--- NOTE | 2020-01-10 12:52 | PCM.SURGPN ---
- General Info Date of Service: 01/08/20 Date of Surgery/Procedure: 01/07/20 POD#: 1 Post-Op Diagnosis: Osteoarthritis left knee Functional Status: Reports: Pain Controlled, Tolerating Diet, Ambulating - Review of Systems General: Reports: No Symptoms HEENT: Reports: No Symptoms Pulmonary: Reports: No Symptoms Cardiovascular: Reports: No Symptoms Gastrointestinal: Reports: No Symptoms Genitourinary: Reports: No Symptoms Musculoskeletal: Reports: Leg Pain Skin: Reports: No Symptoms Neurological: Reports: No Symptoms Psychiatric: Reports: No Symptoms - Patient Data Vitals - Most Recent: Last Vital Signs Temp 36.9 C 01/10/20 07:31 Pulse 77 01/10/20 07:31 Resp 16 01/10/20 07:31 BP 141/51 H 01/10/20 08:53 Pulse Ox 94 L 01/10/20 07:31 Weight - Most Recent: 122.47 kg I&O - Last 24 Hours: Intake & Output 01/09/20 01/10/20 01/10/20 22:59 06:59 14:59 Intake Total 400 550 Output Total 824 327 6197 Balance 300 -350 -550 Med Orders - Current: Current Medications Acetaminophen (Tylenol) 650 mg PO Q4H PRN PRN Reason: Pain/Fever Hydrocodone Bitart/Acetaminophen (Preston 325-5 Mg) 1 tab PO Q3H PRN PRN Reason: Pain Allopurinol (Zyloprim) 150 mg PO DAILY [facility] Last Admin: 01/10/20 08:53 Dose: 150 mg Artificial Tears (Genteal Mild To Moderate Ophth Soln) 0 ml EYEBOTH QID [facility] Last Admin: 01/10/20 10:46 Dose: 1 drop Bandage/Support Products ( Nasal Channel Sales Director) 1 applic NASBOTH BID [facility] Last Admin: 01/10/20 08:51 Dose: 1 applic Brimonidine Tartrate (Alphagan 0.2% Ophth Soln) 0 ml EYEBOTH BID [facility] Last Admin: 01/10/20 10:46 Dose: 1 drop Docusate Sodium (Colace) 100 mg PO BID [facility] Last Admin: 01/10/20 08:53 Dose: 100 mg Dorzolamide HCl (Trusopt 2% Ophth Soln) 0 ml EYEBOTH BID [facility] Last Admin: 01/10/20 10:46 Dose: 1 drop Enoxaparin Sodium (Lovenox) 30 mg SUBCUT DAILY [facility] Last Admin: 01/10/20 08:54 Dose: 30 mg Furosemide (Lasix) 40 mg PO DAILY [facility] Last Admin: 01/10/20 08:54 Dose: 20 mg Lactobacillus Rhamnosus (Culturelle) 1 cap PO BID [facility] Last Admin: 01/10/20 08:54 Dose: 1 cap Latanoprost (Xalatan 0.005% Ophth Soln) 0 ml EYEBOTH BEDTIME [facility] Last Admin: 01/09/20 20:27 Dose: 1 drop Levothyroxine Sodium (Levothyroxine) 25 mcg PO MoWeFr@[id number] [facility] Last Admin: 01/09/20 07:30 Dose: 25 mcg Levothyroxine Sodium (Levothyroxine) 37.5 mcg PO SuTuThSa@[id number] [facility] Last Admin: 01/10/20 07:27 Dose: 37.5 mcg Losartan Potassium (Cozaar) 100 mg PO DAILY [facility] Last Admin: 01/10/20 08:53 Dose: 100 mg Magnesium Hydroxide (Milk Of Magnesia) 30 ml PO BID PRN PRN Reason: Constipation Last Admin: 01/09/20 10:52 Dose: 30 ml Morphine Sulfate (Morphine) 2 mg IVPUSH Q1H PRN PRN Reason: Breakthrough Pain Last Admin: 01/07/20 13:44 Dose: 2 mg Ondansetron HCl (Zofran) 4 mg IVPUSH Q6H PRN PRN Reason: Nausea/Vomiting Oxycodone/Acetaminophen (Percocet 325-5 Mg) 1 - 2 tab PO Q4H PRN PRN Reason: Pain Last Admin: 01/10/20 12:25 Dose: 1 tab Timolol Maleate (Timoptic 0.5% Ophth Soln) 0 ml EYEBOTH BID [facility] Last Admin: 01/10/20 10:46 Dose: 1 drop Discontinued Medications Allopurinol (Zyloprim) 150 mg PO DAILY [facility] Bupivacaine HCl (Marcaine 0.5%) Confirm Administered Dose 30 ml .ROUTE .STK-MED ONE Stop: 01/07/20 08:56 Last Admin: 01/07/20 09:03 Dose: 20 ml Dexamethasone (Dexamethasone) Confirm Administered Dose 4 mg .ROUTE .STK-MED ONE Stop: 01/07/20 10:01 Docusate Sodium (Colace) 100 mg PO BID [facility] Enoxaparin Sodium (Lovenox) 30 mg SUBCUT DAILY [facility] Fentanyl (Sublimaze) Confirm Administered Dose 100 mcg .ROUTE .STK-MED ONE Stop: 01/07/20 07:22 Fentanyl (Sublimaze) Confirm Administered Dose 250 mcg .ROUTE .STK-MED ONE Stop: 01/07/20 08:37 Fentanyl (Sublimaze) 50 mcg IVPUSH ONETIME ONE Stop: 01/07/20 10:48 Last Admin: 01/07/20 10:54 Dose: 50 mcg Fentanyl (Sublimaze) 50 mcg IVPUSH ONETIME ONE Stop: 01/07/20 11:05 Last Admin: 01/07/20 11:20 Dose: 50 mcg Glycopyrrolate (Robinul) Confirm Administered Dose 1 mg .ROUTE .ST-MED ONE Stop: 01/07/20 10:01 Hydroxyzine HCl (Vistaril) 100 mg IM ONETIME ONE Stop: 01/07/20 10:49 Last Admin: 01/07/20 10:55 Dose: 100 mg Cefazolin Sodium/Dextrose 2 gm (/ Premix) 50 mls @ 100 mls/hr IV ONETIME ONE Stop: 01/07/20 07:59 Last Admin: 01/07/20 07:37 Dose: 100 mls/hr Lactated Ringer's (Ringers, Lactated) 1,000 mls @ 75 mls/hr IV ASDIRECTED [facility] Last Admin: 01/07/20 20:00 Dose: 75 mls/hr Tranexamic Acid 1,000 mg/ (Sodium Chloride) 60 mls @ 240 mls/hr IV ONETIME ONE Stop: 01/07/20 07:44 Last Admin: 01/07/20 12:59 Dose: Not Given Lactated Ringer's (Ringers, Lactated) Confirm Administered Dose 1,000 mls @ as directed .ROUTE .STK-MED ONE Stop: 01/07/20 10:02 Sodium Chloride (Normal Saline) 1,000 mls @ 125 mls/hr IV ASDIRECTED [facility] Cefazolin Sodium/Dextrose 1 gm (/ Premix) 50 mls @ 100 mls/hr IV Q8H [facility] Stop: 01/08/20 06:29 Last Admin: 01/08/20 05:10 Dose: 100 mls/hr Ketorolac Tromethamine (Toradol) 15 mg IVPUSH Q8H [facility] Stop: 01/09/20 06:01 Last Admin: 01/09/20 05:32 Dose: 15 mg Labetalol HCl (Normodyne) 5 mg IVPUSH NOW ONE; Protocol Stop: 01/07/20 11:08 Last Admin: 01/07/20 11:13 Dose: 5 mg Levothyroxine Sodium (Levothyroxine) 25 mcg PO MOWEFR [facility] Last Admin: 01/07/20 14:00 Dose: Not Given Levothyroxine Sodium (Levothyroxine) 37.5 mcg PO [facility] Midazolam HCl (Versed 1 Mg/Ml) Confirm Administered Dose 2 mg .ROUTE .STK-MED ONE Stop: 01/07/20 07:22 Neostigmine Methylsulfate (Neostigmine) Confirm Administered Dose 5 mg .ROUTE .STK-MED ONE Stop: 01/07/20 10:01 Non-Formulary Medication (Brimonidine Tartrate/Timolol [Combigan 0.2%-0.5% Eye Drops]) 1 drop EYEBOTH BID [facility] Non-Formulary Medication (Dorzolamide Hcl/Pf [Dorzolamide 2% Eye Drop]) 1 drop EYEBOTH BID [facility] Non-Formulary Medication (Lactobacillus Acidophilus [Probiotic]) 1 cap PO BID [facility] Non-Formulary Medication (Latanoprost/Pf [Latanoprost 0.005% Eye Drop]) 1 drop EYEBOTH BEDTIME [facility] Non-Formulary Medication (Losartan Potassium [Cozaar]) 100 mg PO DAILY [facility] Non-Formulary Medication (Mineral Oil, Light/Mineral Oil [Soothe Xp Eye Drops]) 1 drop EYEBOTH QID [facility] Ondansetron HCl (Zofran) Confirm Administered Dose 4 mg .ROUTE .STK-MED ONE Stop: 01/07/20 10:01 Povidone Iodine (Betadine 10% Soln) Confirm Administered Dose 1 ml .ROUTE .STK- MED ONE Stop: 01/07/20 06:43 Last Admin: 01/07/20 09:04 Dose: 40 ml Propofol (Diprivan 20 Ml) Confirm Administered Dose 200 mg .ROUTE .STK-MED ONE Stop: 01/07/20 07:22 Rocuronium [place] (Zemuron) Confirm Administered Dose 50 mg .ROUTE .STK-MED ONE Stop: 01/07/20 10:01 - Exam Wound/Incisions: Dressing Dry and Intact General: Alert, Oriented HEENT: Pupils Equal Neck: Supple Lungs: Clear to Auscultation, Normal Respiratory Effort Cardiovascular: Regular Rate, Regular Rhythm GI/Abdominal Exam: Normal Bowel Sounds, Soft, Non-Tender, No Distention Extremities: Limited Range of Motion, Other (No excessive swelling) Skin: Warm, Dry Neurological: No New Focal Deficit Psy/Mental Status: Alert, Normal Affect, Normal Mood Sepsis Event Note - Evaluation Sepsis Screening Result: No Definite Risk - Focused Exam Vital Signs: Vital Signs Temp Pulse Resp BP BP Pulse Ox 01/10/20 08:53 141/51 H 01/10/20 07:31 36.9 C 77 16 141/51 H 94 L 01/10/20 02:34 37.2 C 69 16 122/39 L 95 Date Exam was Performed: 01/10/20 Time Exam was Performed: 12:46 - Problem List & Annotations (1) Status post total left knee replacement SNOMED Code(s): 3721865641067, 9867957021476 Code(s): Z96.652 - PRESENCE OF LEFT ARTIFICIAL KNEE JOINT Status: Acute Current Visit: Yes (2) Knee pain, bilateral SNOMED Code(s): 28101241 Code(s): M25.561 - PAIN IN RIGHT KNEE; M25.562 - PAIN IN LEFT KNEE Status: Acute Current Visit: No Qualifiers: Chronicity: chronic (3) Lymphedema of both lower extremities SNOMED Code(s): 57969003502169077 Code(s): I89.0 - LYMPHEDEMA, NOT ELSEWHERE CLASSIFIED Status: Chronic Priority: High Current Visit: No - Problem List Review Problem List Initiated/Reviewed/Updated: Yes - My Orders Last 24 Hours: Active Orders 24 hr Category Date Time Status Ready for Discharge [RC] PER UNIT ROUTINE Care 01/10/20 09:08 Active Medication Orders Acetaminophen (Tylenol) 650 mg PO Q4H PRN PRN Reason: Pain/Fever Hydrocodone Bitart/Acetaminophen (Preston 325-5 Mg) 1 tab PO Q3H PRN PRN Reason: Pain Allopurinol (Zyloprim) 150 mg PO DAILY [facility] Last Admin: 01/10/20 08:53 Dose: 150 mg Admin: 01/09/20 08:30 Dose: 150 mg Admin: 01/08/20 09:10 Dose: 150 mg Artificial Tears (Genteal Mild To Moderate Ophth Soln) 0 ml EYEBOTH QID [facility] Last Admin: 01/10/20 10:46 Dose: 1 drop Admin: 01/10/20 07:27 Dose: 1 drop Admin: 01/09/20 23:22 Dose: 1 drop Admin: 01/09/20 16:25 Dose: Not Given Admin: 01/09/20 10:53 Dose: 1 drop Admin: 01/09/20 05:32 Dose: Not Given Admin: 01/08/20 22:03 Dose: Not Given Admin: 01/08/20 16:19 Dose: Not Given Admin: 01/08/20 09:52 Dose: Not Given Admin: 01/08/20 06:10 Dose: Admin: 01/07/20 21:18 Dose: Not Given Admin: 01/07/20 15:35 Dose: Not Given Bandage/Support Products ( Nasal Channel Sales Director) 1 applic NASBOTH BID [facility] Last Admin: 01/10/20 08:51 Dose: 1 applic Admin: 01/09/20 20:25 Dose: 1 applic Admin: 01/09/20 08:34 Dose: 1 applic Admin: 01/08/20 20:30 Dose: 1 applic Admin: 01/08/20 09:03 Dose: 1 applic Admin: 01/07/20 21:17 Dose: 1 applic Admin: 01/07/20 13:45 Dose: 1 applic Admin: 01/07/20 06:42 Dose: 1 applic Brimonidine Tartrate (Alphagan 0.2% Ophth Soln) 0 ml EYEBOTH BID [facility] Last Admin: 01/10/20 10:46 Dose: 1 drop Admin: 01/09/20 20:26 Dose: 1 drop Admin: 01/09/20 08:23 Dose: 1 drop Admin: 01/08/20 20:28 Dose: 1 drop Admin: 01/08/20 09:04 Dose: 1 drop Admin: 01/07/20 21:15 Dose: Docusate Sodium (Colace) 100 mg PO BID [facility] Last Admin: 01/10/20 08:53 Dose: 100 mg Admin: 01/09/20 20:26 Dose: Not Given Admin: 01/09/20 08:26 Dose: 100 mg Admin: 01/08/20 20:31 Dose: 100 mg Admin: 01/08/20 09:04 Dose: 100 mg Admin: 01/07/20 21:17 Dose: 100 mg Dorzolamide HCl (Trusopt 2% Ophth Soln) 0 ml EYEBOTH BID [facility] Last Admin: 01/10/20 10:46 Dose: 1 drop Admin: 01/09/20 20:27 Dose: 1 drop Admin: 01/09/20 08:25 Dose: 1 drop Admin: 01/08/20 20:28 Dose: 1 drop Admin: 01/08/20 09:09 Dose: 1 drop Admin: 01/07/20 21:15 Dose: Enoxaparin Sodium (Lovenox) 30 mg SUBCUT DAILY [facility] Last Admin: 01/10/20 08:54 Dose: 30 mg Admin: 01/09/20 08:29 Dose: 30 mg Admin: 01/08/20 09:05 Dose: 30 mg Furosemide (Lasix) 40 mg PO DAILY [facility] Last Admin: 01/10/20 08:54 Dose: 20 mg Admin: 01/09/20 08:28 Dose: 40 mg Admin: 01/08/20 09:49 Dose: 40 mg Lactobacillus Rhamnosus (Culturelle) 1 cap PO BID [facility] Last Admin: 01/10/20 08:54 Dose: 1 cap Admin: 01/09/20 20:27 Dose: 1 cap Admin: 01/09/20 08:28 Dose: 1 cap Admin: 01/08/20 20:30 Dose: 1 cap Admin: 01/08/20 09:04 Dose: 1 cap Admin: 01/07/20 21:16 Dose: 1 cap Latanoprost (Xalatan 0.005% Ophth Soln) 0 ml EYEBOTH BEDTIME [facility] Last Admin: 01/09/20 20:27 Dose: 1 drop Admin: 01/08/20 20:29 Dose: 1 drop Admin: 01/07/20 21:15 Dose: Levothyroxine Sodium (Levothyroxine) 25 mcg PO MoWeFr@0730 [facility] Last Admin: 01/09/20 07:30 Dose: 25 mcg Levothyroxine Sodium (Levothyroxine) 37.5 mcg PO SuTuThSa@0730 [facility] Last Admin: 01/10/20 07:27 Dose: 37.5 mcg Admin: 01/08/20 07:33 Dose: 37.5 mcg Losartan Potassium (Cozaar) 100 mg PO DAILY [facility] Last Admin: 01/10/20 08:53 Dose: 100 mg Admin: 01/09/20 08:26 Dose: 100 mg Admin: 01/08/20 09:10 Dose: 100 mg Magnesium Hydroxide (Milk Of Magnesia) 30 ml PO BID PRN PRN Reason: Constipation Last Admin: 01/09/20 10:52 Dose: 30 ml Morphine Sulfate (Morphine) 2 mg IVPUSH Q1H PRN PRN Reason: Breakthrough Pain Last Admin: 01/07/20 13:44 Dose: 2 mg Admin: 01/07/20 12:29 Dose: 2 mg Ondansetron HCl (Zofran) 4 mg IVPUSH Q6H PRN PRN Reason: Nausea/Vomiting Oxycodone/Acetaminophen (Percocet 325-5 Mg) 1 - 2 tab PO Q4H PRN PRN Reason: Pain Last Admin: 01/10/20 12:25 Dose: 1 tab Admin: 01/10/20 07:36 Dose: 1 tab Admin: 01/10/20 00:21 Dose: 1 tab Admin: 01/09/20 20:24 Dose: 2 tab Admin: 01/09/20 16:24 Dose: 1 tab Admin: 01/09/20 10:49 Dose: 1 tab Admin: 01/09/20 04:01 Dose: 1 tab Admin: 01/08/20 22:00 Dose: 2 tab Admin: 01/08/20 17:51 Dose: 1 tab Admin: 01/08/20 13:26 Dose: 1 tab Admin: 01/08/20 09:16 Dose: 1 tab Admin: 01/08/20 05:24 Dose: 1 tab Admin: 01/07/20 21:16 Dose: 1 tab Admin: 01/07/20 14:44 Dose: 2 tab Timolol Maleate (Timoptic 0.5% Ophth Soln) 0 ml EYEBOTH BID [facility] Last Admin: 01/10/20 10:46 Dose: 1 drop Admin: 01/09/20 20:27 Dose: 1 drop Admin: 01/09/20 08:25 Dose: Not Given Admin: 01/08/20 20:28 Dose: 1 drop Admin: 01/08/20 09:05 Dose: 1 drop Admin: 01/07/20 21:15 Dose: - Assessment Assessment (Free Text/Narrative):: Doing well POD #1, tolerating po, up in room, dressing without drainage, no complications with lymphedema - Plan Plan (Free Text/Narrative):: Restart Lasix and D/C [place] later today, Continue PT, will unwrap leg tomorrow
--- NOTE | 2020-01-10 13:00 | PCM.SURGPN ---
- General Info Date of Service: 01/09/20 Date of Surgery/Procedure: 01/07/20 POD#: 2 Post-Op Diagnosis: Osteoarthritis left knee Functional Status: Reports: Pain Controlled, Tolerating Diet, Ambulating, Urinating - Review of Systems General: Reports: No Symptoms HEENT: Reports: No Symptoms Pulmonary: Reports: No Symptoms Cardiovascular: Reports: No Symptoms Gastrointestinal: Reports: No Symptoms Genitourinary: Reports: No Symptoms Musculoskeletal: Reports: Leg Pain Skin: Reports: No Symptoms Neurological: Reports: No Symptoms Psychiatric: Reports: No Symptoms - Patient Data Vitals - Most Recent: Last Vital Signs Temp 36.9 C 01/10/20 07:31 Pulse 77 01/10/20 07:31 Resp 16 01/10/20 07:31 BP 141/51 H 01/10/20 08:53 Pulse Ox 94 L 01/10/20 07:31 Weight - Most Recent: 122.47 kg I&O - Last 24 Hours: Intake & Output 01/09/20 01/10/20 01/10/20 22:59 06:59 14:59 Intake Total 400 550 Output Total [phone] Balance 300 -350 -550 Med Orders - Current: Current Medications Acetaminophen (Tylenol) 650 mg PO Q4H PRN PRN Reason: Pain/Fever Hydrocodone Bitart/Acetaminophen ([place] 325-5 Mg) 1 tab PO Q3H PRN PRN Reason: Pain Allopurinol (Zyloprim) 150 mg PO DAILY [facility] Last Admin: 01/10/20 08:53 Dose: 150 mg Artificial Tears (Genteal Mild To Moderate Ophth Soln) 0 ml EYEBOTH QID [facility] Last Admin: 01/10/20 10:46 Dose: 1 drop Bandage/Support Products ( Nasal Certified Massage Therapist) 1 applic NASBOTH BID [facility] Last Admin: 01/10/20 08:51 Dose: 1 applic Brimonidine Tartrate (Alphagan 0.2% Ophth Soln) 0 ml EYEBOTH BID [facility] Last Admin: 01/10/20 10:46 Dose: 1 drop Docusate Sodium (Colace) 100 mg PO BID [facility] Last Admin: 01/10/20 08:53 Dose: 100 mg Dorzolamide HCl (Trusopt 2% Ophth Soln) 0 ml EYEBOTH BID [facility] Last Admin: 01/10/20 10:46 Dose: 1 drop Enoxaparin Sodium (Lovenox) 30 mg SUBCUT DAILY [facility] Last Admin: 01/10/20 08:54 Dose: 30 mg Furosemide (Lasix) 40 mg PO DAILY [facility] Last Admin: 01/10/20 08:54 Dose: 20 mg Lactobacillus Rhamnosus (Culturelle) 1 cap PO BID [facility] Last Admin: 01/10/20 08:54 Dose: 1 cap Latanoprost (Xalatan 0.005% Ophth Soln) 0 ml EYEBOTH BEDTIME [facility] Last Admin: 01/09/20 20:27 Dose: 1 drop Levothyroxine Sodium (Levothyroxine) 25 mcg PO MoWeFr@0730 [facility] Last Admin: 01/09/20 07:30 Dose: 25 mcg Levothyroxine Sodium (Levothyroxine) 37.5 mcg PO SuTuThSa@0730 [facility] Last Admin: 01/10/20 07:27 Dose: 37.5 mcg Losartan Potassium (Cozaar) 100 mg PO DAILY [facility] Last Admin: 01/10/20 08:53 Dose: 100 mg Magnesium Hydroxide (Milk Of Magnesia) 30 ml PO BID PRN PRN Reason: Constipation Last Admin: 01/09/20 10:52 Dose: 30 ml Morphine Sulfate (Morphine) 2 mg IVPUSH Q1H PRN PRN Reason: Breakthrough Pain Last Admin: 01/07/20 13:44 Dose: 2 mg Ondansetron HCl (Zofran) 4 mg IVPUSH Q6H PRN PRN Reason: Nausea/Vomiting Oxycodone/Acetaminophen (Percocet 325-5 Mg) 1 - 2 tab PO Q4H PRN PRN Reason: Pain Last Admin: 01/10/20 12:25 Dose: 1 tab Timolol Maleate (Timoptic 0.5% Ophth Soln) 0 ml EYEBOTH BID [facility] Last Admin: 01/10/20 10:46 Dose: 1 drop Discontinued Medications Allopurinol (Zyloprim) 150 mg PO DAILY [facility] Bupivacaine HCl (Marcaine 0.5%) Confirm Administered Dose 30 ml .ROUTE .STK-MED ONE Stop: 01/07/20 08:56 Last Admin: 01/07/20 09:03 Dose: 20 ml Dexamethasone (Dexamethasone) Confirm Administered Dose 4 mg .ROUTE .STK-MED ONE Stop: 01/07/20 10:01 Docusate Sodium (Colace) 100 mg PO BID [facility] Enoxaparin Sodium (Lovenox) 30 mg SUBCUT DAILY [facility] Fentanyl (Sublimaze) Confirm Administered Dose 100 mcg .ROUTE .STK-MED ONE Stop: 01/07/20 07:22 Fentanyl (Sublimaze) Confirm Administered Dose 250 mcg .ROUTE .STK-MED ONE Stop: 01/07/20 08:37 Fentanyl (Sublimaze) 50 mcg IVPUSH ONETIME ONE Stop: 01/07/20 10:48 Last Admin: 01/07/20 10:54 Dose: 50 mcg Fentanyl (Sublimaze) 50 mcg IVPUSH ONETIME ONE Stop: 01/07/20 11:05 Last Admin: 01/07/20 11:20 Dose: 50 mcg Glycopyrrolate (Robinul) Confirm Administered Dose 1 mg .ROUTE .ST-MED ONE Stop: 01/07/20 10:01 Hydroxyzine HCl (Vistaril) 100 mg IM ONETIME ONE Stop: 01/07/20 10:49 Last Admin: 01/07/20 10:55 Dose: 100 mg Cefazolin Sodium/Dextrose 2 gm (/ Premix) 50 mls @ 100 mls/hr IV ONETIME ONE Stop: 01/07/20 07:59 Last Admin: 01/07/20 07:37 Dose: 100 mls/hr Lactated Ringer's (Ringers, Lactated) 1,000 mls @ 75 mls/hr IV ASDIRECTED [facility] Last Admin: 01/07/20 20:00 Dose: 75 mls/hr Tranexamic Acid 1,000 mg/ (Sodium Chloride) 60 mls @ 240 mls/hr IV ONETIME ONE Stop: 01/07/20 07:44 Last Admin: 01/07/20 12:59 Dose: Not Given Lactated Ringer's (Ringers, Lactated) Confirm Administered Dose 1,000 mls @ as directed .ROUTE .STK-MED ONE Stop: 01/07/20 10:02 Sodium Chloride (Normal Saline) 1,000 mls @ 125 mls/hr IV ASDIRECTED [facility] Cefazolin Sodium/Dextrose 1 gm (/ Premix) 50 mls @ 100 mls/hr IV Q8H [facility] Stop: 01/08/20 06:29 Last Admin: 01/08/20 05:10 Dose: 100 mls/hr Ketorolac Tromethamine (Toradol) 15 mg IVPUSH Q8H [facility] Stop: 01/09/20 06:01 Last Admin: 01/09/20 05:32 Dose: 15 mg Labetalol HCl (Normodyne) 5 mg IVPUSH NOW ONE; Protocol Stop: 01/07/20 11:08 Last Admin: 01/07/20 11:13 Dose: 5 mg Levothyroxine Sodium (Levothyroxine) 25 mcg PO MOWEFR [facility] Last Admin: 01/07/20 14:00 Dose: Not Given Levothyroxine Sodium (Levothyroxine) 37.5 mcg [facility] Midazolam HCl (Versed 1 Mg/Ml) Confirm Administered Dose 2 mg .ROUTE .STK-MED ONE Stop: 01/07/20 07:22 Neostigmine Methylsulfate (Neostigmine) Confirm Administered Dose 5 mg .ROUTE .STK-MED ONE Stop: 01/07/20 10:01 Non-Formulary Medication (Brimonidine Tartrate/Timolol [Combigan 0.2%-0.5% Eye Drops]) 1 drop EYEBOTH BID [facility] Non-Formulary Medication (Dorzolamide Hcl/Pf [Dorzolamide 2% Eye Drop]) 1 drop EYEBOTH BID [facility] Non-Formulary Medication (Lactobacillus Acidophilus [Probiotic]) 1 cap PO BID [facility] Non-Formulary Medication (Latanoprost/Pf [Latanoprost 0.005% Eye Drop]) 1 drop EYEBOTH BEDTIME [facility] Non-Formulary Medication (Losartan Potassium [Cozaar]) 100 mg PO DAILY [facility] Non-Formulary Medication (Mineral Oil, Light/Mineral Oil [Soothe Xp Eye Drops]) 1 drop EYEBOTH QID [facility] Ondansetron HCl (Zofran) Confirm Administered Dose 4 mg .ROUTE .STK-MED ONE Stop: 01/07/20 10:01 Povidone Iodine (Betadine 10% Soln) Confirm Administered Dose 1 ml .ROUTE .STK- MED ONE Stop: 01/07/20 06:43 Last Admin: 01/07/20 09:04 Dose: 40 ml Propofol (Diprivan 20 Ml) Confirm Administered Dose 200 mg .ROUTE .STK-MED ONE Stop: 01/07/20 07:22 Rocuronium [place] (Zemuron) Confirm Administered Dose 50 mg .ROUTE .STK-MED ONE Stop: 01/07/20 10:01 - Exam Wound/Incisions: Dressing Dry and Intact General: Alert, Oriented HEENT: Pupils Equal Neck: Supple Lungs: Clear to Auscultation, Normal Respiratory Effort Cardiovascular: Regular Rate, Regular Rhythm GI/Abdominal Exam: Normal Bowel Sounds, Soft, Non-Tender, No Distention Extremities: Joint Swelling, Limited Range of Motion Skin: Warm, Dry Neurological: No New Focal Deficit Psy/Mental Status: Alert, Normal Affect, Normal Mood Sepsis Event Note - Evaluation Sepsis Screening Result: No Definite Risk - Focused Exam Vital Signs: Vital Signs Temp Pulse Resp BP BP Pulse Ox 01/10/20 08:53 141/51 H 01/10/20 07:31 36.9 C 77 16 141/51 H 94 L 01/10/20 02:34 37.2 C 69 16 122/39 L 95 Date Exam was Performed: 01/10/20 Time Exam was Performed: 12:55 - Problem List & Annotations (1) Status post total left knee replacement SNOMED Code(s): 9492123148710, 8883963969717 Code(s): Z96.652 - PRESENCE OF LEFT ARTIFICIAL KNEE JOINT Status: Acute Current Visit: Yes (2) Knee pain, bilateral SNOMED Code(s): 70745002 Code(s): M25.561 - PAIN IN RIGHT KNEE; M25.562 - PAIN IN LEFT KNEE Status: Acute Current Visit: No Qualifiers: Chronicity: chronic (3) Lymphedema of both lower extremities SNOMED Code(s): 68646391000086019 Code(s): I89.0 - LYMPHEDEMA, NOT ELSEWHERE CLASSIFIED Status: Chronic Priority: High Current Visit: No - Problem List Review Problem List Initiated/Reviewed/Updated: Yes - My Orders Last 24 Hours: Active Orders 24 hr Category Date Time Status Ready for Discharge [RC] PER UNIT ROUTINE Care 01/10/20 09:08 Active Medication Orders Acetaminophen (Tylenol) 650 mg PO Q4H PRN PRN Reason: Pain/Fever Hydrocodone Bitart/Acetaminophen ([place] 325-5 Mg) 1 tab PO Q3H PRN PRN Reason: Pain Allopurinol (Zyloprim) 150 mg PO DAILY [facility] Last Admin: 01/10/20 08:53 Dose: 150 mg Admin: 01/09/20 08:30 Dose: 150 mg Admin: 01/08/20 09:10 Dose: 150 mg Artificial Tears (Genteal Mild To Moderate Ophth Soln) 0 ml EYEBOTH QID [facility] Last Admin: 01/10/20 10:46 Dose: 1 drop Admin: 01/10/20 07:27 Dose: 1 drop Admin: 01/09/20 23:22 Dose: 1 drop Admin: 01/09/20 16:25 Dose: Not Given Admin: 01/09/20 10:53 Dose: 1 drop Admin: 01/09/20 05:32 Dose: Not Given Admin: 01/08/20 22:03 Dose: Not Given Admin: 01/08/20 16:19 Dose: Not Given Admin: 01/08/20 09:52 Dose: Not Given Admin: 01/08/20 06:10 Dose: Admin: 01/07/20 21:18 Dose: Not Given Admin: 01/07/20 15:35 Dose: Not Given Bandage/Support Products ( Nasal Certified Massage Therapist) 1 applic NASBOTH BID [facility] Last Admin: 01/10/20 08:51 Dose: 1 applic Admin: 01/09/20 20:25 Dose: 1 applic Admin: 01/09/20 08:34 Dose: 1 applic Admin: 01/08/20 20:30 Dose: 1 applic Admin: 01/08/20 09:03 Dose: 1 applic Admin: 01/07/20 21:17 Dose: 1 applic Admin: 01/07/20 13:45 Dose: 1 applic Admin: 01/07/20 06:42 Dose: 1 applic Brimonidine Tartrate (Alphagan 0.2% Ophth Soln) 0 ml EYEBOTH BID [facility] Last Admin: 01/10/20 10:46 Dose: 1 drop Admin: 01/09/20 20:26 Dose: 1 drop Admin: 01/09/20 08:23 Dose: 1 drop Admin: 01/08/20 20:28 Dose: 1 drop Admin: 01/08/20 09:04 Dose: 1 drop Admin: 01/07/20 21:15 Dose: Docusate Sodium (Colace) 100 mg PO BID [facility] Last Admin: 01/10/20 08:53 Dose: 100 mg Admin: 01/09/20 20:26 Dose: Not Given Admin: 01/09/20 08:26 Dose: 100 mg Admin: 01/08/20 20:31 Dose: 100 mg Admin: 01/08/20 09:04 Dose: 100 mg Admin: 01/07/20 21:17 Dose: 100 mg Dorzolamide HCl (Trusopt 2% Ophth Soln) 0 ml EYEBOTH BID [facility] Last Admin: 01/10/20 10:46 Dose: 1 drop Admin: 01/09/20 20:27 Dose: 1 drop Admin: 01/09/20 08:25 Dose: 1 drop Admin: 01/08/20 20:28 Dose: 1 drop Admin: 01/08/20 09:09 Dose: 1 drop Admin: 01/07/20 21:15 Dose: Enoxaparin Sodium (Lovenox) 30 mg SUBCUT DAILY [facility] Last Admin: 01/10/20 08:54 Dose: 30 mg Admin: 01/09/20 08:29 Dose: 30 mg Admin: 01/08/20 09:05 Dose: 30 mg Furosemide (Lasix) 40 mg PO DAILY [facility] Last Admin: 01/10/20 08:54 Dose: 20 mg Admin: 01/09/20 08:28 Dose: 40 mg Admin: 01/08/20 09:49 Dose: 40 mg Lactobacillus Rhamnosus (Culturelle) 1 cap PO BID [facility] Last Admin: 01/10/20 08:54 Dose: 1 cap Admin: 01/09/20 20:27 Dose: 1 cap Admin: 01/09/20 08:28 Dose: 1 cap Admin: 01/08/20 20:30 Dose: 1 cap Admin: 01/08/20 09:04 Dose: 1 cap Admin: 01/07/20 21:16 Dose: 1 cap Latanoprost (Xalatan 0.005% Ophth Soln) 0 ml EYEBOTH BEDTIME [facility] Last Admin: 01/09/20 20:27 Dose: 1 drop Admin: 01/08/20 20:29 Dose: 1 drop Admin: 01/07/20 21:15 Dose: Levothyroxine Sodium (Levothyroxine) 25 mcg PO MoWeFr@0730 [facility] Last Admin: 01/09/20 07:30 Dose: 25 mcg Levothyroxine Sodium (Levothyroxine) 37.5 mcg PO SuTuThSa@0730 [facility] Last Admin: 01/10/20 07:27 Dose: 37.5 mcg Admin: 01/08/20 07:33 Dose: 37.5 mcg Losartan Potassium (Cozaar) 100 mg PO DAILY [facility] Last Admin: 01/10/20 08:53 Dose: 100 mg Admin: 01/09/20 08:26 Dose: 100 mg Admin: 01/08/20 09:10 Dose: 100 mg Magnesium Hydroxide (Milk Of Magnesia) 30 ml PO BID PRN PRN Reason: Constipation Last Admin: 01/09/20 10:52 Dose: 30 ml Morphine Sulfate (Morphine) 2 mg IVPUSH Q1H PRN PRN Reason: Breakthrough Pain Last Admin: 01/07/20 13:44 Dose: 2 mg Admin: 01/07/20 12:29 Dose: 2 mg Ondansetron HCl (Zofran) 4 mg IVPUSH Q6H PRN PRN Reason: Nausea/Vomiting Oxycodone/Acetaminophen (Percocet 325-5 Mg) 1 - 2 tab PO Q4H PRN PRN Reason: Pain Last Admin: 01/10/20 12:25 Dose: 1 tab Admin: 01/10/20 07:36 Dose: 1 tab Admin: 01/10/20 00:21 Dose: 1 tab Admin: 01/09/20 20:24 Dose: 2 tab Admin: 01/09/20 16:24 Dose: 1 tab Admin: 01/09/20 10:49 Dose: 1 tab Admin: 01/09/20 04:01 Dose: 1 tab Admin: 01/08/20 22:00 Dose: 2 tab Admin: 01/08/20 17:51 Dose: 1 tab Admin: 01/08/20 13:26 Dose: 1 tab Admin: 01/08/20 09:16 Dose: 1 tab Admin: 01/08/20 05:24 Dose: 1 tab Admin: 01/07/20 21:16 Dose: 1 tab Admin: 01/07/20 14:44 Dose: 2 tab Timolol Maleate (Timoptic 0.5% Ophth Soln) 0 ml EYEBOTH BID [facility] Last Admin: 01/10/20 10:46 Dose: 1 drop Admin: 01/09/20 20:27 Dose: 1 drop Admin: 01/09/20 08:25 Dose: Not Given Admin: 01/08/20 20:28 Dose: 1 drop Admin: 01/08/20 09:05 Dose: 1 drop Admin: 01/07/20 21:15 Dose: - Assessment Assessment (Free Text/Narrative):: Progressing with PT, pain controlled, Attila wrap removed and [place] dressing is intact, no significant increase in swelling - Plan Plan (Free Text/Narrative):: Continue PT, not independent with transfers, working on placement for SNF/rehab
--- NOTE | 2020-01-15 08:47 | OR ---
DATE OF PROCEDURE: 01/07/2020 SURGEON: Stefan Hunter MD POSTOPERATIVE DIAGNOSIS: Osteoarthritis, left knee. POSTOPERATIVE DIAGNOSIS: Severe osteoarthritis, left knee. PROCEDURE: Left total knee arthroplasty using Loly Persona components. ANESTHESIA: General. INDICATIONS: Jordana is a very pleasant 69-year-old female with history of longstanding osteoarthritis in both knees. She has failed conservative treatment. X-rays reveal complete medial joint space collapse in both knees, left slightly more severe than the right. There is moderate varus deformity. She is having difficulty with prolonged standing and activities of daily living. Now presents for left total knee arthroplasty. Risks, benefits, and potential complications were discussed including possible wound healing and risk of infection due to lymphedema. PROCEDURE IN DETAIL: After adequate general anesthesia was obtained, the patient was placed supine with a tourniquet about the left upper thigh. Left leg was prepped and draped in a sterile fashion. Leg was exsanguinated and tourniquet inflated to 300 mmHg pressure. Longitudinal incision was made over the anterior aspect of the knee, carried down through the subcutaneous tissues. Hemostasis was obtained with electrocautery. Medial parapatellar approach was made. Patella was partially everted and posterior aspect was resected with an oscillating saw. Complete loss of articular cartilage was noted in the medial compartment with some bone deformity. Intramedullary canal of the femur was drilled and guide was placed. Distal cutting jig was secured and the distal femoral cut was made. Extramedullary tibial alignment jig was utilized. This was aligned and secured and the proximal tibia was cut. Medial and lateral menisci were excised. Femur was sized. Cutting jig was secured and remaining cuts were made. Femoral trial was placed. Intercondylar notch was cut for a posterior cruciate sacrificing component. Drill holes were placed for pegs. Tibia was then sized. Trials were placed. Knee was taken through range of motion, found to be very well balanced in flexion and extension. Patella was sized and drilled. Tibial plate was secured. Tibial preparation was completed using a reamer and punch. Trials were removed. The knee was thoroughly irrigated with pulse lavage. Ends of the bones were dried and components were then cemented in place. Excess cement was removed. The knee was held in full extension with the trial insert as the cement cured. Knee was taken through range of motion, found to have full extension and good balance in flexion and extension. Trial was removed. Knee was irrigated and the polyethylene was snapped into position. Knee was then irrigated with a dilute Betadine solution, which was left in place for 2-1/2 minutes and followed by irrigation with pulse lavage. Capsule was then closed with #2 Ethibond. Skin was closed with 2-0 Vicryl and a running 3-0 Monocryl. Steri-Strips were applied. A JAMES negative pressure dressing was then placed. Light compression was then applied with sterile cast padding and Attila bandage. The patient tolerated the procedure very well. There were no complications. She was taken from the operating room in stable condition. Stefan Hutner MD /[id number]
== END 2020-01-10 13:15 | DRG 470 ==
LOC: JP.SDSSCHI 05:52 → JP.SDS 05:52 → EDSTATUS 08:30 → JP.MS 10:20
PROVIDERS: ADMIT Specialist; ATTEND Specialist
PROC: 0SRD0JZ Replacement of Left Knee Joint with Synthetic Substitute, Open Approach (ICD-10-PCS; principal; 2020-01-07)
DX: M17.12 Unilateral primary osteoarthritis, left knee (principal); I10 Essential (primary) hypertension; E78.5 Hyperlipidemia, unspecified; E66.9 Obesity, unspecified; E55.9 Vitamin D deficiency, unspecified; I73.9 Peripheral vascular disease, unspecified; M16.11 Unilateral primary osteoarthritis, right hip; I89.0 Lymphedema, not elsewhere classified; Z96.649 Presence of unspecified artificial hip joint; M79.7 Fibromyalgia; E03.9 Hypothyroidism, unspecified; M81.0 Age-related osteoporosis without current pathological fracture; Z79.2 Long term (current) use of antibiotics; Z79.899 Other long term (current) drug therapy; Z88.8 Allergy status to other drugs, medicaments and biological substances
CPT/HCPCS: 36415; 73560-26-LT; 73560-LT; 80048; 85027; 86850; 86900; 86901; 97110-GP; 97116-GP; 97140-GP; 97161-GP; 97165-GO; 97530-GP; 97605; A9270-GY; C1713; C1776; J0690; J1100; J1650; J1885; J2250; J2270; J2405; J2704; J2710; J3010; J3410; J3490; J7050; J7120

== ENCOUNTER 2021-02-16 06:24 | Inpatient (IN) | payer MEDICARE ==
[~2021-02-16 06:24] MED LIST: Lactated Ringers 1,000 ML IV ONE
[2021-02-16] MEDS ORDERED: ceFAZolin 2 GM in Sodium Chloride 0.9% 50 ML IV ONE (07:00)
[2021-02-16] MEDS ORDERED: Lactated Ringers 1,000 ML IV SCH (07:00)
[2021-02-16] MEDS ORDERED: ceFAZolin 2 GM in Premix Bag 1 BAG IV ONE (07:00)
[2021-02-16] MEDS: Nozin Nasal Sanitizer NASBOTH SCH ×3 (07:02→20:59)
[2021-02-16] MEDS ORDERED: Neostigmine Methylsulfate 1 MG/ML 5 ML Syringe ONE (07:20)
[2021-02-16] MEDS ORDERED: Dexamethasone 4 MG/ML SDV ONE (07:20)
[2021-02-16] MEDS ORDERED: Glycopyrrolate 0.2 MG/ML 5 ML MDV ONE (07:20)
[2021-02-16] MEDS ORDERED: fentaNYL 250 MCG/5 ML SDV ONE ×2 (07:20→09:56)
[2021-02-16] MEDS ORDERED: Propofol 200 MG/20 ML SDV ONE (07:20)
[2021-02-16] MEDS ORDERED: Ondansetron 4 MG/2 ML SDV ONE (07:20)
[2021-02-16] MEDS ORDERED: Rocuronium 50 MG/5 ML Vial ONE (07:20)
[2021-02-16] MEDS ORDERED: Tranexamic Acid 1,000 MG in Sodium Chloride 0.9% 50 ML IV ONE (08:15)
[2021-02-16] MEDS: Povidone-Iodine 10% Soln 118.25 ML Bottle ONE ×2 (09:19→10:11)
[2021-02-16] MEDS: Bupivacaine 0.5% 50 ML MDV ONE ×2 (09:19→10:49)
[2021-02-16] MEDS ORDERED: Acetaminophen 325 MG Tab PO PRN (11:01)
[2021-02-16] MEDS ORDERED: Ondansetron 4 MG/2 ML SDV IVPUSH PRN (11:01)
[2021-02-16] MEDS ORDERED: Magnesium Hydroxide 400 MG/5 ML Susp 30 ML Cup PO PRN (11:01)
[2021-02-16] MEDS ORDERED: Acetaminophen/HYDROcodone 325-5 MG Tab PO PRN (11:01)
[2021-02-16] MEDS ORDERED: fentaNYL 100 MCG/2 ML SDV IVPUSH ONE (11:28)
[2021-02-16] MEDS ORDERED: hydrOXYzine HCL 100 MG/2 ML SDV IM ONE (11:28)
[2021-02-16] MEDS ORDERED: Labetalol 20 MG/4 ML Syringe IVPUSH PRN (11:32)
[2021-02-16] MEDS: Acetaminophen/oxyCODONE 325-5 MG Tab PO PRN ×3 (12:35→20:58)
[2021-02-16] MEDS: Morphine 2 MG/ML SYRINGE IVPUSH PRN ×2 (12:40→22:50)
[2021-02-16] MEDS: Sodium Chloride 0.9% 1,000 ML IV SCH ×2 (13:03→22:12)
--- NOTE | 2021-02-16 15:06 | CR ---
Knee 1V or 2V Rt CLINICAL HISTORY: Postop DKA FINDINGS: Patient has had placement of a total knee arthroplasty. Components appear well seated. There is intra-articular and subcutaneous air. IMPRESSION: Status post total knee arthroplasty
[2021-02-16] MEDS: ceFAZolin 1 GM in Premix Bag 1 BAG IV SCH ×2 (15:58→23:49)
[2021-02-16] MEDS: Levothyroxine 25 MCG Tab PO SCH (16:04)
[2021-02-16] MEDS: prednisoLONE Acetate 1% Ophth Susp 5 ML Bottle EYELF SCH ×2 (16:04→20:59)
[2021-02-16] MEDS: Docusate Sodium 100 MG Cap PO SCH (20:59)
[2021-02-16] MEDS: Lactobacillus Rhamnosus GG (Probiotic) Cap PO SCH (20:59)
[2021-02-16] MEDS: Gabapentin 300 MG Cap PO SCH (20:59)
[2021-02-16] MEDS ORDERED: Nozin Nasal Sanitizer NASBOTH SCH (21:00)
[2021-02-16] MEDS: KETOROLAC 0.5% EYELF SCH (21:00)
[2021-02-16] MEDS ORDERED: Sodium Chloride 0.9% 1,000 ML IV SCH (23:15)
[2021-02-17] MEDS: Acetaminophen/oxyCODONE 325-5 MG Tab PO PRN ×4 (03:07→19:36)
[2021-02-17] MEDS: KETOROLAC 0.5% EYELF SCH ×4 (05:55→21:16)
[2021-02-17] MEDS: Levothyroxine 25 MCG Tab PO SCH (07:24)
[2021-02-17] MEDS: ceFAZolin 1 GM in Premix Bag 1 BAG IV SCH (07:31)
--- NOTE | 2021-02-17 07:38 | PCM.SURGPN ---
- General Info Date of Service: 02/17/21 Date of Surgery/Procedure: 02/16/21 POD#: 1 Post-Op Diagnosis: right knee osteoarthritis Functional Status: Reports: Tolerating Diet - Review of Systems General: Reports: No Symptoms HEENT: Reports: No Symptoms Pulmonary: Reports: No Symptoms Cardiovascular: Reports: No Symptoms Gastrointestinal: Reports: No Symptoms Genitourinary: Reports: No Symptoms Musculoskeletal: Reports: Leg Pain, Joint Pain (right knee ), Joint Swelling (bilateral LE; lymphedema per baseline ) Skin: Reports: No Symptoms Neurological: Reports: No Symptoms Psychiatric: Reports: No Symptoms - Patient Data Vitals - Most Recent: Last Vital Signs Temp 98.9 F 02/17/21 03:10 Pulse 65 02/17/21 03:10 Resp 18 02/17/21 03:10 BP 149/49 H 02/17/21 03:10 Pulse Ox 95 02/17/21 03:10 Weight - Most Recent: 284 lb 6.4 oz I&O - Last 24 Hours: Intake & Output 02/16/21 02/17/21 02/17/21 22:59 06:59 14:59 Intake Total 1230 1240 100 Output Total 225 1500 Balance 1005 -260 100 Lab Results Last 24 Hrs: Laboratory Results - last 24 hr 02/16/21 02/16/21 02/17/21 Range/Units 07:10 07:10 05:45 WBC 11.0 (4.5-11.0) K/uL RBC 3.71 (3.30-5.50) M/uL Hgb 11.2 L D (12.0-15.0) g/dL Hct 35.1 L (36.0-48.0) % MCV 95 (80-98) fL MCH 30 (27-31) pg MCHC 32 (32-36) % Plt Count 160 (150-400) K/uL Sodium 143 (140-148) mmol/L Potassium 4.0 (3.6-5.2) mmol/L Chloride 107 (100-108) mmol/L Carbon Dioxide 24 (21-32) mmol/L Anion Gap 12.2 (5.0-14.0) mmol/L BUN 25 H (7-18) mg/dL Creatinine 0.8 (0.6-1.0) mg/dL Est Cr Clr Drug Dosing 49.12 mL/min Estimated GFR (MDRD) > 60 (>60) Glucose 107 H (74-106) mg/dL Calcium 9.1 (8.5-10.1) mg/dL Total Bilirubin 0.8 (0.2-1.0) mg/dL AST 20 (15-37) U/L ALT 32 (12-78) U/L Alkaline Phosphatase 118 H (46-116) U/L Total Protein 6.9 (6.4-8.2) g/dL Albumin 3.6 (3.4-5.0) g/dL Globulin 3.3 (2.3-3.5) g/dL Albumin/Globulin Ratio 1.1 L (1.2-2.2) Blood Type B POSITIVE Gel Antibody Screen Negative Med Orders - Current: Current Medications Acetaminophen (Acetaminophen 325 Mg Tab) 650 mg PO Q4H PRN PRN Reason: Pain/Fever Hydrocodone Bitart/Acetaminophen (Acetaminophen/Hydrocodone 325-5 Mg Tab) 1 tab PO Q4H PRN PRN Reason: Pain (mild 1-3) Acyclovir (Acyclovir 200 Mg Cap) 400 mg PO DAILY [facility] Allopurinol (Allopurinol 100 Mg Tab) 100 mg PO DAILY [facility] Bandage/Support Products (Nozin Nasal Owner Consulting Engineer) 1 applic NASBOTH BID [facility] Last Admin: 02/16/21 20:59 Dose: 1 applic Documented by: Docusate Sodium (Docusate Sodium 100 Mg Cap) 100 mg PO BID [facility] Last Admin: 02/16/21 20:59 Dose: 100 mg Documented by: Enoxaparin Sodium (Enoxaparin 30 Mg/0.3 Ml Syringe) 30 mg SUBCUT DAILY [facility] Gabapentin (Gabapentin 300 Mg Cap) 300 mg PO BID [facility] Last Admin: 02/16/21 20:59 Dose: 300 mg Documented by: Cefazolin Sodium/Dextrose 1 gm (/ Premix) 50 mls @ 100 mls/hr IV Q8H [facility] Stop: 02/17/21 08:29 Last Admin: 02/17/21 07:31 Dose: 100 mls/hr Documented by: Sodium Chloride (Normal Saline) 1,000 mls @ 75 mls/hr IV ASDIRECTED [facility] Ketorolac Tromethamine (Ketorolac 0.5% Ophth Soln 5 Ml Bottle*Pom*) 0 ml EYELF QID [facility] Last Admin: 02/17/21 05:55 Dose: 1 drop Documented by: Labetalol HCl (Labetalol 20 Mg/4 Ml Syringe) 0 mg IVPUSH Q1H PRN; Protocol PRN Reason: Hypertension Last Admin: 02/16/21 11:37 Dose: 5 mg Documented by: Lactobacillus Rhamnosus (Lactobacillus Rhamnosus Gg (Probiotic) Cap) 1 cap PO BID [facility] Last Admin: 02/16/21 20:59 Dose: 1 cap Documented by: Levothyroxine Sodium (Levothyroxine 25 Mcg Tab) 25 mcg PO MoWeFr@0730 [facility] Last Admin: 02/16/21 16:04 Dose: 25 mcg Documented by: Levothyroxine Sodium (Levothyroxine 25 Mcg Tab) 37.5 mcg PO SuTuThSa@0730 [facility] Last Admin: 02/17/21 07:24 Dose: 37.5 mcg Documented by: Losartan Potassium (Losartan 50 Mg Tab) 100 mg PO DAILY [facility] Magnesium Hydroxide (Magnesium Hydroxide 400 Mg/5 Ml Susp 30 Ml Cup) 30 ml PO BID PRN PRN Reason: Constipation Morphine Sulfate (Morphine 2 Mg/Ml Syringe) 1 mg IVPUSH Q1H PRN PRN Reason: Breakthrough Pain Last Admin: 02/16/21 22:50 Dose: 1 mg Documented by: Ondansetron HCl (Ondansetron 4 Mg/2 Ml Sdv) 4 mg IVPUSH Q4H PRN PRN Reason: Nausea/Vomiting Oxycodone/Acetaminophen (Acetaminophen/Oxycodone 325-5 Mg Tab) 1 - 2 tab PO Q4H PRN PRN Reason: Pain Last Admin: 02/17/21 07:30 Dose: 2 tab Documented by: Prednisolone Acetate (Prednisolone Acetate 1% Ophth Susp 5 Ml Bottle) 0 ml EYELF TID [facility] Last Admin: 02/16/21 20:59 Dose: 1 drop Documented by: Discontinued Medications Bandage/Support Products (Nozin Nasal Owner Consulting Engineer) 1 applic NASBOTH BID [facility] Bupivacaine HCl (Bupivacaine 0.5% 50 Ml Mdv) Confirm Administered Dose 50 ml .ROUTE .STK-MED ONE Stop: 02/16/21 09:06 Last Admin: 02/16/21 10:49 Dose: 20 ml Documented by: Dexamethasone (Dexamethasone 4 Mg/Ml Sdv) Confirm Administered Dose 4 mg .ROUTE .STK-MED ONE Stop: 02/16/21 07:21 Fentanyl (Fentanyl 250 Mcg/5 Ml Sdv) Confirm Administered Dose 250 mcg .ROUTE .STK-MED ONE Stop: 02/16/21 07:21 Fentanyl (Fentanyl 250 Mcg/5 Ml Sdv) Confirm Administered Dose 250 mcg .ROUTE .STK-MED ONE Stop: 02/16/21 09:57 Fentanyl (Fentanyl 100 Mcg/2 Ml Sdv) 50 mcg IVPUSH ONETIME ONE Stop: 02/16/21 11:29 Last Admin: 02/16/21 11:35 Dose: 50 mcg Documented by: Glycopyrrolate (Glycopyrrolate 0.2 Mg/Ml 5 Ml Mdv) Confirm Administered Dose 1 mg .ROUTE .STK-MED ONE Stop: 02/16/21 07:21 Hydroxyzine HCl (Hydroxyzine Hcl 100 Mg/2 Ml Sdv) 100 mg IM ONETIME ONE Stop: 02/16/21 11:29 Last Admin: 02/16/21 11:35 Dose: 100 mg Documented by: Lactated Ringer's (Ringers, Lactated) 1,000 mls @ 75 mls/hr IV ASDIRECTED [facility] Lactated Ringer's (Ringers, Lactated) 1,000 mls @ 999 mls/hr IV ASDIRECTED ONE Stop: 02/13/21 08:30 Last Admin: 02/16/21 07:03 Dose: 999 mls/hr Documented by: Cefazolin Sodium/Dextrose 2 gm (/ Premix) 50 mls @ 100 mls/hr IV ONETIME ONE Stop: 02/16/21 07:29 Last Admin: 02/16/21 08:32 Dose: 100 mls/hr Documented by: Tranexamic Acid 1,000 mg/ (Sodium Chloride) 60 mls @ 240 mls/hr IV ONETIME ONE Stop: 02/16/21 08:29 Last Admin: 02/16/21 08:57 Dose: 240 mls/hr Documented by: Sodium Chloride (Normal Saline) 1,000 mls @ 125 mls/hr IV ASDIRECTED [facility] Last Admin: 02/16/21 22:12 Dose: 125 mls/hr Documented by: Neostigmine Methylsulfate (Neostigmine Methylsulfate 1 Mg/Ml 5 Ml Syringe) Confirm Administered Dose 5 mg .ROUTE .STK-MED ONE Stop: 02/16/21 07:21 Non-Formulary Medication (Bromfenac Sodium [Bromfenac Sodium]) 1 drop EYELF DAILY [facility] Ondansetron HCl (Ondansetron 4 Mg/2 Ml Sdv) Confirm Administered Dose 4 mg .ROUTE .STK-MED ONE Stop: 02/16/21 07:21 Povidone Iodine (Povidone-Iodine 10% Soln 118.25 Ml Bottle) Confirm Administered Dose 1 ml .ROUTE .STK-MED ONE Stop: 02/16/21 06:51 Last Admin: 02/16/21 10:11 Dose: 1 ml Documented by: Propofol (Propofol 200 Mg/20 Ml Sdv) Confirm Administered Dose 200 mg .ROUTE .STK-MED ONE Stop: 02/16/21 07:21 Rocuronium [place] (Rocuronium 50 Mg/5 Ml Vial) Confirm Administered Dose 50 mg .ROUTE .STK-MED ONE Stop: 02/16/21 07:21 - Exam Wound/Incisions: Dressing Dry and Intact, No Drainage Quality Assessment: Urine Catheter, DVT Prophylaxis General: Alert, Oriented, Cooperative, No Acute Distress Extremities: Joint Swelling (bilateral LE lymphedema per baseline ), Leg Pain (right ), Limited Range of Motion Skin: Intact, Moist Neurological: No New Focal Deficit Psy/Mental Status: Alert, Normal Affect, Normal Mood Sepsis Event Note - Evaluation Sepsis Screening Result: No Definite Risk - Focused Exam Vital Signs: Vital Signs Temp Pulse Resp BP Pulse Ox 02/17/21 03:10 98.9 F 65 18 149/49 H 95 02/16/21 23:21 98.9 F 67 16 177/51 H 97 - Problem List & Annotations (1) Status post total right knee replacement SNOMED Code(s): 3761677381974, 2062992108293 Code(s): Z96.651 - PRESENCE OF RIGHT ARTIFICIAL KNEE JOINT Status: Acute Current Visit: Yes (2) Postoperative anemia due to acute blood loss SNOMED Code(s): 97014852535111517 Code(s): D62 - ACUTE POSTHEMORRHAGIC ANEMIA Status: Acute Current Visit: Yes - Problem List Review Problem List Initiated/Reviewed/Updated: Yes - My Orders Last 24 Hours: Active Orders 24 hr Category Date Time Status Patient Status [ADT] Routine ADT 02/16/21 11:01 Active Ambulate [RC] QID Care 02/16/21 11:01 Active Antiembolic Devices [RC] .Routine Care 02/16/21 11:02 Active Head of Bed Elevation [RC] ASDIRECTED Care 02/16/21 11:01 Active Intake and Output [RC] QSHIFT Care 02/16/21 11:01 Active May Shower [RC] ASDIRECTED Care 02/16/21 11:01 Active Neurovascular Check [RC] Q4H Care 02/16/21 11:01 Active Notify Provider Vital Signs [RC] ASDIRECTED Care 02/16/21 11:01 Active Oxygen Therapy [RC] PRN Care 02/16/21 11:01 Active RT Incentive Spirometry [RC] Q1HWA Care 02/16/21 11:01 Active Up to Chair [RC] QID Care 02/16/21 11:01 Active Vital Signs [RC] Q4H Care 02/16/21 11:01 Active Wound Care [RC] Q12H Care 02/16/21 11:01 Active Consult to Case Management/Screening Technician [CONS] Cons 02/16/21 11:01 Active Routine OT Evaluation and Treatment [CONS] Routine Cons 02/16/21 11:01 Active PT Evaluation and Treatment [CONS] Routine Cons 02/16/21 11:01 Active PT Evaluation and Treatment [CONS] Routine Cons 02/16/21 11:01 Active Regular Diet [DIET] Diet 02/16/21 Lunch Active Acetaminophen [TylenoL] Med 02/16/21 11:01 Active 650 mg PO Q4H PRN Acetaminophen/HYDROcodone [Brielle 325-5 MG] Med 02/16/21 11:01 Active 1 tab PO Q4H PRN Acetaminophen/oxyCODONE [Percocet 325-5 MG] Med 02/16/21 11:01 Active 1 - 2 tab PO Q4H PRN Acyclovir [Zovirax] Med 02/17/21 09:00 Active 400 mg PO DAILY Docusate Sodium [Colace] Med 02/16/21 21:00 Active 100 mg PO BID Enoxaparin [Lovenox] Med 02/17/21 09:00 Active 30 mg SUBCUT DAILY Gabapentin [Neurontin] Med 02/16/21 21:00 Active 300 mg PO BID Ketorolac [Acular 0.5% Ophth Soln] Med 02/16/21 22:00 Active 0 ml EYELF QID Labetalol [Normodyne] Med 02/16/21 11:32 Active See Dose Instructions IVPUSH Q1H PRN Lactobacillus Rhamnosus GG [Culturelle] Med 02/16/21 21:00 Active 1 cap PO BID Levothyroxine Med 02/16/21 14:00 Active 25 mcg PO MoWeFr@0730 Levothyroxine Med 02/17/21 07:30 Active 37.5 mcg PO SuTuThSa@0730 Losartan [Cozaar] Med 02/17/21 09:00 Active 100 mg PO DAILY Magnesium Hydroxide [Milk of Magnesia] Med 02/16/21 11:01 Active 30 ml PO BID PRN Morphine Med 02/16/21 11:01 Active 1 mg IVPUSH Q1H PRN Nozin [ Nasal Owner Consulting Engineer] Med 02/16/21 07:00 Active 1 applic NASBOTH BID Ondansetron [Zofran] Med 02/16/21 11:01 Active 4 mg IVPUSH Q4H PRN Sodium Chloride 0.9% [Normal Saline] 1,000 ml Med 02/16/21 23:15 Active IV ASDIRECTED allopurinoL [Zyloprim] Med 02/17/21 09:00 Active 100 mg PO DAILY ceFAZolin [Ancef 1 GM/50 ML] 1 gm Med 02/16/21 16:00 Active Premix Bag 1 bag IV Q8H prednisoLONE acetate [Pred Forte 1% Ophth Susp] Med 02/16/21 14:00 Active 0 ml EYELF TID Antiembolic Hose [OM.PC] Routine Oth 02/16/21 11:01 Ordered DVT/VTE Prophylaxis Reflex [OM.PC] Routine Oth 02/16/21 11:01 Ordered Ice Therapy [OM.PC] Per Unit Routine Oth 02/16/21 11:01 Ordered Medication Continuation Instructions [OM.PC] Per Unit Oth 02/16/21 11:01 Ordered Routine Oral Care [OM.PC] Routine Oth 02/16/21 11:01 Ordered Sequential Compression Device [OM.PC] Routine Oth 02/16/21 11:01 Ordered Resuscitation Status Routine Resus Stat 02/16/21 11:01 Ordered Medication Orders Acetaminophen (Acetaminophen 325 Mg Tab) 650 mg PO Q4H PRN PRN Reason: Pain/Fever Hydrocodone Bitart/Acetaminophen (Acetaminophen/Hydrocodone 325-5 Mg Tab) 1 tab PO Q4H PRN PRN Reason: Pain (mild 1-3) Acyclovir (Acyclovir 200 Mg Cap) 400 mg PO DAILY [facility] Allopurinol (Allopurinol 100 Mg Tab) 100 mg PO DAILY [facility] Bandage/Support Products (Nozin Nasal Owner Consulting Engineer) 1 applic NASBOTH BID [facility] Last Admin: 02/16/21 20:59 Dose: 1 applic Documented by: Admin: 02/16/21 12:36 Dose: Not Given Documented by: Admin: 02/16/21 07:02 Dose: 1 applic Documented by: NETTE Docusate Sodium (Docusate Sodium 100 Mg Cap) 100 mg PO BID [facility] Last Admin: 02/16/21 20:59 Dose: 100 mg Documented by: NATTY Enoxaparin Sodium (Enoxaparin 30 Mg/0.3 Ml Syringe) 30 mg SUBCUT DAILY [facility] Gabapentin (Gabapentin 300 Mg Cap) 300 mg PO BID [facility] Last Admin: 02/16/21 20:59 Dose: 300 mg Documented by: NATTY Cefazolin Sodium/Dextrose 1 gm (/ Premix) 50 mls @ 100 mls/hr IV Q8H [facility] Stop: 02/17/21 08:29 Last Admin: 02/17/21 07:31 Dose: 100 mls/hr Documented by: JUAN JOSÉ Infusion: 02/17/21 00:19 Dose: 100 mls/hr Documented by: JUAN JOSÉ Admin: 02/16/21 23:49 Dose: 100 mls/hr Documented by: Infusion: 02/16/21 16:28 Dose: 100 mls/hr Documented by: Admin: 02/16/21 15:58 Dose: 100 mls/hr Documented by: BARB Sodium Chloride (Normal Saline) 1,000 mls @ 75 mls/hr IV ASDIRECTED [facility] Ketorolac Tromethamine (Ketorolac 0.5% Ophth Soln 5 Ml Bottle*Pom*) 0 ml EYELF QID [facility] Last Admin: 02/17/21 05:55 Dose: 1 drop Documented by: Admin: 02/16/21 21:00 Dose: 1 drop Documented by: NATTY Labetalol HCl (Labetalol 20 Mg/4 Ml Syringe) 0 mg IVPUSH Q1H PRN; Protocol PRN Reason: Hypertension Last Admin: 02/16/21 11:37 Dose: 5 mg Documented by: JONATHAN Lactobacillus Rhamnosus (Lactobacillus Rhamnosus Gg (Probiotic) Cap) 1 cap PO BID [facility] Last Admin: 02/16/21 20:59 Dose: 1 cap Documented by: NATTY Levothyroxine Sodium (Levothyroxine 25 Mcg Tab) 25 mcg PO MoWeFr@0730 [facility] Last Admin: 02/16/21 16:04 Dose: 25 mcg Documented by: BARB Levothyroxine Sodium (Levothyroxine 25 Mcg Tab) 37.5 mcg PO SuTuThSa@0730 [facility] Last Admin: 02/17/21 07:24 Dose: 37.5 mcg Documented by: JUAN JOSÉ Losartan Potassium (Losartan 50 Mg Tab) 100 mg PO DAILY [facility] Magnesium Hydroxide (Magnesium Hydroxide 400 Mg/5 Ml Susp 30 Ml Cup) 30 ml PO BID PRN PRN Reason: Constipation Morphine Sulfate (Morphine 2 Mg/Ml Syringe) 1 mg IVPUSH Q1H PRN PRN Reason: Breakthrough Pain Last Admin: 02/16/21 22:50 Dose: 1 mg Documented by: Admin: 02/16/21 12:40 Dose: 1 mg Documented by: BARB Ondansetron HCl (Ondansetron 4 Mg/2 Ml Sdv) 4 mg IVPUSH Q4H PRN PRN Reason: Nausea/Vomiting Oxycodone/Acetaminophen (Acetaminophen/Oxycodone 325-5 Mg Tab) 1 - 2 tab PO Q4H PRN PRN Reason: Pain Last Admin: 02/17/21 07:30 Dose: 2 tab Documented by: JUAN JOSÉ Admin: 02/17/21 03:07 Dose: 2 tab Documented by: Admin: 02/16/21 20:58 Dose: 2 tab Documented by: Admin: 02/16/21 17:03 Dose: 2 tab Documented by: Admin: 02/16/21 12:35 Dose: 2 tab Documented by: BARB Prednisolone Acetate (Prednisolone Acetate 1% Ophth Susp 5 Ml Bottle) 0 ml EYELF TID [facility] Last Admin: 03/22/21 20:59 Dose: 1 drop Documented by: Admin: 02/16/21 16:04 Dose: 1 drop Documented by: BARB - Assessment Assessment (Free Text/Narrative):: Assessment: Patient is a pleasant 70 y/o female, s/p R TKA, POD#1. Patient tolerated surgery well with no major complications. Patient reports significant pain in R knee after surgery yesterday evening; prn morphine and percocet were utilized. Reports pain is improving this morning. Denied fever, chills, nor shortness of breath. Patient was able to transfer from bed to chair yesterday, required x2 assist to help move legs into and out of the bed. Unable to ambulate outside of room due to pain in R LE yesterday evening. Patient does have lymphedema of bilateral lower extremities per baseline. Was unable to wear Jas Hose due to discomfort. SCDs in place on bilateral LEs. JAMES dressing was applied during surgery, but patient disconnected the vacuum seal yesterday evening. A new JAMES dressing was applied, vacuum sealed, and LORETO wrap secured around R LE this morning. Was hypertensive yesterday following surgery; does take losartan for hypertension at home. Denied headaches, blurred vision. Drop in HgB on POD#1 to 11.2. Patient is asymptomatic; denied orthostatic hypotension, dizziness, nor lightheadedness. Patient status changed from same day surgery to inpatient, as she is requiring prolonged hospitalization at this time for additional physical therapy services to aid in ambulation and transfers with legs into/out of bed to be safe for discharge. Exam: R knee incision healing well; dried blood on steri strips. New JAMES dressing applied and vacuum sealed. LORETO wrap intact on R LE. Significant lymph edema of bilateral LEs. R LE capillary refill intact. Plan: -Continue with physical therapy and occupational therapy services daily while in the hospital -Hypertension: IV NS rate was decreased from 125mls/hr to 75mls/hr. Home BP medications to be administered today. May saline lock as oral intake improves. Continue to monitor vitals q4 hrs. -Postoperative anemia: stable and asymptomatic at this time. Continue to monitor for orthostatic hypotension or dizziness. Will recheck CBC is patient becomes symptomatic. -DVT/VTE prophylaxis: Continue with SCDs and 30 mg Lovenox qd. -Chavarria may be discontinued pending improvement in ambulation status with physical therapy after morning session. -JAMES negative pressure dressing to remain in place on R knee. -Anticipate discharge to SNF; patient would prefer [facility] in [facility], as this is where she rehabbed L knee after L TKA and did well there.
[2021-02-17] MEDS ORDERED: BROMFENAC SODIUM 0.09% EYELF SCH (09:00)
[2021-02-17] MEDS: Acyclovir 200 MG Cap PO SCH (10:02)
[2021-02-17] MEDS: Gabapentin 300 MG Cap PO SCH ×2 (10:02→21:16)
[2021-02-17] MEDS: Allopurinol 100 MG Tab PO SCH (10:03)
[2021-02-17] MEDS: Losartan 50 MG Tab PO SCH (10:04)
[2021-02-17] MEDS: Lactobacillus Rhamnosus GG (Probiotic) Cap PO SCH ×2 (10:04→21:16)
[2021-02-17] MEDS: Docusate Sodium 100 MG Cap PO SCH ×2 (10:04→22:19)
[2021-02-17] MEDS: Enoxaparin 30 MG/0.3 ML Syringe SUBCUT SCH (10:05)
[2021-02-17] MEDS: prednisoLONE Acetate 1% Ophth Susp 5 ML Bottle EYELF SCH ×3 (10:18→21:16)
[2021-02-17] MEDS: Nozin Nasal Sanitizer NASBOTH SCH ×2 (10:18→21:15)
[2021-02-18] MEDS: Acetaminophen/oxyCODONE 325-5 MG Tab PO PRN ×5 (00:05→23:04)
[2021-02-18] MEDS: KETOROLAC 0.5% EYELF SCH ×4 (06:18→21:01)
[2021-02-18] MEDS: Acyclovir 200 MG Cap PO SCH (09:41)
[2021-02-18] MEDS: Gabapentin 300 MG Cap PO SCH ×2 (09:42→21:01)
[2021-02-18] MEDS: Levothyroxine 25 MCG Tab PO SCH (09:42)
[2021-02-18] MEDS: Nozin Nasal Sanitizer NASBOTH SCH ×2 (09:42→21:01)
[2021-02-18] MEDS: Losartan 50 MG Tab PO SCH (09:42)
[2021-02-18] MEDS: Allopurinol 100 MG Tab PO SCH (09:42)
[2021-02-18] MEDS: Docusate Sodium 100 MG Cap PO SCH ×2 (09:42→21:01)
[2021-02-18] MEDS: Enoxaparin 30 MG/0.3 ML Syringe SUBCUT SCH (09:43)
[2021-02-18] MEDS: prednisoLONE Acetate 1% Ophth Susp 5 ML Bottle EYELF SCH ×4 (09:43→21:02)
[2021-02-18] MEDS: Lactobacillus Rhamnosus GG (Probiotic) Cap PO SCH ×2 (09:43→21:00)
--- NOTE | 2021-02-18 16:26 | PCM.SURGPN ---
- General Info Date of Service: 02/18/21 Date of Surgery/Procedure: 02/16/21 POD#: 2 Post-Op Diagnosis: right knee osteoarthritis Functional Status: Reports: Tolerating Diet, Ambulating (with FWW x1 assist for safety ), Urinating, Incentive Spirometry - Review of Systems General: Reports: Fever (100.5) HEENT: Reports: No Symptoms Pulmonary: Reports: No Symptoms Cardiovascular: Reports: No Symptoms Gastrointestinal: Reports: No Symptoms Genitourinary: Reports: No Symptoms Musculoskeletal: Reports: Joint Pain (right knee ), Joint Swelling (bilateral LEs ) Skin: Reports: No Symptoms Neurological: Reports: No Symptoms Psychiatric: Reports: No Symptoms - Patient Data Vitals - Most Recent: Last Vital Signs Temp 100.5 F 02/18/21 14:28 Pulse 74 02/18/21 14:28 Resp 16 02/18/21 14:28 BP 147/49 H 02/18/21 14:28 Pulse Ox 95 02/18/21 14:28 Weight - Most Recent: 284 lb 6.4 oz I&O - Last 24 Hours: Intake & Output 02/18/21 02/18/21 02/18/21 06:59 14:59 22:59 Intake Total 1820 Output Total 400 400 Balance -400 1420 Med Orders - Current: Current Medications Acetaminophen (Acetaminophen 325 Mg Tab) 650 mg PO Q4H PRN PRN Reason: Pain/Fever Hydrocodone Bitart/Acetaminophen (Acetaminophen/Hydrocodone 325-5 Mg Tab) 1 tab PO Q4H PRN PRN Reason: Pain (mild 1-3) Acyclovir (Acyclovir 200 Mg Cap) 400 mg PO DAILY [facility] Last Admin: 02/18/21 09:41 Dose: 400 mg Documented by: Allopurinol (Allopurinol 100 Mg Tab) 100 mg PO DAILY [facility] Last Admin: 02/18/21 09:42 Dose: 100 mg Documented by: Bandage/Support Products (Nozin Nasal Agriculture Specialist) 1 applic NASBOTH BID [facility] Last Admin: 02/18/21 09:42 Dose: 1 applic Documented by: Docusate Sodium (Docusate Sodium 100 Mg Cap) 100 mg PO BID [facility] Last Admin: 02/18/21 09:42 Dose: 100 mg Documented by: Enoxaparin Sodium (Enoxaparin 30 Mg/0.3 Ml Syringe) 30 mg SUBCUT DAILY [facility] Last Admin: 02/18/21 09:43 Dose: 30 mg Documented by: Gabapentin (Gabapentin 300 Mg Cap) 300 mg PO BID [facility] Last Admin: 02/18/21 09:42 Dose: 300 mg Documented by: Sodium Chloride (Normal Saline) 1,000 mls @ 75 mls/hr IV ASDIRECTED [facility] Last Admin: 02/17/21 10:05 Dose: 75 mls/hr Documented by: Ketorolac Tromethamine (Ketorolac 0.5% Ophth Soln 5 Ml Bottle*Pom*) 0 ml EYELF QID [facility] Last Admin: 02/18/21 15:29 Dose: 1 drop Documented by: Labetalol HCl (Labetalol 20 Mg/4 Ml Syringe) 0 mg IVPUSH Q1H PRN; Protocol PRN Reason: Hypertension Last Admin: 02/16/21 11:37 Dose: 5 mg Documented by: Lactobacillus Rhamnosus (Lactobacillus Rhamnosus Gg (Probiotic) Cap) 1 cap PO BID [facility] Last Admin: 02/18/21 09:43 Dose: 1 cap Documented by: Levothyroxine Sodium (Levothyroxine 25 Mcg Tab) 25 mcg PO MoWeFr@0730 [facility] Last Admin: 02/18/21 09:42 Dose: 25 mcg Documented by: Levothyroxine Sodium (Levothyroxine 25 Mcg Tab) 37.5 mcg PO SuTuThSa@0730 [facility] Last Admin: 02/17/21 07:24 Dose: 37.5 mcg Documented by: Losartan Potassium (Losartan 50 Mg Tab) 100 mg PO DAILY [facility] Last Admin: 02/18/21 09:42 Dose: 100 mg Documented by: Magnesium Hydroxide (Magnesium Hydroxide 400 Mg/5 Ml Susp 30 Ml Cup) 30 ml PO BID PRN PRN Reason: Constipation Morphine Sulfate (Morphine 2 Mg/Ml Syringe) 1 mg IVPUSH Q1H PRN PRN Reason: Breakthrough Pain Last Admin: 02/16/21 22:50 Dose: 1 mg Documented by: Ondansetron HCl (Ondansetron 4 Mg/2 Ml Sdv) 4 mg IVPUSH Q4H PRN PRN Reason: Nausea/Vomiting Oxycodone/Acetaminophen (Acetaminophen/Oxycodone 325-5 Mg Tab) 1 - 2 tab PO Q4H PRN PRN Reason: Pain Last Admin: 02/18/21 12:55 Dose: 2 tab Documented by: Prednisolone Acetate (Prednisolone Acetate 1% Ophth Susp 5 Ml Bottle) 0 ml EYELF TID VIJAY Last Admin: 02/18/21 15:31 Dose: Not Given Documented by: Discontinued Medications Bandage/Support Products (Nozin Nasal Agriculture Specialist) 1 applic NASBOTH BID VIJAY Bupivacaine HCl (Bupivacaine 0.5% 50 Ml Mdv) Confirm Administered Dose 50 ml .ROUTE .STK-MED ONE Stop: 02/16/21 09:06 Last Admin: 02/16/21 10:49 Dose: 20 ml Documented by: Dexamethasone (Dexamethasone 4 Mg/Ml Sdv) Confirm Administered Dose 4 mg .ROUTE .STK-MED ONE Stop: 02/16/21 07:21 Fentanyl (Fentanyl 250 Mcg/5 Ml Sdv) Confirm Administered Dose 250 mcg .ROUTE .STK-MED ONE Stop: 02/16/21 07:21 Fentanyl (Fentanyl 250 Mcg/5 Ml Sdv) Confirm Administered Dose 250 mcg .ROUTE .STK-MED ONE Stop: 02/16/21 09:57 Fentanyl (Fentanyl 100 Mcg/2 Ml Sdv) 50 mcg IVPUSH ONETIME ONE Stop: 02/16/21 11:29 Last Admin: 02/16/21 11:35 Dose: 50 mcg Documented by: Glycopyrrolate (Glycopyrrolate 0.2 Mg/Ml 5 Ml Mdv) Confirm Administered Dose 1 mg .ROUTE .STK-MED ONE Stop: 02/16/21 07:21 Hydroxyzine HCl (Hydroxyzine Hcl 100 Mg/2 Ml Sdv) 100 mg IM ONETIME ONE Stop: 02/16/21 11:29 Last Admin: 02/16/21 11:35 Dose: 100 mg Documented by: Lactated Ringer's (Ringers, Lactated) 1,000 mls @ 75 mls/hr IV ASDIRECTED [facility] Lactated Ringer's (Ringers, Lactated) 1,000 mls @ 999 mls/hr IV ASDIRECTED ONE Stop: 02/13/21 08:30 Last Admin: 02/16/21 07:03 Dose: 999 mls/hr Documented by: Cefazolin Sodium/Dextrose 2 gm (/ Premix) 50 mls @ 100 mls/hr IV ONETIME ONE Stop: 02/16/21 07:29 Last Admin: 02/16/21 08:32 Dose: 100 mls/hr Documented by: Tranexamic Acid 1,000 mg/ (Sodium Chloride) 60 mls @ 240 mls/hr IV ONETIME ONE Stop: 02/16/21 08:29 Last Admin: 02/16/21 08:57 Dose: 240 mls/hr Documented by: Sodium Chloride (Normal Saline) 1,000 mls @ 125 mls/hr IV ASDIRECTED [facility] Last Admin: 02/16/21 22:12 Dose: 125 mls/hr Documented by: Cefazolin Sodium/Dextrose 1 gm (/ Premix) 50 mls @ 100 mls/hr IV Q8H [facility] Stop: 02/17/21 08:29 Last Admin: 02/17/21 07:31 Dose: 100 mls/hr Documented by: Neostigmine Methylsulfate (Neostigmine Methylsulfate 1 Mg/Ml 5 Ml Syringe) Confirm Administered Dose 5 mg .ROUTE .STK-MED ONE Stop: 02/16/21 07:21 Non-Formulary Medication (Bromfenac Sodium [Bromfenac Sodium]) 1 drop EYELF DAILY [facility] Ondansetron HCl (Ondansetron 4 Mg/2 Ml Sdv) Confirm Administered Dose 4 mg .ROUTE .STK-MED ONE Stop: 02/16/21 07:21 Povidone Iodine (Povidone-Iodine 10% Soln 118.25 Ml Bottle) Confirm Administered Dose 1 ml .ROUTE .STK-MED ONE Stop: 02/16/21 06:51 Last Admin: 02/16/21 10:11 Dose: 1 ml Documented by: Propofol (Propofol 200 Mg/20 Ml Sdv) Confirm Administered Dose 200 mg .ROUTE .STK-MED ONE Stop: 02/16/21 07:21 Rocuronium [place] (Rocuronium 50 Mg/5 Ml Vial) Confirm Administered Dose 50 mg .ROUTE .STK-MED ONE Stop: 02/16/21 07:21 - Exam Wound/Incisions: Dressing Dry and Intact, No Drainage Quality Assessment: DVT Prophylaxis General: Alert, Oriented, Cooperative, No Acute Distress Extremities: Joint Swelling (bilateral LEs ), Leg Pain (right ), Limited Range of Motion Skin: Dry, Intact Neurological: No New Focal Deficit Psy/Mental Status: Alert, Normal Affect, Normal Mood Sepsis Event Note - Evaluation Sepsis Screening Result: No Definite Risk - Focused Exam Vital Signs: Vital Signs Temp Pulse Resp BP BP Pulse Ox 02/18/21 14:28 100.5 F 74 16 147/49 H 95 02/18/21 11:47 99.9 F 72 16 132/59 L 90 L 02/18/21 09:42 137/45 L 02/18/21 07:24 97.9 F 74 16 137/45 L 90 L - Problem List & Annotations (1) Status post total right knee replacement SNOMED Code(s): 0056252357146, 0911273843587 Code(s): Z96.651 - PRESENCE OF RIGHT ARTIFICIAL KNEE JOINT Status: Acute Current Visit: Yes (2) Postoperative anemia due to acute blood loss SNOMED Code(s): 03292231972671334 Code(s): D62 - ACUTE POSTHEMORRHAGIC ANEMIA Status: Acute Current Visit: Yes - Problem List Review Problem List Initiated/Reviewed/Updated: Yes - My Orders Last 24 Hours: Medication Orders Acetaminophen (Acetaminophen 325 Mg Tab) 650 mg PO Q4H PRN PRN Reason: Pain/Fever Hydrocodone Bitart/Acetaminophen (Acetaminophen/Hydrocodone 325-5 Mg Tab) 1 tab PO Q4H PRN PRN Reason: Pain (mild 1-3) Acyclovir (Acyclovir 200 Mg Cap) 400 mg PO DAILY [facility] Last Admin: 02/18/21 09:41 Dose: 400 mg Documented by: JUAN JOSÉ Admin: 02/17/21 10:02 Dose: 400 mg Documented by: JUAN JOSÉ Allopurinol (Allopurinol 100 Mg Tab) 100 mg PO DAILY [facility] Admin: 02/18/21 09:42 Dose: 100 mg Documented by: JUAN JOSÉ Admin: 02/17/21 10:03 Dose: 100 mg Documented by: JUAN JOSÉ Bandage/Support Products (Nozin Nasal Agriculture Specialist) 1 applic NASBOTH BID [facility] Admin: 02/18/21 09:42 Dose: 1 applic Documented by: JUAN JOSÉ Admin: 02/17/21 21:15 Dose: 1 applic Documented by: Admin: 02/17/21 10:18 Dose: 1 applic Documented by: JUAN JOSÉ Admin: 02/16/21 20:59 Dose: 1 applic Documented by: Admin: 02/16/21 12:36 Dose: Not Given Documented by: Admin: 02/16/21 07:02 Dose: 1 applic Documented by: NETTE Docusate Sodium (Docusate Sodium 100 Mg Cap) 100 mg PO BID [facility] Last Admin: 02/18/21 09:42 Dose: 100 mg Documented by: JUAN JOSÉ Admin: 02/17/21 22:19 Dose: 100 mg Documented by: Admin: 02/17/21 10:04 Dose: 100 mg Documented by: JUAN JOSÉ Admin: 02/16/21 20:59 Dose: 100 mg Documented by: NATTY Enoxaparin Sodium (Enoxaparin 30 Mg/0.3 Ml Syringe) 30 mg SUBCUT DAILY [facility] Last Admin: 02/18/21 09:43 Dose: 30 mg Documented by: JUAN JOSÉ Admin: 02/17/21 10:05 Dose: 30 mg Documented by: JUAN JOSÉ Gabapentin (Gabapentin 300 Mg Cap) 300 mg PO BID [facility] Admin: 02/18/21 09:42 Dose: 300 mg Documented by: JUAN JOSÉ Admin: 02/17/21 21:16 Dose: 300 mg Documented by: Admin: 02/17/21 10:02 Dose: 300 mg Documented by: JUAN JOSÉ Admin: 02/16/21 20:59 Dose: 300 mg Documented by: NATTY Sodium Chloride (Normal Saline) 1,000 mls @ 75 mls/hr IV ASDIRECTED [facility] Admin: 02/17/21 10:05 Dose: 75 mls/hr Documented by: JUAN JOSÉ Ketorolac Tromethamine (Ketorolac 0.5% Ophth Soln 5 Ml Bottle*Pom*) 0 ml EYELF QID [facility] Last Admin: 02/18/21 15:29 Dose: 1 drop Documented by: JUAN JOSÉ Admin: 02/18/21 09:43 Dose: 1 drop Documented by: JUAN JOSÉ Admin: 02/18/21 06:18 Dose: 1 drop Documented by: Admin: 02/17/21 21:16 Dose: 1 drop Documented by: Admin: 02/17/21 17:26 Dose: 1 drop Documented by: JUAN JOSÉ Admin: 02/17/21 10:18 Dose: 1 drop Documented by: JUAN JOSÉ Admin: 02/17/21 05:55 Dose: 1 drop Documented by: Admin: 02/16/21 21:00 Dose: 1 drop Documented by: NATTY Labetalol HCl (Labetalol 20 Mg/4 Ml Syringe) 0 mg IVPUSH Q1H PRN; Protocol PRN Reason: Hypertension Last Admin: 02/16/21 11:37 Dose: 5 mg Documented by: JONATHAN Lactobacillus Rhamnosus (Lactobacillus Rhamnosus Gg (Probiotic) Cap) 1 cap PO BID [facility] Last Admin: 02/18/21 09:43 Dose: 1 cap Documented by: JUAN JOSÉ Admin: 02/17/21 21:16 Dose: 1 cap Documented by: Admin: 02/17/21 10:04 Dose: 1 cap Documented by: JUAN JOSÉ Admin: 02/16/21 20:59 Dose: 1 cap Documented by: NATTY Levothyroxine Sodium (Levothyroxine 25 Mcg Tab) 25 mcg PO MoWeFr@0730 [facility] Last Admin: 02/18/21 09:42 Dose: 25 mcg Documented by: JUAN JOSÉ Admin: 02/16/21 16:04 Dose: 25 mcg Documented by: BARB Levothyroxine Sodium (Levothyroxine 25 Mcg Tab) 37.5 mcg PO SuTuThSa@0730 [facility] Last Admin: 02/17/21 07:24 Dose: 37.5 mcg Documented by: JUAN JOSÉ Losartan Potassium (Losartan 50 Mg Tab) 100 mg PO DAILY [facility] Last Admin: 02/18/21 09:42 Dose: 100 mg Documented by: JUAN JOSÉ Admin: 02/17/21 10:04 Dose: 100 mg Documented by: JUAN JOSÉ Magnesium Hydroxide (Magnesium Hydroxide 400 Mg/5 Ml Susp 30 Ml Cup) 30 ml PO BID PRN PRN Reason: Constipation Morphine Sulfate (Morphine 2 Mg/Ml Syringe) 1 mg IVPUSH Q1H PRN PRN Reason: Breakthrough Pain Last Admin: 02/16/21 22:50 Dose: 1 mg Documented by: Admin: 02/16/21 12:40 Dose: 1 mg Documented by: BARB Ondansetron HCl (Ondansetron 4 Mg/2 Ml Sdv) 4 mg IVPUSH Q4H PRN PRN Reason: Nausea/Vomiting Oxycodone/Acetaminophen (Acetaminophen/Oxycodone 325-5 Mg Tab) 1 - 2 tab PO Q4H PRN PRN Reason: Pain Last Admin: 02/18/21 12:55 Dose: 2 tab Documented by: JUAN JOSÉ Admin: 02/18/21 06:28 Dose: 2 tab Documented by: Admin: 02/18/21 00:05 Dose: 2 tab Documented by: Admin: 02/17/21 19:36 Dose: 2 tab Documented by: Admin: 02/17/21 14:27 Dose: 2 tab Documented by: JUAN JOSÉ Admin: 02/17/21 07:30 Dose: 2 tab Documented by: JUAN JOSÉ Admin: 02/17/21 03:07 Dose: 2 tab Documented by: Admin: 02/16/21 20:58 Dose: 2 tab Documented by: Admin: 02/16/21 17:03 Dose: 2 tab Documented by: Admin: 02/16/21 12:35 Dose: 2 tab Documented by: BARB Prednisolone Acetate (Prednisolone Acetate 1% Ophth Susp 5 Ml Bottle) 0 ml EYELF TID VIJAY Gambino Admin: 02/18/21 15:31 Dose: Not Given Documented by: JUAN JOSÉ Admin: 02/18/21 09:43 Dose: 1 drop Documented by: JUAN JOSÉ Admin: 02/17/21 21:16 Dose: 1 drop Documented by: Admin: 02/17/21 14:29 Dose: Not Given Documented by: JUAN JOSÉ Admin: 02/17/21 10:18 Dose: 1 drop Documented by: JUAN JOSÉ Admin: 02/16/21 20:59 Dose: 1 drop Documented by: Admin: 02/16/21 16:04 Dose: 1 drop Documented by: BARB - Assessment Assessment (Free Text/Narrative):: Patient is a pleasant 70 y/o female, s/p right total knee arthroplasty, POD#2. Patient tolerated surgery well with no complications. Reports pain in knee when up ambulating or transferring, but pain is well controlled at rest. Pain has been controlled with PO medications for the past 24 hours. Tolerating regular diet well with no nausea or emesis. Endorsed passing gas. Chavarria d/c POD#1. IV Saline locked POD#1. Continues to participate in PT and OT daily; ambulated 70 feet with FWW today. Continues to need assistance with transfers into and out of bed with guiding legs. Patient remains hemodynamically stable. Temperature at 100.5. Denied chills, shortness of breath. Has been using IS; getting up to 1500 multiple times. Postoperative anemia stable; denied orthostatic hypotension, light headedness, nor dizziness. Patient requires prolonged hospitalization at this time for additional therapy services to be safe for discharge; PT focused on guiding legs into/out of bed with transfers. Exam: bilateral LE lymph edema and swelling. LORETO wrap intact on R LE, dressing dry with no active drainage. Mild warmth to touch. R LE neurovascular intact. Plan: * Continue with PT and OT services daily while in the hospital * Encouraged patient to continue using incentive spirometry * Placement available at [facility] tomorrow; anticipate discharge there tomorrow afternoon * JAMES dressing will be removed prior to discharge by ortho provider
[2021-02-19] MEDS: Acetaminophen/oxyCODONE 325-5 MG Tab PO PRN ×3 (04:58→12:15)
[2021-02-19] MEDS: KETOROLAC 0.5% EYELF SCH ×2 (04:59→12:11)
[2021-02-19] MEDS: Levothyroxine 25 MCG Tab PO SCH (08:06)
[2021-02-19] MEDS: Nozin Nasal Sanitizer NASBOTH SCH (08:07)
[2021-02-19] MEDS: Losartan 50 MG Tab PO SCH (08:08)
[2021-02-19] MEDS: Docusate Sodium 100 MG Cap PO SCH (08:08)
[2021-02-19] MEDS: Lactobacillus Rhamnosus GG (Probiotic) Cap PO SCH (08:09)
[2021-02-19] MEDS: prednisoLONE Acetate 1% Ophth Susp 5 ML Bottle EYELF SCH (08:10)
[2021-02-19] MEDS: Enoxaparin 30 MG/0.3 ML Syringe SUBCUT SCH (08:10)
[2021-02-19] MEDS: Gabapentin 300 MG Cap PO SCH (08:10)
[2021-02-19] MEDS: Acyclovir 200 MG Cap PO SCH (08:11)
[2021-02-19] MEDS: Allopurinol 100 MG Tab PO SCH (08:11)
--- NOTE | 2021-02-19 08:45 | PCM.DCSUM1 ---
Discharge Summary - Hospital Course HPI Initial Comments: Deidre 70 y/o female with right knee osteoarthritis. Symptoms refractory to conservative management. Patient underwent left total knee arthroplasty one year prior and had good results. She elected to undergo right total knee arthroplasty. Tolerated surgery well with no complications. Admitted for post- surgical management of pain and prolonged stay due to additional therapy services to be safe for discharge. Diagnosis: Stroke: No Modified [place] Scale: No Symptoms at All Modified [place] Scale Score: 0 - Discharge Data Discharge Date: 02/19/21 Discharge Disposition: DC/Tfer to SNF 03 Condition: Good - Referral to Home Health Date of Face to Face Encounter: 02/19/21 Primary Care Physician: Sally Aldridge, Skilled Need: Daily dressing changes with medical gauze and tape + LORETO wrap on R LE, assistance with L LE lymphedema leg wrap, ADLs - Discharge Diagnosis/Problem(s) (1) Status post total right knee replacement SNOMED Code(s): 6738771340408, [id number] ICD Code: Z96.651 - PRESENCE OF RIGHT ARTIFICIAL KNEE JOINT Status: Acute Current Visit: Yes (2) Postoperative anemia due to acute blood loss SNOMED Code(s): 60857379999984422 ICD Code: D62 - ACUTE POSTHEMORRHAGIC ANEMIA Status: Acute Current Visit: Yes - Patient Summary/Data Operative Procedure(s) Performed: right total knee arthroplasty Consults: Consultations 02/16/21 11:01 Consult to Case Management/Test Car Driver [CONS] Routine Comment: Physician Instructions: Service(s) to be Consulted: Case Management Reason for Consult: Plan for Discharge Special Instructions: s/p R TKA OT Evaluation and Treatment [CONS] Routine Please Evaluate and Treat. OT Reason for Consult: ADL's Special Instructions: s/p R TKA This query below is only for informational purposes and is not editable. PT Evaluation and Treatment [CONS] Routine Please Evaluate and Treat. PT Reason for Consult: Post op Ortho Surgery Special Instructions: s/p R TKA, WBAT This query below is only for informational purposes and is not editable. PT Evaluation and Treatment [CONS] Routine Please Evaluate and Treat. PT Reason for Consult: Post op Ortho Surgery Knee Pending Discharge: Yes, 1- 2 days Special Instructions: s/p R TKA Schedule first outpatient PT appointment in 3-5 day post discharge. This query below is only for informational purposes and is not editable. Hospital Course: Patient is a pleasant 70-year-old female, status post right total knee arthroplasty, postop day #3. Patient tolerated surgery well with no complications. Patient initially struggled with postoperative pain the evening of surgery; prn pain medications were utilized. Pain has since been well managed over the past 2 days with PO medications. Tolerated regular diet well with no nausea/emesis. Chavarria removed POD#1. IV Saline locked POD#1. Postoperative anemia has been stable. Patient denied orthostatic hypotension, dizziness, nor lightheadedness. Patient has remained hemodynamically stable throughout hospital stay. Some hypertension; patient received home BP medications while in the hospital. Increased BP likely attributed to increased pain. Temperature was 100.5 on POD#2. Patient denied subjective fever, chills, shortness of breath. Used incentive spirometer multiple times/day, achieving up to 1500. Temperature has since been trending down to within normal limits. Patient hospitalization was prolonged for additional therapy services to aid in ambulation and safe transfers with legs into/out of bed. Patient was compliant with physical and occupational therapy while in the hospital. Worked on ROM, achieving flexion to 78. Ambulated 75 feet with FWW multiple times. Able to transfer from bed to chair with x1 assist to help with guiding legs. Patient able to complete ADLs with minimal assistance. JAMES dressing was placed over incision, but was removed accidentally by patient in the late evening of surgery. New JAMES dressing was placed morning of POD#1. Patient compliant with LORETO wrap over JAMES dressing on R LE. SCDs worn on bilateral LEs. Patient unable to comply with Jas hose due to discomfort and swelling from LE lymphedema. Patient has significant lymphedema of bilateral LEs per baseline. JAMES dressing was removed prior to discharge on POD#3 and a new gauze dressing applied. LORETO wrap was secured on R LE over dressing. Exam: Bilateral LEs with prominent lymphedema. Incision with steristrips intact. No surrounding erythema of incision. Mild warmth to touch of R LE. Ecchymosis present along lateral posterior aspect of popliteal space. Patient denied pain in popliteal fossa. Negative Eric's. New dressing applied over R knee incision, dry and intact. LORETO wrap secured around dressing. - Patient Instructions Diet: Usual Diet as Tolerated Activity: Apply Ice, As Tolerated, Elevate Extremity, Full Weight Bearing Driving: Do Not Drive Showering/Bathing: May Shower Wound/Incision Care: Keep Operative Site/Wound Site Clean and Dry, Change Dressing Daily Notify Provider of: Fever, Increased Pain, Swelling and Redness, Drainage Other/Special Instructions: Weight bearing status: full weight bearing as tolerated. Continue with physical therapy: s/p R TKA- work on ROM, progression with ambulation, transferring legs into/out of bed. Continue with occupational therapy: assitance with ADLs and dressing changes. R knee dressing change daily with medical gauze and tape. LORETO wrap over dressing on R LE. Okay to remove this dressing for showers. Assist with L LE lymphedema wrap application. Continue with 30 mg Lovenox subcutaneous daily. Continue with Nozin Nasal [place]. Paper script sent for prn pain medication - Discharge Plan *PRESCRIPTION DRUG MONITORING PROGRAM REVIEWED*: Yes *COPY OF PRESCRIPTION DRUG MONITORING REPORT IN PATIENT WILLIE: Not Applicable Home Medications: Home Meds Acetaminophen [Tylenol Arthritis] 650 mg PO TID PRN 03/27/18 [History] Cholecalciferol (Vitamin D3) [D3 Dots] 4,000 unit PO DAILY 03/27/18 [History] Levothyroxine Sodium [Synthroid] 25 mcg PO MOWEFR 03/27/18 [History] Losartan Potassium [Cozaar] 100 mg PO DAILY 03/27/18 [History] [place]-3/DHA/Epa/Fish Oil [[place]-3 Fish Oil 1,000 MG Sfgl] 1 cap PO DAILY 03/27/18 [History] allopurinoL [Zyloprim] 100 mg PO DAILY 03/27/18 [History] Levothyroxine Sodium [Synthroid] 37.5 mcg PO SUTUTHSA 04/02/19 [History] Lactobacillus Acidophilus [Probiotic] 1 cap PO BID 11/08/19 [History] Acyclovir [Zovirax] 400 mg PO DAILY 02/12/20 [History] prednisoLONE acetate [Pred Forte 1% Ophth Susp] 1 drop EYELF TID 05/22/20 [History] Gabapentin [Neurontin] 300 mg PO BID 01/28/21 [History] Multivitamin [Multiple Vitamins] 1 tab PO DAILY 01/28/21 [History] Ibuprofen 2 - 3 tab PO DAILY 02/16/21 [History] Ketorolac [Acular 0.5% Ophth Soln] 1 drop EYELF QID 02/16/21 [History] Enoxaparin [Lovenox] 30 mg SUBCUT DAILY 02/19/21 [History] Oxygen Therapy Mode: Room Air Patient Handouts: Total Knee Replacement, Care After, [id number], Preventing Problems After Surgery, Preventing Constipation After Surgery Referrals: Stefan Hunter MD [Physician] - 03/03/21 1:15 pm (Please arrive 15 minutes early to register for your appointment.) - Discharge Summary/Plan Comment DC Time >30 min.: No Discharge Summary/Plan Comment: * Anticipate discharge this afternoon to [facility] * Order forms completed for long-term: patient to continue with physical therapy at [facility], staff will aid with daily dressing changes to R knee incision and lymphedema leg wraps. * Staff at [facility] to continue to monitor vital signs; patient encouraged to follow up with PCP if blood pressure remains elevated. * Paper script for 1 week supply of pain medication; 5mg-325mg Percocet, 1-2 tabs q6 hrs prn, #50. * Patient has history of cellulitis and DVTs. Education provided to patient regarding warning signs and follow up parameters of SSIs, cellulitis, and DVTs. Given history of DVTs, patient to continue with 30 mg Lovenox subcutaneous daily for DVT/VTE prophylaxis for the next 28 days. * Patient to continue with Nozin [place]. * Follow up with orthopedic clinic in 2 weeks. * Encouraged patient to call with any concerns or questions prior to scheduled apt. Patient expressed understanding of the above plan. - Patient Data Vitals - Most Recent: Last Vital Signs Temp 98.6 F 02/19/21 07:37 Pulse 75 02/19/21 07:37 Resp 16 02/19/21 07:37 BP 155/69 H 02/19/21 08:08 Pulse Ox 97 02/19/21 07:37 Weight - Most Recent: 284 lb 6.4 oz I&O - Last 24 hours: Intake & Output 02/18/21 02/19/21 02/19/21 22:59 06:59 14:59 Intake Total 360 800 Output Total 600 200 200 Balance -240 600 -200 Med Orders - Current: Current Medications Acetaminophen (Acetaminophen 325 Mg Tab) 650 mg PO Q4H PRN PRN Reason: Pain/Fever Hydrocodone Bitart/Acetaminophen (Acetaminophen/Hydrocodone 325-5 Mg Tab) 1 tab PO Q4H PRN PRN Reason: Pain (mild 1-3) Acyclovir (Acyclovir 200 Mg Cap) 400 mg PO DAILY [facility] Last Admin: 02/19/21 08:11 Dose: 400 mg Documented by: Allopurinol (Allopurinol 100 Mg Tab) 100 mg PO DAILY [facility] Last Admin: 02/19/21 08:11 Dose: 100 mg Documented by: Bandage/Support Products (Nozin Nasal Environmental Studies Program Director) 1 applic NASBOTH BID [facility] Last Admin: 02/19/21 08:07 Dose: 1 applic Documented by: Docusate Sodium (Docusate Sodium 100 Mg Cap) 100 mg PO BID [facility] Last Admin: 02/19/21 08:08 Dose: 100 mg Documented by: Enoxaparin Sodium (Enoxaparin 30 Mg/0.3 Ml Syringe) 30 mg SUBCUT DAILY [facility] Last Admin: 02/19/21 08:10 Dose: 30 mg Documented by: Gabapentin (Gabapentin 300 Mg Cap) 300 mg PO BID [facility] Last Admin: 02/19/21 08:10 Dose: 300 mg Documented by: Ketorolac Tromethamine (Ketorolac 0.5% Ophth Soln 5 Ml Bottle*Pom*) 0 ml EYELF QID [facility] Last Admin: 02/19/21 04:59 Dose: 1 drop Documented by: Labetalol HCl (Labetalol 20 Mg/4 Ml Syringe) 0 mg IVPUSH Q1H PRN; Protocol PRN Reason: Hypertension Last Admin: 02/16/21 11:37 Dose: 5 mg Documented by: Lactobacillus Rhamnosus (Lactobacillus Rhamnosus Gg (Probiotic) Cap) 1 cap PO BID [facility] Last Admin: 02/19/21 08:09 Dose: 1 cap Documented by: Levothyroxine Sodium (Levothyroxine 25 Mcg Tab) 25 mcg PO MoWeFr@0730 [facility] Last Admin: 02/18/21 09:42 Dose: 25 mcg Documented by: Levothyroxine Sodium (Levothyroxine 25 Mcg Tab) 37.5 mcg PO SuTuThSa@0730 [facility] Last Admin: 02/19/21 08:06 Dose: 37.5 mcg Documented by: Losartan Potassium (Losartan 50 Mg Tab) 100 mg PO DAILY [facility] Last Admin: 02/19/21 08:08 Dose: 100 mg Documented by: Magnesium Hydroxide (Magnesium Hydroxide 400 Mg/5 Ml Susp 30 Ml Cup) 30 ml PO BID PRN PRN Reason: Constipation Last Admin: 02/19/21 04:58 Dose: 30 ml Documented by: Morphine Sulfate (Morphine 2 Mg/Ml Syringe) 1 mg IVPUSH Q1H PRN PRN Reason: Breakthrough Pain Last Admin: 02/16/21 22:50 Dose: 1 mg Documented by: Ondansetron HCl (Ondansetron 4 Mg/2 Ml Sdv) 4 mg IVPUSH Q4H PRN PRN Reason: Nausea/Vomiting Oxycodone/Acetaminophen (Acetaminophen/Oxycodone 325-5 Mg Tab) 1 - 2 tab PO Q4H PRN PRN Reason: Pain Last Admin: 02/19/21 04:58 Dose: 1 tab Documented by: Prednisolone Acetate (Prednisolone Acetate 1% Ophth Susp 5 Ml Bottle) 0 ml EYELF TID VIJAY Last Admin: 02/19/21 08:10 Dose: 1 drop Documented by: Discontinued Medications Bandage/Support Products (Nozin Nasal [employer] Program Director) 1 applic NASBOTH BID VIJAY Bupivacaine HCl (Bupivacaine 0.5% 50 Ml Mdv) Confirm Administered Dose 50 ml .ROUTE .STK-MED ONE Stop: 02/16/21 09:06 Last Admin: 02/16/21 10:49 Dose: 20 ml Documented by: Dexamethasone (Dexamethasone 4 Mg/Ml Sdv) Confirm Administered Dose 4 mg .ROUTE .STK-MED ONE Stop: 02/16/21 07:21 Fentanyl (Fentanyl 250 Mcg/5 Ml Sdv) Confirm Administered Dose 250 mcg .ROUTE .STK-MED ONE Stop: 02/16/21 07:21 Fentanyl (Fentanyl 250 Mcg/5 Ml Sdv) Confirm Administered Dose 250 mcg .ROUTE .STK-MED ONE Stop: 02/16/21 09:57 Fentanyl (Fentanyl 100 Mcg/2 Ml Sdv) 50 mcg IVPUSH ONETIME ONE Stop: 02/16/21 11:29 Last Admin: 02/16/21 11:35 Dose: 50 mcg Documented by: Glycopyrrolate (Glycopyrrolate 0.2 Mg/Ml 5 Ml Mdv) Confirm Administered Dose 1 mg .ROUTE .STK-MED ONE Stop: 02/16/21 07:21 Hydroxyzine HCl (Hydroxyzine Hcl 100 Mg/2 Ml Sdv) 100 mg IM ONETIME ONE Stop: 02/16/21 11:29 Last Admin: 02/16/21 11:35 Dose: 100 mg Documented by: Lactated Ringer's (Ringers, Lactated) 1,000 mls @ 75 mls/hr IV ASDIRECTED [facility] Lactated Ringer's (Ringers, Lactated) 1,000 mls @ 999 mls/hr IV ASDIRECTED ONE Stop: 02/13/21 08:30 Last Admin: 02/16/21 07:03 Dose: 999 mls/hr Documented by: Cefazolin Sodium/Dextrose 2 gm (/ Premix) 50 mls @ 100 mls/hr IV ONETIME ONE Stop: 02/16/21 07:29 Last Admin: 02/16/21 08:32 Dose: 100 mls/hr Documented by: Tranexamic Acid 1,000 mg/ (Sodium Chloride) 60 mls @ 240 mls/hr IV ONETIME ONE Stop: 02/16/21 08:29 Last Admin: 02/16/21 08:57 Dose: 240 mls/hr Documented by: Sodium Chloride (Normal Saline) 1,000 mls @ 125 mls/hr IV ASDIRECTED [facility] Last Admin: 02/16/21 22:12 Dose: 125 mls/hr Documented by: Cefazolin Sodium/Dextrose 1 gm (/ Premix) 50 mls @ 100 mls/hr IV Q8H [facility] Stop: 02/17/21 08:29 Last Admin: 02/17/21 07:31 Dose: 100 mls/hr Documented by: Sodium Chloride (Normal Saline) 1,000 mls @ 75 mls/hr IV ASDIRECTED [facility] Stop: 02/19/21 00:02 Last Admin: 02/17/21 10:05 Dose: 75 mls/hr Documented by: Neostigmine Methylsulfate (Neostigmine Methylsulfate 1 Mg/Ml 5 Ml Syringe) Confirm Administered Dose 5 mg .ROUTE .STK-MED ONE Stop: 02/16/21 07:21 Non-Formulary Medication (Bromfenac Sodium [Bromfenac Sodium]) 1 drop EYELF DAILY [facility] Ondansetron HCl (Ondansetron 4 Mg/2 Ml Sdv) Confirm Administered Dose 4 mg .ROUTE .STK-MED ONE Stop: 02/16/21 07:21 Povidone Iodine (Povidone-Iodine 10% Soln 118.25 Ml Bottle) Confirm Administered Dose 1 ml .ROUTE .STK-MED ONE Stop: 02/16/21 06:51 Last Admin: 02/16/21 10:11 Dose: 1 ml Documented by: Propofol (Propofol 200 Mg/20 Ml Sdv) Confirm Administered Dose 200 mg .ROUTE .STK-MED ONE Stop: 02/16/21 07:21 Rocuronium [place] (Rocuronium 50 Mg/5 Ml Vial) Confirm Administered Dose 50 mg .ROUTE .STK-MED ONE Stop: 02/16/21 07:21
--- NOTE | 2021-03-05 08:16 | OR ---
DATE OF PROCEDURE: 02/16/2021 SURGEON: Stefan Hunter MD PREOPERATIVE DIAGNOSIS: Osteoarthritis, right knee. POSTOPERATIVE DIAGNOSIS: Osteoarthritis, right knee, end-stage. PROCEDURE: Right total knee arthroplasty using Loly Persona components with a size 7 femur, F tibia, 12 mm tibial polyethylene, and a 29 mm patella. CASE MANAGEMENT SPECIALIST: BRYCE Carroll ANESTHESIA: General. INDICATIONS: Jordana is a 70-year-old female with a history of progressive pain in both knees for the past several years. It is getting to the point of limiting her activities of daily living, ambulation, etc. She underwent a left total knee arthroplasty last year and did quite well with this. She now presents for right knee arthroplasty. Risks, benefits, potential complications were discussed at some length. She does have the significant lymphedema of the lower extremities and is aware that she is at increased risk for infection, DVT, wound healing problems, etc. Physician assistant commissioner was used as a quality assistant in this procedure due to the difficulty in positioning the patient's leg, maintaining exposure, etc. DESCRIPTION OF PROCEDURE: After adequate anesthesia was obtained, the patient was placed supine with the tourniquet above the right upper thigh. Right leg was prepped and draped in a sterile fashion. Leg was exsanguinated and tourniquet inflated to 300 mmHg pressure. A longitudinal incision was made over the anterior aspect of the knee, carried down through the subcutaneous tissues, and hemostasis was obtained with electrocautery. Medial parapatellar arthrotomy was performed. The patella was partially everted and the posterior aspect of the patella was resected with an oscillating saw. The knee was flexed, and the intramedullary canal of the femur was drilled. The intramedullary guide was placed. Distal femoral cutting guide was secured, and the distal femur was resected with an oscillating saw. Attention was then turned to the tibia. Extramedullary alignment jig is utilized. This was secured and aligned with the middle of the ankle. This was confirmed with a drop quynh. The proximal tibia was then resected with an oscillating saw. Cut was removed, and the remaining medial and lateral menisci were excised. The knee was flexed, and the femur is measured for a size 7 component. The cutting jig was secured, and remaining femoral cuts were made including an intercondylar notch cut for a posterior cruciate-sacrificing component. It was noted at this point that there was some excessive bleeding likely from the tourniquet effect on the venous system without good compression arterially. The tourniquet was released, and the remaining bone preparation and trialing was completed without the tourniquet. Tibia was sized to an F component, which was pinned in position. Intramedullary canal was drilled and the pins were punched. A trial reduction was then attempted. Showed some tightness medially and medial release was performed. Continued to show some excessive tightness medially. The tibial resection guide was then replaced on the pins, resecting an additional 2 mm. Prior to resection, the drop quynh was utilized once again and showed good alignment through the middle of the ankle. This resection was done. Trials were then utilized, which showed good stability with a 10 mm insert. The patella was resurfaced with a 29 mm patellar button. This tracked somewhat laterally and a lateral release was performed. The trials were then removed. The knee was thoroughly irrigated. The joint space was packed with a lap and the leg was wrapped once again with an Esmarch and tourniquet inflated this time to 350 mmHg pressure. Lap sponge was removed and the joint surfaces were irrigated and dried and the components were then cemented in place. Excess cement was removed. The knee was held in full extension with a 10 mm insert until the cement had cured. The knee was taken through range of motion. Flexion and extension gaps were checked. There was just a slight amount of play with the implanted components, and an 11 and 12 mm trials were utilized. The 12 mm provided best balance in flexion and extension with full extension. The trial was removed. The knee was irrigated, and the final polyethylene was snapped into position. Knee was irrigated once again with pulse lavage. This was followed by a dilute Betadine solution and pulse lavaged once again. Capsule was closed in an interrupted fashion with #2 Ethibond with the knee flexed. The skin was closed with 2-0 Vicryl and running 3-0 Monocryl. Steri-Strips were applied. A Magaly negative pressure dressing was then applied with an Attila wrap with light compression. The patient tolerated procedure very well. There were no complications, taken from the operating room in stable condition. Stefan Hunter MD /[id number]
== END 2021-02-19 12:50 | DRG 470 ==
LOC: JP.SDS 06:24 → JP.MS 12:00 → JP.SDS 02-17 07:33
PROVIDERS: ADMIT Specialist; ATTEND Specialist
PROC: 0SRC0J9 Replacement of Right Knee Joint with Synthetic Substitute, Cemented, Open Approach (ICD-10-PCS; principal; 2021-02-16)
DX: M17.11 Unilateral primary osteoarthritis, right knee (principal); D62 Acute posthemorrhagic anemia; Z68.43 Body mass index [BMI] 50.0-59.9, adult; E78.5 Hyperlipidemia, unspecified; I10 Essential (primary) hypertension; E55.9 Vitamin D deficiency, unspecified; I73.9 Peripheral vascular disease, unspecified; M79.7 Fibromyalgia; E03.9 Hypothyroidism, unspecified; E66.01 Morbid (severe) obesity due to excess calories; M81.0 Age-related osteoporosis without current pathological fracture; I89.0 Lymphedema, not elsewhere classified; I83.893 Varicose veins of bilateral lower extremities with other complications; N28.9 Disorder of kidney and ureter, unspecified; M1A.39X1 Chronic gout due to renal impairment, multiple sites, with tophus (tophi); Z96.641 Presence of right artificial hip joint; Z79.890 Hormone replacement therapy; Z79.899 Other long term (current) drug therapy; Z90.49 Acquired absence of other specified parts of digestive tract; Z79.52 Long term (current) use of systemic steroids; Z88.8 Allergy status to other drugs, medicaments and biological substances
CPT/HCPCS: 36415; 73560-26-RT; 73560-RT; 80053; 85027; 86850; 86900; 86901; 97110-GP; 97116-GP; 97162-GP; 97165-GO; 97530-GP; 97535-GO; A9270-GY; C1713; C1776; J0690; J1100; J1650; J2270; J2405; J2704; J2710; J3010; J3410; J3490; J7030; J7120

== ENCOUNTER 2021-07-31 13:16 | Emergency (ER) | payer MEDICARE ==
[2021-07-31] MEDS ORDERED: Ketorolac 30 MG/ML SDV IM ONE (14:07)
--- NOTE | 2021-07-31 14:09 | EDM.PDOC ---
ED HPI GENERAL MEDICAL PROBLEM - General Chief Complaint: Cardiovascular Problem Stated Complaint: HIGH BLOOD PRESSURE Time Seen by Provider: 07/31/21 13:27 Source of Information: Reports: Patient, Family, Old Records, RN Notes Reviewed History Limitations: Reports: No Limitations - History of Present Illness INITIAL COMMENTS - FREE TEXT/NARRATIVE: 71-year-old female presents emergency department day complaint of blood pressure she was receiving hip injections in the [facility] blood pressure was noted to be quite elevated well over systolics of 200 was brought to the emergency department for further evaluation. She states her blood pressure usually runs around 130-140 she is only on one blood pressure medication of Cozaar however she has been having trouble with her hips and has a lot of pain today. Denies any other symptoms other than slight headache. Did review her blood work from last month which has been unremarkable, does admit to recent high salt intake - Related Data Allergies Allergy/AdvReac Type Severity Reaction Status Date / Time lisinopril AdvReac Mild Cough Verified 07/31/21 13:37 Home Meds: Home Meds Acetaminophen [Tylenol Arthritis] 650 mg PO TID PRN 03/27/18 [History] Cholecalciferol (Vitamin D3) [D3 Dots] 4,000 unit PO DAILY 03/27/18 [History] Levothyroxine Sodium [Synthroid] 25 mcg PO MOWEFR 03/27/18 [History] Losartan Potassium [Cozaar] 100 mg PO DAILY 03/27/18 [History] Haysi-3/DHA/Epa/Fish Oil [Haysi-3 Fish Oil 1,000 MG Sfgl] 1 cap PO DAILY 03/27/18 [History] allopurinoL [Zyloprim] 100 mg PO DAILY 03/27/18 [History] Levothyroxine Sodium [Synthroid] 37.5 mcg PO SUTUTHSA 04/02/19 [History] Lactobacillus Acidophilus [Probiotic] 1 cap PO BID 11/08/19 [History] Acyclovir [Zovirax] 400 mg PO DAILY 02/12/20 [History] Ibuprofen 4 tab PO BID 02/16/21 [History] Gabapentin [Neurontin] 400 mg PO BID 07/16/21 [History] Ibuprofen 200 mg PO DAILY PRN 07/31/21 [History] NIFEdipine [Nifedipine ER] 30 mg PO DAILY #30 tab.er.24 07/31/21 [Rx] Past Medical History HEENT History: Reports: Impaired Vision Cardiovascular History: Reports: Blood Clots/VTE/DVT, High Cholesterol, Hypertension Gastrointestinal History: Reports: Cholelithiasis, Colon Polyp, Pancreatitis, Other (See Below) Other Gastrointestinal History: c-diff [employer] History: Reports: , Spontaneous Musculoskeletal History: Reports: Arthritis, Back Pain, Chronic, Other (See Below) Other Musculoskeletal History: R knee pain. lt knee pain. L lower back, hip, groin and leg pain Endocrine/Metabolic History: Reports: Hypothyroidism, Obesity/BMI 30+, Vitamin D Deficiency, Other (See Below) Other Endocrine/Metabolic History: para thyroid removed Hematologic History: Reports: None Immunologic History: Reports: None Oncologic (Cancer) History: Reports: None Dermatologic History: Reports: None - Infectious Disease History Infectious Disease History: Reports: Chicken Pox, Measles, Mumps, Shingles - Past Surgical History Head Surgeries/Procedures: Reports: None HEENT Surgical History: Reports: None Cardiovascular Surgical History: Reports: None GI Surgical History: Reports: Appendectomy, Cholecystectomy, Colonoscopy, Hernia, Abdominal, Polypectomy Other GI Surgeries/Procedures: c-diff Female Surgical History: Reports: Section Endocrine Surgical History: Reports: Parathyroidectomy Neurological Surgical History: Reports: Lumbar Spine, Other (See Below) Other Neurological Surgeries/Procedures: L-spine d/t spinal stenosis (2009) Musculoskeletal Surgical History: Reports: Carpal Tunnel, Hip Replacement, Knee Replacement Other Musculoskeletal Surgeries/Procedures:: R RICHARD 07/2012. LT TKA 01/07/2020. R TKA 02/16/2021 Social & Family History - Family History Family Medical History: No Pertinent Family History - Tobacco Use Tobacco Use Status *Q: Never Tobacco User - Caffeine Use Caffeine Use: Reports: Coffee Other Caffeine Use: 1 cup day Caffeine Use Comment: none for 2 months - Recreational Drug Use Recreational Drug Use: No - Living Situation & Occupation Living situation: Reports: , with Family (retired [employer] 20 years, [employer] 47 years to [place], 9 children, lives in [place], [place].) Occupation: Retired ED ROS GENERAL - Review of Systems Review Of Systems: See Below Constitutional: Reports: No Symptoms HEENT: Reports: No Symptoms Respiratory: Reports: No Symptoms Cardiovascular: Reports: Blood Pressure Problem GI/Abdominal: Reports: No Symptoms Musculoskeletal: Reports: Joint Pain (Hip pain) Neurological: Reports: Headache ED EXAM, GENERAL - Physical Exam Exam: See Below Exam Limited By: No Limitations General Appearance: Alert, WD/WN, No Apparent Distress Respiratory/Chest: No Respiratory Distress, Lungs Clear, Normal Breath Sounds, No Accessory Muscle Use, Chest Non-Tender Cardiovascular: Regular Rate, Rhythm, No Murmur GI/Abdominal: Soft, Non-Tender Course - Vital Signs Last Recorded V/S: Last Vital Signs Temp 97.8 F 07/31/21 13:27 Pulse 74 07/31/21 16:39 Resp 16 07/31/21 13:51 BP 183/82 H 07/31/21 16:39 Pulse Ox 94 L 07/31/21 16:39 - Orders/Labs/Meds Meds: Medications Discontinued Medications Generic Name Dose Route Start Last Admin Trade Name [place] PRN Reason Stop Dose Admin Ketorolac Tromethamine 30 mg 07/31/21 14:07 07/31/21 14:13 Ketorolac 30 Mg/Ml Sdv IM 07/31/21 14:08 30 mg ONETIME ONE Administration Nifedipine 10 mg 07/31/21 15:00 07/31/21 15:19 Nifedipine 10 Mg Cap PO 07/31/21 15:01 10 mg ONETIME ONE Administration Nitroglycerin 0.4 mg 07/31/21 15:50 07/31/21 16:09 Nitroglycerin 0.4 Mg Tab.Sl SL 07/31/21 15:51 0.4 mg ONETIME ONE Administration Departure - Departure Time of Disposition: 16:45 Disposition: Home, Self-Care 01 Condition: Fair Clinical Impression: Hypertensive urgency Referrals: Sally Aldridge DO [Primary Care Provider] - Forms: ED Department Discharge Additional Instructions: [facility] please start your nifedipine tomorrow, try and reduce your salt intake, please keep your follow-up appointment with your primary care next week Sepsis Event Note (ED) - Evaluation Sepsis Screening Result: No Definite Risk - Focused Exam Vital Signs: Vital Signs Temp Pulse Resp BP BP BP Pulse Ox 07/31/21 16:39 74 183/82 H 94 L 07/31/21 16:09 211/95 H 07/31/21 15:39 81 231/95 H 94 L 07/31/21 15:19 211/99 H 07/31/21 14:55 59 L 211/99 H 07/31/21 13:51 69 16 204/94 H 96 07/31/21 13:32 76 16 221/95 H 95 07/31/21 13:27 97.8 F 77 16 214/87 H 95 - Assessment/Plan Plan: Assessment Acuity = acute Site and laterality = hypertensive urgency Etiology = possibly related to recent salt ingestion Manifestations = none Location of injury = Home Lab values = none Plan Had some improvement combination nifedipine and sublingual nitro plan is to start nifedipine 10 mg 1 tablet daily medications faxed to pharmacy follow-up primary care on the This note was dictated using [employer] voice recognition software please call with any questions on syntax or grammar.
[2021-07-31] MEDS ORDERED: NIFEdipine 10 MG Cap PO ONE (15:00)
[2021-07-31] MEDS ORDERED: Nitroglycerin 0.4 MG Tab.SL SL ONE (15:50)
== END 2021-07-31 17:10 | disposition home or self-care (01) ==
LOC: JP.ED 13:16
DX: I16.0 Hypertensive urgency (principal); E78.00 Pure hypercholesterolemia, unspecified; E03.9 Hypothyroidism, unspecified; E66.9 Obesity, unspecified; Z88.8 Allergy status to other drugs, medicaments and biological substances; Z68.43 Body mass index [BMI] 50.0-59.9, adult; Z79.899 Other long term (current) drug therapy
CPT/HCPCS: 96372; 99283; A9270; J1885

== ENCOUNTER 2022-08-11 06:53 | Day surgery (SDC) | payer MEDICARE ==
[2022-08-11] MEDS ORDERED: Bupivacaine 0.5% 30 ML SDV ONE (06:55)
[2022-08-11] MEDS ORDERED: Nozin Nasal Sanitizer NASBOTH ONE (07:15)
[2022-08-11] MEDS ORDERED: Propofol 200 MG/20 ML SDV ONE (07:44)
[2022-08-11] MEDS ORDERED: Dexamethasone 4 MG/ML SDV ONE (07:44)
[2022-08-11] MEDS ORDERED: Succinylcholine 200 MG/10 ML MDV ONE (07:44)
[2022-08-11] MEDS ORDERED: Glycopyrrolate 0.2 MG/ML 5 ML MDV ONE (07:44)
[2022-08-11] MEDS ORDERED: Rocuronium 50 MG/5 ML Vial ONE (07:44)
[2022-08-11] MEDS ORDERED: Ondansetron 4 MG/2 ML SDV ONE (07:44)
[2022-08-11] MEDS ORDERED: Neostigmine Methylsulfate 1 MG/ML 5 ML Syringe ONE (07:44)
[2022-08-11] MEDS ORDERED: fentaNYL 250 MCG/5 ML SDV ONE (07:44)
[2022-08-11 07:53] LABS: ESTIMATED GFR 53 mL/min (>60)
[2022-08-11] MEDS ORDERED: Lactated Ringers 1,000 ML IV SCH (08:00)
[2022-08-11] MEDS ORDERED: ceFAZolin 2 GM in Sodium Chloride 0.9% 50 ML IV ONE (08:15)
[2022-08-11] MEDS ORDERED: ceFAZolin 2 GM in Premix Bag 1 BAG IV ONE (08:15)
== END 2022-08-11 11:30 | disposition home or self-care (01) ==
LOC: JP.SDS 06:53
PROVIDERS: ATTEND Specialist
DX: M65.862 Other synovitis and tenosynovitis, left lower leg (principal); M22.8X2 Other disorders of patella, left knee; M25.862 Other specified joint disorders, left knee; I10 Essential (primary) hypertension; E03.9 Hypothyroidism, unspecified; E66.01 Morbid (severe) obesity due to excess calories; E78.5 Hyperlipidemia, unspecified; Z90.49 Acquired absence of other specified parts of digestive tract; Z98.890 Other specified postprocedural states; Z79.899 Other long term (current) drug therapy; Z79.890 Hormone replacement therapy; Z88.8 Allergy status to other drugs, medicaments and biological substances; Z68.42 Body mass index [BMI] 45.0-49.9, adult
CPT/HCPCS: 29873; 36415; 80053; 85027; A9270; J0330; J0690; J1100; J2405; J2704; J2710; J3010; J3490; J7120

== ENCOUNTER 2025-09-04 09:01 | Day surgery (SDC) | payer MEDICARE ==
[~2025-09-04 09:01] MED LIST changes: +Dexamethasone 4 MG/ML SDV ONE; +Glycopyrrolate 0.2 MG/ML 5 ML MDV ONE; -Lactated Ringers 1,000 ML IV ONE; +Ondansetron 4 MG/2 ML SDV ONE; +Propofol 200 MG/20 ML SDV ONE; +fentaNYL 250 MCG/5 ML SDV ONE
[2025-09-04 09:26] LABS: PLATELET COUNT,PLT 343.0 K/uL (130-375); RED BLOOD CELL COUNT 4.96 M/uL (3.77-5.24); WHITE BLOOD CELL COUNT,WBC 8.0 K/uL (3.2-11.0)
[2025-09-04] MEDS: Nozin Nasal Sanitizer NASBOTH ONE (09:31)
[2025-09-04 09:41] LABS: BLOOD UREA NITROGEN,BUN 28.0 mg/dL (7-18); CARBON DIOXIDE,CO2 26.0 mmol/L (21-32); CHLORIDE,CL 104.0 mmol/L (100-108); CREATININE 0.9 mg/dL (0.6-1.0); EST CRCL DRUG DOSING (CG) 40.45 mL/min; ESTIMATED GFR 66.0 mL/min (>60); GLUCOSE RANDOM 110.0 mg/dL (74-106); POTASSIUM,K 4.2 mmol/L (3.6-5.2); SODIUM,NA 139.0 mmol/L (140-148)
[2025-09-04 09:46] LABS: INR 1.0; PTT,PARTIAL THROMBOPLSTIN TIME 24.7 sec (21.8-27.3)
[2025-09-04] MEDS ORDERED: Succinylcholine 200 MG/10 ML MDV ONE (09:56)
[2025-09-04] MEDS: Lactated Ringers 1,000 ML IV SCH (10:11)
== END 2025-09-04 13:30 | disposition home or self-care (01) ==
LOC: JP.SDS 09:01
PROVIDERS: ATTEND Specialist
DX: T84.54XA Infection and inflammatory reaction due to internal left knee prosthesis, initial encounter (principal); I10 Essential (primary) hypertension; E03.9 Hypothyroidism, unspecified; Z88.8 Allergy status to other drugs, medicaments and biological substances; Z79.890 Hormone replacement therapy; Z79.899 Other long term (current) drug therapy; Y83.1 Surgical operation with implant of artificial internal device as the cause of abnormal reaction of the patient, or of later complication, without mention of misadventure at the time of the procedure
CPT/HCPCS: 29871; 29876; 36415; 80048; 85027; 85610; 85730; 87070; 87075; 87077; 87205; 93005; 93010; A9270; J0330; J0665; J1100; J1596; J2405; J2704; J2710; J3010; J3373; J7050; J7120; J3490